=== PATIENT | male | born 1960 | race African-American/Black ===

== ENCOUNTER → 2017-09-27 08:56 | Outpatient (CLI) | payer OTHER, SELFPAY ==
[2017-09-27 11:51] LABS: Absolute Lymphocyte Count 1.79 X10^3/ul (0.83-4.51); Absolute Neutrophil Count 1.7 X10^3/uL (2.0-7.7); Eosinophil# 0.15 X10^3/uL; Eosinophils% 3.6 % (0-5); Hematocrit 39.7 % (40-54); Hemoglobin 12.7 g/dl (13.0-16.5); Lymphocyte # 1.79 X10^3/ul (4.0); Lymphocyte % 42.6 % (19-41); Mean Corpuscular Volume 78.3 fL (80-94); Mean Platelet Vol. 11.9 fl (6.2-12.0); Monocyte# 0.54 X10^3/uL; Monocyte% 12.9 % (0-10); Neutrophil # 1.72 X10^3/uL (2.7-7.7); Neutrophil % 40.9 % (47-70); Platelet Count 233 K/mm3 (150-450); RBC Distribution Width CV 14.7 % (11.6-14.6); RBC Distribution Width SD 41.5 fl (35.1-43.9); Red Blood Count 5.07 M/mm3 (4.6-6.2); White Blood Count 4.2 K/mm3 (4.4-11.0)
[2017-09-27 11:52] LABS: POSITIVE COUNT NO; POSITIVE DIFFERENTIAL NO; POSITIVE MORPHOLOGY NO
[2017-09-27 12:30] LABS: ALB/GLOB Ratio 0.8 RATIO (0.9-2.4); AST(SGOT) 16 U/L (15-37); Alanine Aminotransfer ALT/SGPT 31 U/L (16-61); Albumin, Serum 3.5 g/dL (3.2-5.0); Alkaline Phosphatase 131 U/L (45-117); Anion Gap 9 (5-15); BUN 9 mg/dL (7-18); BUN/Creat Ratio 8.4 RATIO (10-20); Calcium,Total 8.5 mg/dL (8.5-10.1); Chloride 104 mmol/L (98-107); Creatinine, Serum 1.07 mg/dL (0.70-1.30); EST Glomerular Filtration Rate 75 mL/min (>60); Est Glom Filt Rate - Afr Amer 91 mL/min (>60); Globulin 4.4 g/dL (2.2-4.2); Glucose 117 mg/dL (74-106); PSA,Total - Annual Screen 0.61 ng/mL (0.00-4.00); Potassium 3.6 mmol/L (3.5-5.1); Protein, Total 7.9 g/dL (6.4-8.2); Sodium Level 139 mmol/L (136-145); Thyroid Stim Hormone (TSH) 1.16 uIU/mL (0.358-3.74)
[2017-09-29 06:24] LABS: Hep C Antibodies 0.1 s/co ratio (0.0-0.9)
== END ==
PROVIDERS: Family Provider Family Medicine Geriatric Medicine; PCP Family Medicine Geriatric Medicine; Visit Provider Family Medicine Geriatric Medicine
DX: I10 Essential (primary) hypertension (principal); Z12.5 Encounter for screening for malignant neoplasm of prostate; Z13.89 Encounter for screening for other disorder
CPT/HCPCS: 36415; 80053; 84153; 84443; 85025; 86803; G0103

== ENCOUNTER → 2018-03-25 10:33 | Outpatient (CLI) | payer OTHER, SELFPAY ==
[2018-03-25 12:22] LABS: Absolute Lymphocyte Count 1.91 X10^3/ul (0.83-4.51); Absolute Neutrophil Count 2.1 X10^3/uL (2.0-7.7); Basophil# 0.01 X10^3/uL; Basophil% 0.2 % (0-1); Eosinophils% 2.2 % (0-5); Hematocrit 40.8 % (40-54); Hemoglobin 12.6 g/dl (13.0-16.5); Lymphocyte # 1.91 X10^3/ul (4.0); Lymphocyte % 41.6 % (19-41); Mean Corp Hgb Conc 30.9 g/gl (32-36); Mean Corpuscular Hgb 24.6 pg (27.0-32.0); Mean Corpuscular Volume 79.7 fL (80-94); Monocyte# 0.42 X10^3/uL; Monocyte% 9.2 % (0-10); Neutrophil # 2.14 X10^3/uL (2.7-7.7); Neutrophil % 46.6 % (47-70); Platelet Count 225 K/mm3 (150-450); RBC Distribution Width CV 14.6 % (11.6-14.6); RBC Distribution Width SD 42.3 fl (35.1-43.9); Red Blood Count 5.12 M/mm3 (4.6-6.2); White Blood Count 4.6 K/mm3 (4.4-11.0)
[2018-03-25 12:25] LABS: POSITIVE COUNT NO; POSITIVE DIFFERENTIAL NO; POSITIVE MORPHOLOGY NO
[2018-03-25 12:44] LABS: ALB/GLOB Ratio 0.7 RATIO (0.9-2.4); AST(SGOT) 19 U/L (15-37); Alanine Aminotransfer ALT/SGPT 41 U/L (16-61); Albumin, Serum 3.4 g/dL (3.2-5.0); Alkaline Phosphatase 127 U/L (45-117); Anion Gap 8 (5-15); BUN 11 mg/dL (7-18); BUN/Creat Ratio 9.2 RATIO (10-20); Calcium,Total 8.5 mg/dL (8.5-10.1); Chloride 105 mmol/L (98-107); EST Glomerular Filtration Rate 66 mL/min (>60); Est Glom Filt Rate - Afr Amer 80 mL/min (>60); Globulin 4.7 g/dL (2.2-4.2); Glucose 99 mg/dL (74-106); Potassium 3.9 mmol/L (3.5-5.1); Protein, Total 8.1 g/dL (6.4-8.2); Sodium Level 138 mmol/L (136-145); Thyroid Stim Hormone (TSH) 1.39 uIU/mL (0.358-3.74)
[2018-03-26 12:16] LABS: Vitamin D,25 Hydroxy 10.4 ng/mL (29.95-100.01)
== END ==
PROVIDERS: Family Provider Family Medicine Geriatric Medicine; PCP Family Medicine Geriatric Medicine; Visit Provider Family Medicine Geriatric Medicine
DX: E55.9 Vitamin D deficiency, unspecified (principal); I10 Essential (primary) hypertension
CPT/HCPCS: 36415; 80053; 82306; 84443; 85025

== ENCOUNTER → 2018-06-12 16:27 | Outpatient (CLI) | payer OTHER, SELFPAY ==
--- OUTSIDE RECORDS SUMMARY | 2018-08-07 22:40 | XMS RPT_ITS ---
:1960 Author Organization OHIP Care Team Providers Name Role Phone Emanuel, Doron Chi Attending Unavailable Emanuel, Doron Chi Primary Care Unavailable Emanuel, Doron Chi Attending Unavailable Emanuel, Doron Chi Primary Care Unavailable Emanuel, Doron Chi Attending Unavailable Emanuel, Doron Chi Referring Unavailable Emanuel, Doron Chi Primary Care Unavailable PROBLEMS PROBLEMS DATE TYPE CONDITION / CODE ATTENDING STATUS SOURCE 06/12/2018 Unknown R68.83 - Chills Emanuel, Doron Chi Active [facility] (without fever) / Community R68.83(ICD-10) Hospital Repository 03/25/2018 Unknown I10 - Essential Emanuel, Doron Chi Active [facility] (primary) Community hypertension / Hospital I10(ICD-10) Repository 03/25/2018 Unknown E55.9 - Vitamin D Emanuel, Doron Chi Active [facility] deficiency, Community unspecified / Hospital E55.9(ICD-10) Repository 09/27/2017 Unknown Z13.89 - Encounter Emanuel, Doron Chi Active [facility] for screening for Community other disorder / Hospital Z13.89(ICD-10) Repository 09/27/2017 Unknown Z12.5 - Encounter Emanuel, Doron Chi Active [facility] for screening for Community malignant neoplasm [facility] of prostate / Repository Z12.5(ICD-10) PROCEDURES PROCEDURES No Procedure Records FoundRESULTS RESULTS Observed: 06/12/2018 Status: F Source: [place] RESPIRATORY PANEL 4:45 PM [facility] MOLECULAR REPOSITORY RP PANEL ADENOVIRUS Not Detected HUMAN METAPHNEUMO Not Detected INFLUENZA A Not Detected INFLUENZA A (SUBTYPE H1) Not Detected INFLUENZA A (SUBTYPE H3) Not Detected INFLUENZA B Not Detected PARAINFLUENZA 1 Not Detected PARAINFLUENZA 2 Not Detected PARAINFLUENZA 3 Not Detected PARAINFLUENZA 4 Not Detected RHINOVIRUS Not Detected RSV A Not Detected RSV B Not Detected NAAT METHOD Testing was performed using nucleic acid amplification Performed By: #### M100.638 #### [facility] [address] [place], [address] CBC W/DIFF, AUTOMATED Collected: 03/25/2018 Status: F Source: [place] 10:34 AM [facility] REPOSITORY TYPE CODE TESTS RESULT OUT OF RANGE REFERENCE UNITS LAB L100.1000 4.4-11.0 K/mm3 Normal WBC 4.6 LAB L100.1200 4.6-6.2 M/mm3 Normal RBC 5.12 LAB L100.1300 13.0-16.5 g/dl Low HGB 12.6 LAB L100.1400 40-54 % Normal HCT 40.8 LAB L100.1500 80-94 fL Low MCV 79.7 LAB L100.1600 27.0-32.0 pg Low MCH 24.6 LAB L100.1700 32-36 g/gl Low MCHC 30.9 LAB L100.1810 11.6-14.6 % Normal RDW CV 14.6 LAB L100.1820 35.1-43.9 fl Normal RDW SD 42.3 LAB L100.1900 150-450 K/mm3 Normal PLT 225 LAB L100.2000 6.2-12.0 fl Normal MPV 11.0 LAB L100.2100 47-70 % Low NEUT% 46.6 LAB L100.2200 19-41 % High LY% 41.6 LAB L100.2300 0-10 % Normal MONO% 9.2 LAB L100.2400 0-5 % Normal EO% 2.2 LAB L100.2500 0-1 % Normal BASO% 0.2 LAB L100.2550 0.0-0.9 % Normal IM GRAN % 0.200 Result Comment: IG% - Immature Granulocytes (promyelocytes, myelocytes and metamyelocytes) > 1% indicates that a LEFT SHIFT is Present. LAB L100.2620 2.0-7.7 X10 3/uL Normal Absolute Neut 2.1 LAB L100.2720 0.83-4.51 X10 3/ul Normal Absolute Lymph 1.91 Performed By: #### L100.0100 #### [facility] [address] [place], [address] COMPREHENSIVE METABOLIC Collected: 03/25/2018 Status: F Source: [facility] 10:34 AM [facility] REPOSITORY TYPE CODE TESTS RESULT OUT OF RANGE REFERENCE UNITS LAB L501.0100 74-106 mg/dL Normal GLU 99 Result Comment: Please note revised GLUCOSE reference range effective 2017. LAB L501.1000 7-18 mg/dL Normal BUN 11 LAB L501.1100 0.70-1.30 mg/dL Normal CREAT,SERUM 1.20 Result Comment: The validity of the calculated GFR AND GFRAA in patients over 70 years has not been determined. Clinical correlation is essential. LAB L501.1110 >60 mL/min Normal EST GFR 66 Result Comment: Non- GFR Calc LAB L501.1115 >60 mL/min Normal EST GFR - AA 80 Result Comment: GFR Calc LAB L501.1300 10-20 RATIO Low BUN/CRE 9.2 LAB L501.1500 6.4-8.2 g/dL Normal T PROT 8.1 LAB L501.1800 3.2-5.0 g/dL Normal ALB 3.4 LAB L501.1950 2.2-4.2 g/dL High GLOB 4.7 LAB L501.2000 0.9-2.4 RATIO Low A/G 0.7 LAB L501.2200 8.5-10.1 mg/dL Normal CA 8.5 LAB L501.4100 15-37 U/L Normal AST 19 LAB L501.4305 45-117 U/L High ALK P 127 LAB L501.4405 16-61 U/L Normal ALT 41 LAB L501.4600 0.20-1.00 mg/dL Normal T BILI 0.60 LAB L501.5300 136-145 mmol/L Normal NA 138 LAB L501.5600 3.5-5.1 mmol/L Normal K 3.9 LAB L501.5900 98-107 mmol/L Normal CL 105 LAB L501.6100 21.0-32.0 mmol/L Normal CO2 25.0 LAB L501.6200 5-15 Normal GAP 8 Performed By: #### L500.4050, L501.9520 #### [facility] [address] [place], [address] THYROID STIM HORMONE Collected: 03/25/2018 Status: F Source: [place] (TSH) 10:34 AM [facility] REPOSITORY TYPE CODE TESTS RESULT OUT OF RANGE REFERENCE UNITS LAB L501.9520 0.358-3.74 uIU/mL Normal TSH 1.39 Performed By: #### L500.4050, L501.9520 #### [facility] [address] [facility] [place], [address] VITAMIN D,25 HYDROXY Collected: 03/25/2018 Status: F Source: [place] 10:34 AM [facility] REPOSITORY TYPE CODE TESTS RESULT OUT OF REFERENCE UNITS RANGE LAB L506.1000 29.95-100.01 ng/mL Low Vitamin D 10.4 25-OH Result Comment: Vitamin D 25(OH) Status Range Deficiency <20 ng/mL (50nmol/L) Insuffciency 20 - 30 ng/mL (50 - 75 nmol/L) Sufficiency 30 - 100 ng/mL (75 - 250 nmol/L) Toxicity >100 ng/mL (>250 nmol/L) Performed By: #### L506.1000 #### [facility] [address] [place], [place], [address] CBC W/DIFF, AUTOMATED Collected: 09/27/2017 Status: F Source: [place] 10:14 AM [facility] REPOSITORY TYPE CODE TESTS RESULT OUT OF RANGE REFERENCE UNITS LAB L100.1000 4.4-11.0 K/mm3 Low WBC 4.2 LAB L100.1200 4.6-6.2 M/mm3 Normal RBC 5.07 LAB L100.1300 13.0-16.5 g/dl Low HGB 12.7 LAB L100.1400 40-54 % Low HCT 39.7 LAB L100.1500 80-94 fL Low MCV 78.3 LAB L100.1600 27.0-32.0 pg Low MCH 25.0 LAB L100.1700 32-36 g/gl Normal MCHC 32.0 LAB L100.1810 11.6-14.6 % High RDW CV 14.7 LAB L100.1820 35.1-43.9 fl Normal RDW SD 41.5 LAB L100.1900 150-450 K/mm3 Normal PLT 233 LAB L100.2000 6.2-12.0 fl Normal MPV 11.9 LAB L100.2100 47-70 % Low NEUT% 40.9 LAB L100.2200 19-41 % High LY% 42.6 LAB L100.2300 0-10 % High MONO% 12.9 LAB L100.2400 0-5 % Normal EO% 3.6 LAB L100.2500 0-1 % Normal BASO% 0.0 LAB L100.2550 0.0-0.9 % Normal IM GRAN % 0.000 Result Comment: IG% - Immature Granulocytes (promyelocytes, myelocytes and metamyelocytes) > 1% indicates that a LEFT SHIFT is Present. LAB L100.2620 2.0-7.7 X10 3/uL Low Absolute Neut 1.7 LAB L100.2720 0.83-4.51 X10 3/ul Normal Absolute Lymph 1.79 Performed By: #### L100.0100 #### [facility] [address] [place], [address] COMPREHENSIVE METABOLIC Collected: 09/27/2017 Status: F Source: [facility] 10:14 AM [facility] REPOSITORY TYPE CODE TESTS RESULT OUT OF RANGE REFERENCE UNITS LAB L501.0100 74-106 mg/dL High GLU 117 Result Comment: Fasting Glucose result from 100 to 125 mg/dL suggests IMPAIRED HOMEOSTASIS per A.D.A. criteria. Please note revised GLUCOSE reference range effective 2017. LAB L501.1000 7-18 mg/dL Normal BUN 9 LAB L501.1100 0.70-1.30 mg/dL Normal CREAT,SERUM 1.07 Result Comment: The validity of the calculated GFR AND GFRAA in patients over 70 years has not been determined. Clinical correlation is essential. LAB L501.1110 >60 mL/min Normal EST GFR 75 Result Comment: Non- GFR Calc LAB L501.1115 >60 mL/min Normal EST GFR - AA 91 Result Comment: GFR Calc LAB L501.1300 10-20 RATIO Low BUN/CRE 8.4 LAB L501.1500 6.4-8.2 g/dL Normal T PROT 7.9 LAB L501.1800 3.2-5.0 g/dL Normal ALB 3.5 LAB L501.1950 2.2-4.2 g/dL High GLOB 4.4 LAB L501.2000 0.9-2.4 RATIO Low A/G 0.8 LAB L501.2200 8.5-10.1 mg/dL Normal CA 8.5 LAB L501.4100 15-37 U/L Normal AST 16 LAB L501.4305 45-117 U/L High ALK P 131 LAB L501.4405 16-61 U/L Normal ALT 31 Result Comment: Please note revised ALT reference range effective 2017. LAB L501.4600 0.20-1.00 mg/dL Normal T BILI 0.50 LAB L501.5300 136-145 mmol/L Normal NA 139 LAB L501.5600 3.5-5.1 mmol/L Normal K 3.6 LAB L501.5900 98-107 mmol/L Normal CL 104 LAB L501.6100 21.0-32.0 mmol/L Normal CO2 26.0 LAB L501.6200 5-15 Normal GAP 9 Performed By: #### L500.4050, L501.9520, L501.9910 #### [facility] [address] [place], [address] THYROID STIM HORMONE Collected: 09/27/2017 Status: F Source: [place] (TSH) 10:14 AM [facility] REPOSITORY TYPE CODE TESTS RESULT OUT OF RANGE REFERENCE UNITS LAB L501.9520 0.358-3.74 uIU/mL Normal TSH 1.16 Performed By: #### L500.4050, L501.9520, L501.9910 #### [facility] [address] [place], [address] PSA,TOTAL - ANNUAL Collected: 09/27/2017 Status: F Source: [place] SCREEN 10:14 AM [facility] REPOSITORY TYPE CODE TESTS RESULT OUT OF RANGE REFERENCE UNITS LAB L501.9910 0.00-4.00 ng/mL Normal PSA,TOT 0.61 SCREEN Result Comment: This test was performed using the TPSA assay method for the [employer] chemistry system. Values obtained with different assay methods cannot be used interchangably. When changing PSA assays in the course of monitoring a patient, additional sequential testing should be carried out to confirm baseline values. Performed By: #### L500.4050, L501.9520, L501.9910 #### [facility] [address] [place], [address] HEPATITIS C ANTIBODIES Collected: 09/27/2017 Status: F Source: [place] 10:14 AM [facility] REPOSITORY TYPE CODE TESTS RESULT OUT OF RANGE REFERENCE UNITS LAB L3100.0650 0.0-0.9 s/co ratio Normal HEP C AB 0.1 Result Comment: Negative: < 0.8 Indeterminate: 0.8 - 0.9 Positive: > 0.9 The CDC recommends that a positive HCV antibody result be followed up with a HCV Nucleic Acid Amplification test (101535). Performed at: [facility] [id number] Cardiopulmonary Technologist: Jerzy Wright PhD, Phone: [phone] Performed By: #### L3100.0625 #### [facility] (refer to report for specific site) refer to report for address and phone number ALLERGIES ALLERGIES DATE TYPE / CODE NAME / CODE REACTION SEVERITY SOURCE 07/18/2014 Drug doxycycline Hives Unknown [facility] Allergy/416 calcium/[id number] [facility] 489978([facility] ED [facility]) Repository 07/18/2014 Drug doxycycline Hives Unknown [facility] Allergy/416 hyclate/[id number] [facility] 812707([facility] ED [facility]) Repository 07/18/2014 Drug doxycycline Hives Unknown [facility] Allergy/416 monohydrate/[id number] [facility] 447010([place] 264111(RXNO) [facility] [place]) Repository ENCOUNTERS ENCOUNTERS ADMIT/DISCHARGE ACCOUNT ADMITTING ENCOUNTER LOCATION SOURCE NUMBER CLASS 06/12/2018 [id number] [facility] ing:PSN Repository 03/25/2018 [id number] [facility] ing:POLAB3 Repository 09/27/2017 [id number] Ambulatory [facility] 6 [facility] ing:POLAB3 Repository PAYERS PAYERS ENCOUNTER GUARANTOR PAYER SUBSCRIBER SOURCE 06/12/2018 JOVANY Yuan [id number] Insurance:CIGNAPolicy TURNERDOB: [facility] MARKY [place]: [id number] [id number] Repository [address]Hdv: (330) Date:8376-24-14[phone] () [id number], [place] [address]YU: 06/12/2018 Secondary NOT GIVENUNK [facility] Insurance:SELF PAY [facility] Number: Effective Repository Date:2018-06-12 03/25/2018 Jovany Yuan [id number] Insurance:CIGNAPolicy TurnerDOB: Community [place]: [id number] [id number] Repository [address]Uoe: (330) Date:9090-77-40[phone] () [id number], [place] [address]CJ: 03/25/2018 Secondary NOT GIVENUNK [place] Insurance:SELF PAY [facility] Number: Effective Repository Date:2018-03-25 09/27/2017 Jovany Yuan [id number] Insurance:CIGNAPolicy TurnerDOB: [facility] Marky Number: [id number] [id number] Repository [address]Ivw: (330) Date:3288-99-72[phone] () [id number], [place] [address]XM: 09/27/2017 Secondary NOT GIVENUNK [facility] Insurance:SELF PAY [facility] Number: Effective Repository Date:2017-09-27
== END ==
PROVIDERS: Family Provider Family Medicine Geriatric Medicine; PCP Family Medicine Geriatric Medicine; Referring Provider Family Medicine Geriatric Medicine; Visit Provider Family Medicine Geriatric Medicine
DX: R68.83 Chills (without fever) (principal)
CPT/HCPCS: 87633

== ENCOUNTER 2018-07-07 15:41 | Emergency (ER) | payer OTHER, SELFPAY ==
[2018-07-07 15:41] VITALS: BP 164/84; PULSE 68; RESP 16; TEMP 36.8; O2SAT 100; BMI 41.3
--- NOTE | 2018-07-07 16:25 | EKG12_ITS ---
Test Reason : COMPLAINT Blood Pressure : / mmHG Vent. Rate : 066 BPM Atrial Rate : 066 BPM P-R Int : 194 ms QRS Dur : 070 ms QT Int : 384 ms P-R-T Axes : 059 -06 057 degrees QTc Int : 402 ms Normal sinus rhythm Nonspecific T wave abnormality Abnormal ECG Confirmed by ROBERT BRAVO ([id number]), online content editor DREA TERESA ([id number] on 07/21/2018 1:17:07 PM Referred By: VITALY Confirmed By:ROBERT BRAVO
[2018-07-07 16:42] LABS: Bacteria 0 SEEN /hpf (None Seen); Mucous, Urine 0 SEEN /hpf (<or=2+)
[2018-07-07 16:53] LABS: Color, Urine Yellow (Yellow); Glucose, Dipstick Normal (Normal); Ketone-Dipstick Negative (Negative); Leukocyte Esterase-Dipstick 500 /ul (Negative); Nitrite-Dipstick Negative (Negative); Occult Blood-Urine 150 /ul (Negative); Protein-Dipstick 15 mg/dl (Negative); Urine Bilirubin Dipstick Negative (Negative); Urine Clarity Sl. Cloudy (Clear); Urine Urobilinogen 1 mg/dl (Normal); Urine pH 6.5 (5.0 - 8.0)
[2018-07-07 16:58] LABS: White Blood Cells 25-50 SEEN /hpf (0-5)
[2018-07-07 16:59] LABS: Red Blood Cells-Urine 0-5 SEEN /hpf (0-5); Squamous Epithelial Cells - UA 0-5 SEEN /hpf (0-5)
[2018-07-07] MEDS: Ketorolac 15 MG/ML Vial IV (17:00)
[2018-07-07 17:08] LABS: Absolute Lymphocyte Count 1.77 X10^3/ul (0.83-4.51); Absolute Neutrophil Count 8.7 X10^3/uL (2.0-7.7); Basophil# 0.01 X10^3/uL; Basophil% 0.1 % (0-1); Eosinophil# 0.04 X10^3/uL; Eosinophils% 0.3 % (0-5); Hematocrit 37.1 % (40-54); Hemoglobin 11.8 g/dl (13.0-16.5); Lymphocyte # 1.77 X10^3/ul (4.0); Lymphocyte % 14.8 % (19-41); Mean Corp Hgb Conc 31.8 g/gl (32-36); Mean Corpuscular Hgb 25.2 pg (27.0-32.0); Mean Corpuscular Volume 79.3 fL (80-94); Mean Platelet Vol. 10.5 fl (6.2-12.0); Monocyte# 1.43 X10^3/uL; Neutrophil # 8.66 X10^3/uL (2.7-7.7); Neutrophil % 72.7 % (47-70); Platelet Count 210 K/mm3 (150-450); RBC Distribution Width CV 14.6 % (11.6-14.6); RBC Distribution Width SD 41.8 fl (35.1-43.9); Red Blood Count 4.68 M/mm3 (4.6-6.2); White Blood Count 11.9 K/mm3 (4.4-11.0)
--- NOTE | 2018-07-07 17:13 | ED.VIS.GEN ---
History of Present Illness Chief Complaint: Complaint Informant: Patient Onset: Yesterday Context: Gradual Onset Timing: Intermittent Narrative: Yesterday evening patient had subjective fevers and Reiger's/chills. Upon urinating after first noticing that, he saw blood, and subsequently has seen some degree of hematuria with every urination since, and now has painful burning dysuria in addition to some clots. No urinary retention symptoms. Since yesterday evening he has also had gradual onset of discomfort in his right lower anterior flank. His back is sore but nonlateralizing. He had a testicular torsion with resultant orchiectomy remotely. Soreness does radiate into his scrotum but it is throughout. No swelling there. No shortness of breath, chest discomfort, or palpitations but he states both of his arms are sore and achy. His left one is worse. 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 No known history of prostate problems or urinary infections in the past. - Past Medical History (1) HTN (hypertension) Status: Chronic Past Medical History - Allergies and Home Meds Allergies/Adverse Reactions: Allergies doxycycline calcium [From Vibramycin] Adverse Reaction (Verified 07/18/14 04:10) Hives doxycycline hyclate [From Vibramycin] Adverse Reaction (Verified 07/18/14 04:10) Hives doxycycline monohydrate [From Vibramycin] Adverse Reaction (Verified 07/18/14 04:10) Hives Primary Care Physician: Doron Castellanos Chi, MD [Primary Care Provider] - Surgical History: appendectomy, - - orchiectomy due to testicular torsion Lives: With Family Smoking Status: Never smoker Review of Systems General: Reports: Chills, Fever, Malaise. Denies: Sweats Eyes: Denies: Visual changes - bilaterally, Diplopia ENT: Denies: Rhinorrhea, Sore throat Cardiovascular: Denies: Chest pain, Palpitations Respiratory: Denies: Dyspnea, Cough, Dyspnea on exertion Gastrointestinal: Reports: Abdominal pain, Nausea. Denies: Vomiting, Diarrhea, Melena, Hematochezia Genitourinary: Reports: Dysuria, Hematuria. Denies: Frequency Musculoskeletal: Reports: Back pain. Denies: Neck pain, Swelling, Extremity Pain Skin: Denies: Rash, Wounds Neurological: Denies: Headache, Weakness, Numbness Psych: Denies: Depression, Anxiety Endocrine: Denies: Heat intolerance, Cold intolerance Hematologic: Denies: Easy bruising, Easy bleeding Allergy: Denies: Swelling of the mouth, Swelling of the tongue Physical Exam Vital Signs/Narrative: Vital Signs Temp Pulse Resp BP Pulse Ox 07/07/18 15:41 98.2 F 68 16 164/84 H 100 Inital Vital Signs reviewed: Yes General: Well nourished, Well developed, Obese Head: Normocephalic, Atraumatic Eyes: Perrl, EOMI ENT: Moist mucous membranes, No rhinorrhea Neck: Supple, Nontender Cardiovascular: Regular rate, Regular rhythm, No murmurs Respiratory: No distress, CTA bilaterally, Chest nontender Abdomen: Soft, Nondistended, Normal bowel sounds, Tender - mild throughout lateral RLQ/flank. Negative for: Guarding, Rebound tenderness Back: Nontender, Normal Inspection, CVA tenderness - bilat mild, - - no rashes. Negative for: Spinal tenderness Extremities: Nontender, No edema Skin: Normal color, No rash Neurological: Alert, Oriented x3, Cranial nerves II-XII grossly intact, Normal Strength, Normal Sensation, Normal Gait Psychological: Normal affect Diagnostic/Tx/Re-eval Impressions Abdomen/Pelvis CT 07/07/18 17:15 IMPRESSION: Bilateral perinephric stranding, a nonspecific finding may be secondary to pyelonephritis. Mild bladder wall thickening associated with adjacent stranding may reflect cystitis. Atherosclerosis. Electronically Signed: Emily Tsang MD at 17:49 EST Tel , Service support , 07/07/18 17:15 CT Abd [Abdomen/Pelvis without Cont] [CT] Stat Laboratory Results 07/07/18 07/07/18 07/07/18 16:37 16:50 16:50 WBC 11.9 H RBC 4.68 Hgb 11.8 L Hct 37.1 L MCV 79.3 L MCH 25.2 L MCHC 31.8 L RDW 14.6 RDW Differential 41.8 Plt Count 210 MPV 10.5 Immature Gran % (Auto) 0.100 Neut % (Auto) 72.7 H Lymph % (Auto) 14.8 L [place] % (Auto) 12.0 H Eos % (Auto) 0.3 Baso % (Auto) 0.1 Absolute Neuts (auto) 8.7 H Absolute Lymphs (auto) 1.77 Total Counted Not Reportable Sodium 139 Potassium 3.5 Chloride 105 Carbon Dioxide 25.0 Anion Gap 9 BUN 14 Creatinine 1.08 Estim Creat Clear Calc 73.65 Est GFR (MDRD) Af Amer 90 Est GFR (MDRD) Non-Af 74 BUN/Creatinine Ratio 13.0 Glucose 87 Calcium 8.3 L Troponin I < 0.015 Urine Color Yellow Urine Clarity Sl. Cloudy Urine pH 6.5 Ur Specific [place] 1.010 Urine Protein 15 H Urine Glucose (UA) Normal Urine Ketones Negative Urine Occult Blood 150 H Urine Nitrite Negative Urine Bilirubin Negative Urine Urobilinogen 1 H Ur Leukocyte Esterase 500 H Urine RBC 0-5 SEEN Urine WBC 25-50 SEEN Ur Squamous Epith Cells 0-5 SEEN Urine Bacteria 0 SEEN Urine Mucus 0 SEEN Clinical Impression(s) from Imaging Studies Abdomen/Pelvis CT 07/07/18 17:15 IMPRESSION: Bilateral perinephric stranding, a nonspecific finding may be secondary to pyelonephritis. Mild bladder wall thickening associated with adjacent stranding may reflect cystitis. Atherosclerosis. Electronically Signed: Emily Tsang MD at 17:49 EST Tel , Service support , Brain CT 07/07/18 19:28 IMPRESSION: Normal unenhanced CT scan of the brain. Electronically Signed: Tristian Galeas MD at 20:51 EST , Service support , - Medical Decision Making Urinalysis, labs, CT are consistent with pyelonephritis with perinephric stranding bilaterally and around his bladder as well. There are no signs of stones or any other acute process. His symptoms are consistent with infection as well. Given his arm discomfort I did an EKG and troponin, they are both normal. His symptoms improved with treatment however he later told me that he developed severe headache and despite giving him Toradol, Reglan, morphine, and Zofran, he still had a significant headache that was untouched. For these reasons I obtained a CT, it is unremarkable, and I gave him a dose of dihydroergotamine 1 mg IV after we got his blood pressure down a little after treatment initially. He is a little improved but still has a headache but states that he wants to go home. He was empirically given Rocephin 1 g IV. He is tolerating oral fluids. 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 He will follow-up with his PCP, who can manage referrals to urology as needed. ED Disposition - Plan for ED Patient: Disposition: Home or Assisted Living Chief Complaint: Complaint Diagnosis: Pyelonephritis, acute, Left arm pain, Cephalgia Instructions: ED UTI Pyelonephritis Male Prescriptions: Hydrocodone Bitart/Apap 5-325 [[place] 5MG-325MG] 1 tab PO Q4H PRN PRN 2 Days #10 tab PRN Reason: Pain Ondansetron [Zofran] 8 mg PO Q8H PRN PRN #12 tab PRN Reason: Nausea Smz/Tmp Ds [Bactrim Ds] 1 tab PO BID #28 tab Referrals: Doron Castellanos Chi, MD [Primary Care Provider] - 3-5 Days
--- NOTE | 2018-07-07 17:15 | CT_ITS ---
STUDY: CT ABDOMEN AND PELVIS WITHOUT CONTRAST REASON FOR EXAM: Male, 57 years old. Right flank pain hematuria. RADIATION DOSAGE (If Supplied By Facility): CTDIvol = ( 23.96 ) mGy, DLP = ( 1179.03 ) mGycm TECHNIQUE: Transaxial images were obtained from the dome of the diaphragm to the symphysis pubis without oral contrast, and without intravenous contrast. Sagittal and coronal images were reconstructed. Individualized dose optimization techniques were used for this CT. COMPARISON: CTA of the chest dated July 18, 2014 FINDINGS: The visualized lung bases are unremarkable. The visualized portions of the heart are within normal limits. Normal liver. Normal gallbladder and extrahepatic biliary system. Normal spleen. Normal pancreas. Normal bilateral adrenal glands. There is bilateral perinephric stranding. There is a left extrarenal pelvis present. Normal visualized stomach. Normal small intestine. Normal colon. There is non-visualization of the appendix. Normal abdominal aorta. Normal inferior vena cava. Normal retroperitoneum. There are peripheral calcifications of the common iliac arteries. There is bladder wall thickening associated with mild adjacent stranding. Normal abdominal wall. Normal osseous structures. CT/Abdomen/Pelvis without Cont IMPRESSION: Bilateral perinephric stranding, a nonspecific finding may be secondary to pyelonephritis. Mild bladder wall thickening associated with adjacent stranding may reflect cystitis. Atherosclerosis. Electronically Signed: Emily Tsang MD at 17:49 EST Tel , Service support ,
--- NOTE | 2018-07-07 17:17 | ED.DCSUM_ITS ---
History of Present Illness Chief Complaint: Complaint Informant: Patient Onset: Yesterday Context: Gradual Onset Timing: Intermittent Narrative: Yesterday evening patient had subjective fevers and Reiger's/chills. Upon urinating after first noticing that, he saw blood, and subsequently has seen some degree of hematuria with every urination since, and now has painful burning dysuria in addition to some clots. No urinary retention symptoms. Since yesterday evening he has also had gradual onset of discomfort in his right lower anterior flank. His back is sore but nonlateralizing. He had a testicular torsion with resultant orchiectomy remotely. Soreness does radiate into his scrotum but it is throughout. No swelling there. No shortness of breath, chest discomfort, or palpitations but he states both of his arms are sore and achy. His left one is worse. 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 No known history of prostate problems or urinary infections in the past. - Past Medical History (1) HTN (hypertension) Status: Chronic Past Medical History - Allergies and Home Meds Allergies/Adverse Reactions: Allergies doxycycline calcium [From Vibramycin] Adverse Reaction (Verified 07/18/14 04:10) Hives doxycycline hyclate [From Vibramycin] Adverse Reaction (Verified 07/18/14 04:10) Hives doxycycline monohydrate [From Vibramycin] Adverse Reaction (Verified 07/18/14 04:10) Hives Primary Care Physician: Doron Castellanos Chi, MD [Primary Care Provider] - Surgical History: appendectomy, - - orchiectomy due to testicular torsion Lives: With Family Smoking Status: Never smoker Review of Systems General: Reports: Chills, Fever, Malaise. Denies: Sweats Eyes: Denies: Visual changes - bilaterally, Diplopia ENT: Denies: Rhinorrhea, Sore throat Cardiovascular: Denies: Chest pain, Palpitations Respiratory: Denies: Dyspnea, Cough, Dyspnea on exertion Gastrointestinal: Reports: Abdominal pain, Nausea. Denies: Vomiting, Diarrhea, Melena, Hematochezia Genitourinary: Reports: Dysuria, Hematuria. Denies: Frequency Musculoskeletal: Reports: Back pain. Denies: Neck pain, Swelling, Extremity Pain Skin: Denies: Rash, Wounds Neurological: Denies: Headache, Weakness, Numbness Psych: Denies: Depression, Anxiety Endocrine: Denies: Heat intolerance, Cold intolerance Hematologic: Denies: Easy bruising, Easy bleeding Allergy: Denies: Swelling of the mouth, Swelling of the tongue Physical Exam Vital Signs/Narrative: Vital Signs Temp Pulse Resp BP Pulse Ox 07/07/18 15:41 98.2 F 68 16 164/84 H 100 Inital Vital Signs reviewed: Yes General: Well nourished, Well developed, Obese Head: Normocephalic, Atraumatic Eyes: Perrl, EOMI ENT: Moist mucous membranes, No rhinorrhea Neck: Supple, Nontender Cardiovascular: Regular rate, Regular rhythm, No murmurs Respiratory: No distress, CTA bilaterally, Chest nontender Abdomen: Soft, Nondistended, Normal bowel sounds, Tender - mild throughout lateral RLQ/flank. Negative for: Guarding, Rebound tenderness Back: Nontender, Normal Inspection, CVA tenderness - bilat mild, - - no rashes. Negative for: Spinal tenderness Extremities: Nontender, No edema Skin: Normal color, No rash Neurological: Alert, Oriented x3, Cranial nerves II-XII grossly intact, Normal Strength, Normal Sensation, Normal Gait Psychological: Normal affect Diagnostic/Tx/Re-eval Impressions Abdomen/Pelvis CT 07/07/18 17:15 IMPRESSION: Bilateral perinephric stranding, a nonspecific finding may be secondary to pyelonephritis. Mild bladder wall thickening associated with adjacent stranding may reflect cystitis. Atherosclerosis. Electronically Signed: Emily Tsang MD at 17:49 EST Tel , Service support , 07/07/18 17:15 CT Abd [Abdomen/Pelvis without Cont] [CT] Stat Laboratory Results 07/07/18 07/07/18 07/07/18 16:37 16:50 16:50 WBC 11.9 H RBC 4.68 Hgb 11.8 L Hct 37.1 L MCV 79.3 L MCH 25.2 L MCHC 31.8 L RDW 14.6 RDW Differential 41.8 Plt Count 210 MPV 10.5 Immature Gran % (Auto) 0.100 Neut % (Auto) 72.7 H Lymph % (Auto) 14.8 L [place] % (Auto) 12.0 H Eos % (Auto) 0.3 Baso % (Auto) 0.1 Absolute Neuts (auto) 8.7 H Absolute Lymphs (auto) 1.77 Total Counted Not Reportable Sodium 139 Potassium 3.5 Chloride 105 Carbon Dioxide 25.0 Anion Gap 9 BUN 14 Creatinine 1.08 Estim Creat Clear Calc 73.65 Est GFR (MDRD) Af Amer 90 Est GFR (MDRD) Non-Af 74 BUN/Creatinine Ratio 13.0 Glucose 87 Calcium 8.3 L Troponin I < 0.015 Urine Color Yellow Urine Clarity Sl. Cloudy Urine pH 6.5 Ur Specific [place] 1.010 Urine Protein 15 H Urine Glucose (UA) Normal Urine Ketones Negative Urine Occult Blood 150 H Urine Nitrite Negative Urine Bilirubin Negative Urine Urobilinogen 1 H Ur Leukocyte Esterase 500 H Urine RBC 0-5 SEEN Urine WBC 25-50 SEEN Ur Squamous Epith Cells 0-5 SEEN Urine Bacteria 0 SEEN Urine Mucus 0 SEEN Clinical Impression(s) from Imaging Studies Abdomen/Pelvis CT 07/07/18 17:15 IMPRESSION: Bilateral perinephric stranding, a nonspecific finding may be secondary to pyelonephritis. Mild bladder wall thickening associated with adjacent stranding may reflect cystitis. Atherosclerosis. Electronically Signed: Emily Tsang MD at 17:49 EST Tel , Service support , Brain CT 07/07/18 19:28 IMPRESSION: Normal unenhanced CT scan of the brain. Electronically Signed: Tristian Galeas MD at 20:51 EST , Service support , - Medical Decision Making Urinalysis, labs, CT are consistent with pyelonephritis with perinephric stranding bilaterally and around his bladder as well. There are no signs of stones or any other acute process. His symptoms are consistent with infection as well. Given his arm discomfort I did an EKG and troponin, they are both normal. His symptoms improved with treatment however he later told me that he developed severe headache and despite giving him Toradol, Reglan, morphine, and Zofran, he still had a significant headache that was untouched. For these reasons I obtained a CT, it is unremarkable, and I gave him a dose of dihydroergotamine 1 mg IV after we got his blood pressure down a little after treatment initially. He is a little improved but still has a headache but states that he wants to go home. He was empirically given Rocephin 1 g IV. He is tolerating oral fluids. 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 He will follow-up with his PCP, who can manage referrals to urology as needed. ED Disposition - Plan for ED Patient: Disposition: Home or Assisted Living Chief Complaint: Complaint Diagnosis: Pyelonephritis, acute, Left arm pain, Cephalgia Instructions: ED UTI Pyelonephritis Male Prescriptions: Hydrocodone Bitart/Apap 5-325 [[place] 5MG-325MG] 1 tab PO Q4H PRN PRN 2 Days #10 tab PRN Reason: Pain Ondansetron [Zofran] 8 mg PO Q8H PRN PRN #12 tab PRN Reason: Nausea Smz/Tmp Ds [Bactrim Ds] 1 tab PO BID #28 tab Referrals: Doron Castellanos Chi, MD [Primary Care Provider] - 3-5 Days
[2018-07-07 17:19] LABS: Anion Gap 9 (5-15); BUN 14 mg/dL (7-18); Calcium,Total 8.3 mg/dL (8.5-10.1); Chloride 105 mmol/L (98-107); Creatinine, Serum 1.08 mg/dL (0.70-1.30); EST Glomerular Filtration Rate 74 mL/min (>60); Est Glom Filt Rate - Afr Amer 90 mL/min (>60); Estimated Creatinine Clearance 73.65 ml/min; Glucose 87 mg/dL (74-106); Potassium 3.5 mmol/L (3.5-5.1); Sodium Level 139 mmol/L (136-145)
[2018-07-07 17:21] LABS: POSITIVE COUNT NO; POSITIVE DIFFERENTIAL NO; POSITIVE MORPHOLOGY NO
[2018-07-07] MEDS: Ceftriaxone 1 GM/50 ML BAG IV (17:46)
[2018-07-07] MEDS: Ondansetron 4 MG/2 ML Vial IV (17:51)
[2018-07-07] MEDS: Acetaminophen 500 MG Tablet 1000 MG PO (18:24)
[2018-07-07] MEDS: Metoclopramide 10 MG/2 ML Vial 5 MG IV (18:36)
[2018-07-07] MEDS: Morphine 4 MG/ML Syringe IV (18:36)
[2018-07-07 18:40] VITALS: BP 141/61; PULSE 66; RESP 17; O2SAT 99
--- NOTE | 2018-07-07 19:28 | CT_ITS ---
STUDY: CT BRAIN WITHOUT CONTRAST REASON FOR EXAM: Male, 57 years old. Headache. RADIATION DOSAGE (If Supplied By Facility): CTDIvol = ( 44.99 ) mGy, DLP = ( 745.49 ) mGycm TECHNIQUE: Transaxial CT imaging of the brain was performed without administration of intravenous contrast material. Individualized dose optimization techniques were used for this CT. COMPARISON: None. FINDINGS: Normal soft tissue structures. Normal calvarium. Normal size ventricles and extra-axial spaces for the patient's age. Normal white matter tracts of the cerebral hemispheres. Normal basal ganglia and thalami. Normal brainstem. Normal cerebellum. There is no intracranial hemorrhage. There are no findings of an acute ischemic infarction. Normal visualized paranasal sinuses. CT/Brain/Head without Contrast IMPRESSION: Normal unenhanced CT scan of the brain. Electronically Signed: Tristian Galeas MD at 20:51 EST , Service support ,
[2018-07-07 19:57] VITALS: BP 135/58; RESP 18; O2SAT 98
[2018-07-07] MEDS: Dihydroergotamine 1 MG/ML Ampul IV (20:16)
[2018-07-07 21:34] VITALS: BP 166/70; PULSE 71; O2SAT 97
== END 2018-07-07 21:51 | disposition home or self-care (01) ==
PROVIDERS: Emergency Provider Emergency Medicine; Family Provider Family Medicine Geriatric Medicine; PCP Family Medicine Geriatric Medicine
DX: N10 Acute pyelonephritis (principal); M79.602 Pain in left arm; R51 Headache; I10 Essential (primary) hypertension; Z79.899 Other long term (current) drug therapy
CPT/HCPCS: 70450; 74176; 80048; 81001; 84484; 85025; 87077; 87086; 87088; 87186; 93005; 96361; 96365; 96374; 96375; 99283; J7040; J7050; A4216; J1110; J2405

== ENCOUNTER → 2018-10-09 16:07 | Outpatient (CLI) | payer BC, SELFPAY ==
[2018-10-09 17:07] LABS: Absolute Lymphocyte Count 1.93 X10^3/ul (0.83-4.51); Absolute Neutrophil Count 1.5 X10^3/uL (2.0-7.7); Basophil# 0.02 X10^3/uL; Basophil% 0.5 % (0-1); Eosinophils% 7.1 % (0-5); Hematocrit 38.3 % (40-54); Lymphocyte # 1.93 X10^3/ul (4.0); Mean Corp Hgb Conc 31.3 g/gl (32-36); Mean Corpuscular Hgb 25.1 pg (27.0-32.0); Mean Corpuscular Volume 80.1 fL (80-94); Mean Platelet Vol. 11.1 fl (6.2-12.0); Monocyte# 0.49 X10^3/uL; Monocyte% 11.7 % (0-10); Neutrophil # 1.46 X10^3/uL (2.7-7.7); Neutrophil % 34.7 % (47-70); Platelet Count 221 K/mm3 (150-450); RBC Distribution Width SD 40.6 fl (35.1-43.9); Red Blood Count 4.78 M/mm3 (4.6-6.2); White Blood Count 4.2 K/mm3 (4.4-11.0)
[2018-10-09 17:22] LABS: POSITIVE COUNT NO; POSITIVE DIFFERENTIAL NO; POSITIVE MORPHOLOGY NO
[2018-10-09 17:30] LABS: ALB/GLOB Ratio 0.9 RATIO (0.9-2.4); AST(SGOT) 22 U/L (15-37); Alanine Aminotransfer ALT/SGPT 38 U/L (16-61); Albumin, Serum 3.6 g/dL (3.2-5.0); Alkaline Phosphatase 131 U/L (45-117); Anion Gap 8 (5-15); BUN 9 mg/dL (7-18); BUN/Creat Ratio 8.1 RATIO (10-20); Calcium,Total 8.3 mg/dL (8.5-10.1); Chloride 108 mmol/L (98-107); Creatinine, Serum 1.11 mg/dL (0.70-1.30); EST Glomerular Filtration Rate 72 mL/min (>60); Est Glom Filt Rate - Afr Amer 87 mL/min (>60); Globulin 4.1 g/dL (2.2-4.2); Glucose 106 mg/dL (74-106); PSA,Total - Annual Screen 0.61 ng/mL (0.00-4.00); Protein, Total 7.7 g/dL (6.4-8.2); Sodium Level 142 mmol/L (136-145); Thyroid Stim Hormone (TSH) 1.29 uIU/mL (0.358-3.74)
== END ==
PROVIDERS: Family Provider Family Medicine Geriatric Medicine; PCP Family Medicine Geriatric Medicine; Visit Provider Family Medicine Geriatric Medicine
DX: I10 Essential (primary) hypertension (principal); Z12.5 Encounter for screening for malignant neoplasm of prostate
CPT/HCPCS: 36415; 80053; 84153; 84443; 85025; G0103

== ENCOUNTER → 2019-01-29 | Outpatient (CLI) | payer BC, SELFPAY ==
--- NOTE | 2019-01-29 15:41 | RAD_ITS ---
STUDY: X-RAY - LEFT HAND REASON FOR EXAM: Carpal tunnel pain. TECHNIQUE: 3 view(s) of the hand. COMPARISON: None. FINDINGS: Normal radiocarpal articulation. Normal distal radioulnar joint. Normal visualized carpal bones. Normal carpal articulations Normal carpometacarpal articulation of the thumb. Normal second through fifth carpometacarpal joints. Normal metacarpi. Normal metacarpophalangeal joint of the thumb. Normal interphalangeal joint of the thumb. Normal proximal and distal phalanges of the thumb. There is mild subchondral cystic change of the radial aspect of the third metacarpal head. Normal proximal and distal interphalangeal joints of the second through fifth fingers. Normal phalanges of the second through fifth fingers. The soft tissue structures are unremarkable. RAD/Hand Min 3 Views IMPRESSION: Mild subchondral cystic change of the third metacarpal head. Otherwise, unremarkable x-ray examination of the left hand. Electronically Signed: Dung Vaughan MD at 10:00 EDT Tel , Service support ,
--- NOTE | 2019-01-29 15:41 | RAD_ITS ---
STUDY: X-RAY - RIGHT HAND REASON FOR EXAM: Male, 58 years old. Pain possible carpal tunnel syndrome TECHNIQUE: 3 view(s) of the hand. COMPARISON: None. FINDINGS: There are no acute fractures. There are small osteophytes involving the metacarpals and phalanges. A few scattered small subchondral geodes. The bone mineralization is preserved. The soft tissue structures are unremarkable. RAD/Hand Min 3 Views IMPRESSION: Mild osteoarthrosis If there is clinical concern for carpal tunnel syndrome MRI of the wrist could be performed to further evaluate Electronically Signed: Jerome Miles, at 19:36 EDT Tel , Service support ,
== END | disposition home or self-care (01) ==
LOC: HPRAD 15:41
PROVIDERS: Family Provider Family Medicine Geriatric Medicine; PCP Family Medicine Geriatric Medicine; Referring Provider Orthopaedic Surgery; Visit Provider Orthopaedic Surgery
DX: G56.03 Carpal tunnel syndrome, bilateral upper limbs (principal)
CPT/HCPCS: 73130

== ENCOUNTER 2019-02-25 09:45 | Day surgery (SDC) | payer BC, SELFPAY ==
[2019-02-03 12:22] VITALS: BMI 41.3
--- NOTE | 2019-02-03 12:55 | HP_ITS ---
I have re-examined the patient. There are no clinical changes since date of exam. Intake Vital Signs 01/29/19 Height 5 ft 9 in 01/29/19 Weight: 270 lb 01/29/19 Body Mass Index (BMI) 39.9 Intake Visit Reasons: bilat carpal tunnel Allergies doxycycline calcium [From Vibramycin] Adverse Reaction (Verified 07/18/14 04:10) Hives doxycycline hyclate [From Vibramycin] Adverse Reaction (Verified 07/18/14 04:10) Hives doxycycline monohydrate [From Vibramycin] Adverse Reaction (Verified 07/18/14 04:10) Hives Medications Albuterol Inhaler 1 inh INHALATION DAILY 01/31/14 [History Confirmed 01/29/19] Lipitor 80 mg PO DAILY 01/31/14 [History Confirmed 01/29/19] Norvasc 10 mg PO DAILY 01/31/14 [History Confirmed 01/29/19] HydrOXYzine [Atarax] 50 mg PO DAILY 07/18/14 [History Confirmed 01/29/19] Metoprolol Tartrate [Lopressor (beta walter)] 100 mg PO DAILY 07/18/14 [History Confirmed 01/29/19] [facility] Social History (Updated 02/03/19 @ 12:55 by Chanel Espinosa DO) Smoking Status: Never smoker HPI bilat carpal tunnel: Surgical H&P: Yes Details: Parts of this documentation were recorded by a scribe, this documentation accurately reflects the service provided and the decisions made by me, Chanel Espinosa DO 01/29/19 9537. JOVANY VILLATORO is a 58 year old M new patient here today for referral from Dr. Castellanos for BL carpal tunnel syndrome. Patient states that his left hand is worse than the right. Had right EMG done in 2017 and left EMG done in 2015 at [facility]. Patient has tried nigth bracing. Denies any injections. Patient is constantly dropping things with his left hand. ROS Const Reports system reviewed and no additional complaints, except as docu Eyes Reports system reviewed and no additional complaints, except as docu ENT Reports system reviewed and no additional complaints, except as docu Card Reports system reviewed and no additional complaints, except as docu Resp Reports system reviewed and no additional complaints, except as docu GI Reports system reviewed and no additional complaints, except as docu Reports system reviewed and no additional complaints, except as docu Musc Reports as per HPI Skin/Breast Reports system reviewed and no additional complaints, except as docu Neuro Yes system reviewed and no additional complaints, except as docu Psych Reports system reviewed and no additional complaints, except as docu Endo Reports system reviewed and no additional complaints, except as docu Nathan/Lymph Reports system reviewed and no additional complaints, except as docu Aller/Immun Reports system reviewed and no additional complaints, except as docu Ortho Exam Right Wrist/Hand Right Wrist: Yes Tinel's Left Wrist/Hand Left Wrist: Yes Tinel's WRIST: atrophy of the thenar eminence. Assessment & Plan Problems 1. Carpal tunnel syndrome of left wrist G56.02 2. Carpal tunnel syndrome of right wrist G56.01 Plan Educated his EMG studies done a few years ago showed Moderate at the time but now have progressed to severe. Patient educated that since he does have thenar atrophy of the left that it is encouraged to have surgical release of the left carpal tunnel. Educated that another option would be steroid injection this day. Reviewed the pre-operative plans with the patient. Risks and benefits of the procedure were fully explained, including but not limited to infection, neurovascular injury, continued pain, arthritis, stiffness, need for further surgery, re-injury, DVT, PE, general risks of anesthesia, and loss of limb or life. The patient understands all the risks and does wish to proceed with written consent. Patient educated that he will be off work for about 2 weeks post op. Follow up when wishes to have surgery to sign consent or sooner if pain, swelling, numbness or associated symptoms, or concerns develop. All questions answered. Patient in agreement of plan. Orders Orders: Hand Min 3 Views 01/29/19 G56.01, G56.02 Hand Min 3 Views 01/29/19 G56.01, G56.02 Hand Min 3 Views 01/29/19 G56.01, G56.02 Coding Level of Care Code 06491 Diagnoses Carpal tunnel syndrome of left wrist G56.02 Carpal tunnel syndrome of right wrist G56.01 02/03/19 1255 <Electronically signed by Chanel darling DO> Date _ Chanel Espinosa DO
[2019-02-25] VITALS (9 sets, daily range): BP systolic 135–165; BP diastolic 77–91; PULSE 50–63; RESP 16–18; TEMP 36.1–37.2; O2SAT 98–100; BMI 41.4
[2019-02-25] MEDS: Cefazolin 2 GM in 0.9% Normal Saline 100 ML IV (13:10)
--- NOTE | 2019-02-25 14:08 | DCINST_ITS ---
Discharge Diet: No Restrictions - Leave dressing intact until seen postop in the office in 10 to 14 days. Call with any concerns or complaints in the meantime. Change dressing if it gets wet or soiled prior to office visit Discharge Activity: May Not Drive May shower in (days): 1 Ice area for (Minutes): 20 - Ice area for 20 minutes each hour while awake Weight Bearing Status: Weight bearing as tolerated Keep extremity elevated above heart level: Operative Extremity Call your doctor if your incision/area has: Continuous Slow Oozing, Sudden Increased Bleeding, Increased Pain/ Swelling, Increased Redness, Foul Smelling Discharge Call your doctor if you observe: Fever of 101 or Higher, Coldness, Increased Pain, Numbness or Tingling, Change in Color Allergies/Adverse Reactions: Allergies doxycycline calcium [From Vibramycin] Adverse Reaction (Verified 02/18/19 13:00) Hives doxycycline hyclate [From Vibramycin] Adverse Reaction (Verified 02/18/19 13:00) Hives doxycycline monohydrate [From Vibramycin] Adverse Reaction (Verified 02/18/19 13:00) Hives Medications to take at Discharge Lipitor 80 mg PO DAILY 01/31/14 Norvasc 10 mg PO DAILY 01/31/14 HydrOXYzine [Atarax] 50 mg PO DAILY 07/18/14 Metoprolol Tartrate [Lopressor (beta walter)] 100 mg PO DAILY 07/18/14 Albuterol Aerosols [Ventolin Aerosols] 2.5 mg INHALATION Q6HWA.RT PRN 02/18/19 Albuterol IH (ProAir) [Proair Hfa (SP)Vent Pts] 1 - 2 puff INHALATION Q6H PRN PRN 02/18/19 Primary Care Physician: Doron Castellanos Chi, MD [Primary Care Provider] - Test Results: Test results from this visit will be discussed in further detail at your follow- up appointment, if applicable.
--- NOTE | 2019-02-25 14:10 | PCM.OPRPT ---
Report of Operation Date of Procedure: 02/25/19 Pre-Operative Diagnosis: left carpal tunnel syndrome, third finger trigger finger Post-Operative Diagnosis: same Surgery/Procedure Performed:: left carpal tunnel release, left third finger a1 bruno release Type of Anesthesia:: Mavis Bell Anesthesiologist: Ottoniel Brown Fluids Replaced: 500cc lr Description of Procedure: Preoperative note Patient is a { 58yo mlae } patient with nerve conduction study confirming carpal tunnel syndrome. Patient failed conservative treatment for her carpal tunnel elected proceed with left carpal tunnel release. Risks benefits and alternatives surgery discussed with patient. Risks including but not limited to blood loss, blood clot, infection, neurovascular injury, failure procedure, loss of life and loss of limb. Patient is aware like proceed with left carpal tunnel release. Operative note Patient seen and examined preoperative holding area. Left hand was marked. History and physical and consent reviewed. Patient was brought to the operating room placed supine on the operating table. Sign in, anesthesia, antibiotics were administered. Left upper extremity was prepped and draped after Mavis block was initiated. All bony prominences well-padded SCDs placed on bilateral lower extremities. We marked out our incisions for our carpal tunnel release at the intersection of Kisha's line in the fourth ray flexed. We extended about a centimeter and a half. Timeout was performed. We then checked ensure that the Erhard block was working with pickups which it was. We then used a 15 blade to make a skin incision. We then dissected down tenotomy syllable of the transverse carpal ligament. We then used a new 15 blade cut through the transverse carpal ligament down to the level of the median nerve. We then further released the median nerve the combination of the 15 blade and tenotomies. The nerve was grayish in color and adherent to the transverse carpal ligament volarly. We released the transverse carpal ligament distally to the fat pad and then proximally under standard technique. We then palpated to ensure that we released all of the transverse carpal ligament which we did. We irrigated the incision with copious amounts of sterile saline. All bleeders were coagulated. The incision was closed with interrupted 4-0 nylon stitches. Tourniquet was deflated for total working time of 12 minutes. Patient tolerated procedure well there were no complications. Patient transferred to recovery room in stable condition. Patient also has left third finger and patient elected in the preop holding area to have his trigger finger release. In standard technique made a less than 1 cm incision over the MP dissect down tenotomies to level of the A1 bruno the A1 bruno was released the tendons and brought out of the incision and the finger was flexed and extended and we had no further triggering then irrigated the incision with copious muscle sterile saline. The incision was closed with interrupted 4-0 nylon stitches sterile dressings were applied. Postoperative note ibuprofen Leave dressing clean dry and intact Follow-up in 2 weeks Call with concerns This note was generated with [employer] dictation software. It may contain incorrect words, spelling, and punctuation that were not noted in checking the note before signing.
[2019-02-25] MEDS: HYDROcodone Bitartrate/Apap 5/325 Tablet PO (14:52)
== END 2019-02-25 15:38 | disposition home or self-care (01) ==
LOC: SDC 09:46 → AC 10:22
PROVIDERS: Family Provider Family Medicine Geriatric Medicine; PCP Family Medicine Geriatric Medicine; Referring Provider Orthopaedic Surgery; Visit Provider Orthopaedic Surgery
PROC: (CPT 64721; principal; 2019-02-25 11:00)
DX: G56.03 Carpal tunnel syndrome, bilateral upper limbs (principal); M65.332 Trigger finger, left middle finger; I10 Essential (primary) hypertension; J45.909 Unspecified asthma, uncomplicated; E78.00 Pure hypercholesterolemia, unspecified; Z86.711 Personal history of pulmonary embolism; Z79.899 Other long term (current) drug therapy
CPT/HCPCS: 26055; 64721; J7120

== ENCOUNTER → 2019-04-16 14:42 | Outpatient (CLI) | payer BC, SELFPAY ==
[2019-04-10 12:29] VITALS: BMI 41.4
[2019-04-16 16:43] LABS: Absolute Lymphocyte Count 1.71 X10^3/uL (0.83-4.51); Basophil# 0.01 X10^3/uL; Basophil% 0.2 % (0-1); Eosinophil# 0.11 X10^3/uL; Eosinophils% 2.6 % (0-5); Hematocrit 37.6 % (40-54); Hemoglobin 11.5 g/dL (13.0-16.5); Lymphocyte # 1.71 X10^3/ul (4.0); Mean Corp Hgb Conc 30.6 g/dL (32-36); Mean Corpuscular Hgb 24.5 pg (27.0-32.0); Mean Platelet Vol. 11.2 fl (6.2-12.0); Monocyte# 0.46 X10^3/uL; Monocyte% 10.8 % (0-10); NRBC Flagged by Analyzer 0 % (0-5); Neutrophil # 1.97 X10^3/uL (2.7-7.7); Neutrophil % 46.2 % (47-70); Platelet Count 227 K/mm3 (150-450); RBC Distribution Width CV 13.9 % (11.6-14.6); RBC Distribution Width SD 40.9 fl (35.1-43.9); White Blood Count 4.3 K/mm3 (4.4-11.0)
[2019-04-16 17:11] LABS: AST(SGOT) 17 U/L (15-37); Alanine Aminotransfer ALT/SGPT 32 U/L (16-61); Albumin, Serum 3.7 g/dL (3.2-5.0); Alkaline Phosphatase 107 U/L (45-117); Anion Gap 9 (5-15); BUN 11 mg/dL (7-18); BUN/Creat Ratio 9.6 RATIO (10-20); Calcium,Total 8.3 mg/dL (8.5-10.1); Chloride 108 mmol/L (98-107); Creatinine, Serum 1.15 mg/dL (0.70-1.30); EST Glomerular Filtration Rate 69 mL/min (>60); Est Glom Filt Rate - Afr Amer 83 mL/min (>60); Globulin 3.7 g/dL (2.2-4.2); Glucose 113 mg/dL (74-106); Potassium 3.4 mmol/L (3.5-5.1); Protein, Total 7.4 g/dL (6.4-8.2); Sodium Level 142 mmol/L (136-145); Thyroid Stim Hormone (TSH) 1.08 uIU/mL (0.358-3.74)
== END ==
PROVIDERS: Family Provider Family Medicine Geriatric Medicine; PCP Family Medicine Geriatric Medicine; Visit Provider Family Medicine Geriatric Medicine
DX: E55.9 Vitamin D deficiency, unspecified (principal); I10 Essential (primary) hypertension
CPT/HCPCS: 36415; 80053; 82306; 84443; 85025

== ENCOUNTER → 2019-10-12 15:10 | Outpatient (CLI) | payer BC, SELFPAY ==
[2019-04-10 12:29] VITALS: BMI 41.4
[2019-10-12 15:51] LABS: Absolute Lymphocyte Count 2.29 X10^3/uL (0.83-4.51); Absolute Neutrophil Count 2.1 X10^3/uL (2.0-7.7); Basophil# 0.01 X10^3/uL; Basophil% 0.2 % (0-1); Eosinophil# 0.11 X10^3/uL; Eosinophils% 2.1 % (0-5); Hematocrit 39.2 % (40-54); Hemoglobin 12.3 g/dL (13.0-16.5); Lymphocyte # 2.29 X10^3/ul (4.0); Lymphocyte % 43.7 % (19-41); Mean Corp Hgb Conc 31.4 g/dL (32-36); Mean Corpuscular Hgb 25.1 pg (27.0-32.0); Mean Platelet Vol. 11.4 fl (6.2-12.0); Monocyte# 0.77 X10^3/uL; Monocyte% 14.7 % (0-10); NRBC Flagged by Analyzer 0 % (0-5); Neutrophil # 2.05 X10^3/uL (2.7-7.7); Neutrophil % 39.1 % (47-70); Platelet Count 224 K/mm3 (150-450); RBC Distribution Width CV 14.7 % (11.6-14.6); RBC Distribution Width SD 41.8 fl (35.1-43.9); White Blood Count 5.2 K/mm3 (4.4-11.0)
[2019-10-12 16:18] LABS: ALB/GLOB Ratio 0.9 RATIO (0.9-2.4); AST(SGOT) 29 U/L (15-37); Alanine Aminotransfer ALT/SGPT 44 U/L (16-61); Albumin, Serum 3.8 g/dL (3.2-5.0); Alkaline Phosphatase 137 U/L (45-117); Anion Gap 8 (5-15); BUN 11 mg/dL (7-18); Calcium,Total 8.7 mg/dL (8.5-10.1); Chloride 104 mmol/L (98-107); EST Glomerular Filtration Rate 72 mL/min (>60); Est Glom Filt Rate - Afr Amer 88 mL/min (>60); Globulin 4.3 g/dL (2.2-4.2); Glucose 89 mg/dL (74-106); PSA,Total - Annual Screen 0.67 ng/mL (0.00-4.00); Potassium 3.6 mmol/L (3.5-5.1); Protein, Total 8.1 g/dL (6.4-8.2); Sodium Level 138 mmol/L (136-145); Thyroid Stim Hormone (TSH) 2.66 uIU/mL (0.358-3.74)
== END ==
LOC: POLAB3 15:10
PROVIDERS: PCP Family Medicine Geriatric Medicine; Visit Provider Family Medicine Geriatric Medicine
DX: I10 Essential (primary) hypertension (principal); Z13.89 Encounter for screening for other disorder
CPT/HCPCS: 36415; 80053; 84153; 84443; 85025; G0103

== ENCOUNTER → 2020-04-14 14:26 | Outpatient (CLI) | payer BC, SELFPAY ==
[2019-04-10 12:29] VITALS: BMI 41.4
[2020-04-14 15:53] LABS: Absolute Lymphocyte Count 1.75 X10^3/uL (0.83-4.51); Basophil# 0.01 X10^3/uL; Basophil% 0.2 % (0-1); Eosinophil# 0.13 X10^3/uL; Eosinophils% 2.9 % (0-5); Hemoglobin 12.2 g/dL (13.0-16.5); Lymphocyte # 1.75 X10^3/ul (4.0); Lymphocyte % 39.3 % (19-41); Mean Corp Hgb Conc 31.3 g/dL (32-36); Mean Corpuscular Hgb 24.7 pg (27.0-32.0); Mean Corpuscular Volume 79.1 fL (80-94); Mean Platelet Vol. 11.6 fl (6.2-12.0); Monocyte# 0.55 X10^3/uL; Monocyte% 12.4 % (0-10); NRBC Flagged by Analyzer 0 % (0-5); Neutrophil # 2.01 X10^3/uL (2.7-7.7); Neutrophil % 45.2 % (47-70); Platelet Count 217 K/mm3 (150-450); RBC Distribution Width SD 40.3 fl (35.1-43.9); Red Blood Count 4.93 M/mm3 (4.6-6.2); White Blood Count 4.5 K/mm3 (4.4-11.0)
[2020-04-14 15:58] LABS: Prothrombin Time (Protime)PT. 12.6 SECONDS (11.7-14.9)
[2020-04-14 16:21] LABS: ALB/GLOB Ratio 0.8 RATIO (0.9-2.4); AST(SGOT) 21 U/L (15-37); Alanine Aminotransfer ALT/SGPT 65 U/L (16-61); Albumin, Serum 3.6 g/dL (3.2-5.0); Alkaline Phosphatase 121 U/L (45-117); Anion Gap 7 (5-15); BUN 12 mg/dL (7-18); BUN/Creat Ratio 11.7 RATIO (10-20); Calcium,Total 8.5 mg/dL (8.5-10.1); Chloride 105 mmol/L (98-107); Creatinine, Serum 1.03 mg/dL (0.70-1.30); EST Glomerular Filtration Rate 78 mL/min (>60); Est Glom Filt Rate - Afr Amer 94 mL/min (>60); Globulin 4.6 g/dL (2.2-4.2); Glucose 90 mg/dL (74-106); Potassium 3.4 mmol/L (3.5-5.1); Protein, Total 8.2 g/dL (6.4-8.2); Sodium Level 139 mmol/L (136-145); Thyroid Stim Hormone (TSH) 1.63 uIU/mL (0.358-3.74)
== END ==
PROVIDERS: PCP Family Medicine Geriatric Medicine; Visit Provider Family Medicine Geriatric Medicine
DX: I10 Essential (primary) hypertension (principal)
CPT/HCPCS: 36415; 80053; 84443; 85025; 85610

== ENCOUNTER → 2020-06-21 17:45 | Outpatient (CLI) | payer BC, SELFPAY ==
[2019-04-10 12:29] VITALS: BMI 41.4
== END ==
LOC: MTDU 17:45
PROVIDERS: PCP Family Medicine Geriatric Medicine; Referring Provider Family Medicine Geriatric Medicine; Visit Provider Family Medicine Geriatric Medicine
DX: J20.9 Acute bronchitis, unspecified (principal); J21.8 Acute bronchiolitis due to other specified organisms
CPT/HCPCS: 87633; 87635; C9803; U0003

== ENCOUNTER → 2020-10-13 14:30 | Outpatient (CLI) | payer BC, SELFPAY ==
[2019-04-10 12:29] VITALS: BMI 41.4
--- NOTE | 2020-10-13 15:40 | RAD_ITS ---
STUDY: X-RAY - ABDOMEN/PELVIS REASON FOR EXAM: Male, 59 years old. FECAL IMPACTION TECHNIQUE: AP supine and upright views of the abdomen and pelvis. COMPARISON: None. FINDINGS: Normal visualized lung bases. No dilated loops of small bowel. There is fecal residue of the right colon. There is no demonstrated free abdominal air. The visualized liver, spleen and kidneys are grossly normal in size and morphology. There are calcified phleboliths in the pelvis. Normal visualized osseous structures. RAD/Abd Inc Decub and/or Erect IMPRESSION: Fecal retention of the right colon. Nonobstructive bowel gas pattern. Electronically Signed: Nick Roldan MD ([place]) at 14:54 EDT , Service support ,
[2020-10-13 17:26] LABS: Absolute Lymphocyte Count 1.92 X10^3/uL (0.83-4.51); Absolute Neutrophil Count 1.8 X10^3/uL (2.0-7.7); Basophil# 0.01 X10^3/uL; Basophil% 0.2 % (0-1); Eosinophils% 2.3 % (0-5); Hematocrit 41.1 % (40-54); Hemoglobin 12.6 g/dL (13.0-16.5); Lymphocyte # 1.92 X10^3/ul (4.0); Lymphocyte % 44.1 % (19-41); Mean Corp Hgb Conc 30.7 g/dL (32-36); Mean Corpuscular Hgb 24.9 pg (27.0-32.0); Mean Corpuscular Volume 81.1 fL (80-94); Mean Platelet Vol. 11.3 fl (6.2-12.0); Monocyte# 0.54 X10^3/uL; Monocyte% 12.4 % (0-10); NRBC Flagged by Analyzer 0 % (0-5); Neutrophil # 1.77 X10^3/uL (2.7-7.7); Neutrophil % 40.8 % (47-70); Platelet Count 229 K/mm3 (150-450); RBC Distribution Width CV 14.7 % (11.6-14.6); RBC Distribution Width SD 43.1 fl (35.1-43.9); Red Blood Count 5.07 M/mm3 (4.6-6.2); White Blood Count 4.4 K/mm3 (4.4-11.0)
[2020-10-13 20:29] LABS: ALB/GLOB Ratio 0.8 RATIO (0.9-2.4); AST(SGOT) 21 U/L (15-37); Alanine Aminotransfer ALT/SGPT 61 U/L (16-61); Albumin, Serum 3.5 g/dL (3.2-5.0); Alkaline Phosphatase 128 U/L (45-117); Anion Gap 7 (5-15); BUN 15 mg/dL (7-18); BUN/Creat Ratio 14.2 RATIO (10-20); Calcium,Total 8.6 mg/dL (8.5-10.1); Chloride 107 mmol/L (98-107); Creatinine, Serum 1.06 mg/dL (0.70-1.30); EST Glomerular Filtration Rate 75 mL/min (>60); Est Glom Filt Rate - Afr Amer 91 mL/min (>60); Globulin 4.5 g/dL (2.2-4.2); Glucose 82 mg/dL (74-106); PSA,Total - Annual Screen 0.82 ng/mL (0.00-4.00); Potassium 3.7 mmol/L (3.5-5.1); Sodium Level 141 mmol/L (136-145); Thyroid Stim Hormone (TSH) 1.95 uIU/mL (0.358-3.74)
== END ==
LOC: POLAB3 14:30 → RAD 15:32
PROVIDERS: PCP Family Medicine Geriatric Medicine; Referring Provider Family Medicine Geriatric Medicine; Visit Provider Family Medicine Geriatric Medicine
DX: K56.41 Fecal impaction (principal); I10 Essential (primary) hypertension; Z12.5 Encounter for screening for malignant neoplasm of prostate
CPT/HCPCS: 36415; 74019; 80053; 84153; 84443; 85025; G0103

== ENCOUNTER → 2020-11-24 16:54 | Outpatient (CLI) | payer BC, SELFPAY ==
[2019-04-10 12:29] VITALS: BMI 41.4
[2020-11-24 17:50] LABS: Anion Gap 5 (5-15); BUN 19 mg/dL (7-18); BUN/Creat Ratio 17.8 RATIO (10-20); Calcium,Total 8.5 mg/dL (8.5-10.1); Chloride 108 mmol/L (98-107); Creatinine, Serum 1.07 mg/dL (0.70-1.30); EST Glomerular Filtration Rate 74 mL/min (>60); Est Glom Filt Rate - Afr Amer 90 mL/min (>60); Glucose 94 mg/dL (74-106); Potassium 3.9 mmol/L (3.5-5.1); Sodium Level 140 mmol/L (136-145)
== END ==
PROVIDERS: PCP Family Medicine Geriatric Medicine; Visit Provider Family Medicine Geriatric Medicine
DX: I10 Essential (primary) hypertension (principal)
CPT/HCPCS: 36415; 80048

== ENCOUNTER → 2021-04-13 15:09 | Outpatient (CLI) | payer BC, SELFPAY ==
[2019-04-10 12:29] VITALS: BMI 41.4
[2021-04-13 16:07] LABS: Absolute Lymphocyte Count 1.84 X10^3/uL (0.83-4.51); Absolute Neutrophil Count 1.7 X10^3/uL (2.0-7.7); Basophil# 0.01 X10^3/uL; Basophil% 0.2 % (0-1); Eosinophil# 0.12 X10^3/uL; Eosinophils% 2.8 % (0-5); Hematocrit 39.3 % (40-54); Hemoglobin 12.5 g/dL (13.0-16.5); Lymphocyte # 1.84 X10^3/ul (0.83-4.51); Lymphocyte % 43.6 % (19-41); Mean Corp Hgb Conc 31.8 g/dL (32-36); Mean Corpuscular Hgb 25.6 pg (27.0-32.0); Mean Corpuscular Volume 80.5 fL (80-94); Mean Platelet Vol. 11.6 fl (6.2-12.0); Monocyte# 0.59 X10^3/uL; NRBC Flagged by Analyzer 0 % (0-5); Neutrophil # 1.66 X10^3/uL (2.7-7.7); Neutrophil % 39.4 % (47-70); Platelet Count 206 K/mm3 (150-450); RBC Distribution Width CV 13.9 % (11.6-14.6); RBC Distribution Width SD 40.8 fl (35.1-43.9); Red Blood Count 4.88 M/mm3 (4.6-6.2); White Blood Count 4.2 K/mm3 (4.4-11.0)
[2021-04-13 16:40] LABS: ALB/GLOB Ratio 0.8 RATIO (0.9-2.4); AST(SGOT) 19 U/L (15-37); Alanine Aminotransfer ALT/SGPT 38 U/L (16-61); Albumin, Serum 3.4 g/dL (3.2-5.0); Alkaline Phosphatase 105 U/L (45-117); Anion Gap 6 (5-15); BUN 16 mg/dL (7-18); BUN/Creat Ratio 14.3 RATIO (10-20); Calcium,Total 8.5 mg/dL (8.5-10.1); Chloride 107 mmol/L (98-107); Creatinine, Serum 1.12 mg/dL (0.70-1.30); EST Glomerular Filtration Rate 71 mL/min (>60); Est Glom Filt Rate - Afr Amer 85 mL/min (>60); Globulin 4.5 g/dL (2.2-4.2); Glucose 82 mg/dL (74-106); Potassium 4.1 mmol/L (3.5-5.1); Protein, Total 7.9 g/dL (6.4-8.2); Sodium Level 140 mmol/L (136-145); Thyroid Stim Hormone (TSH) 1.34 uIU/mL (0.358-3.74)
== END ==
PROVIDERS: PCP Family Medicine Geriatric Medicine; Visit Provider Family Medicine Geriatric Medicine
DX: I10 Essential (primary) hypertension (principal)
CPT/HCPCS: 36415; 80053; 84443; 85025

== ENCOUNTER 2021-07-24 10:06 | Outpatient (CLI) | payer BC, SELFPAY | END 2021-07-24 23:59 | disposition short-term general hospital (02) | LOC: PSN 10:08 | PROVIDERS: PCP Family Medicine Geriatric Medicine; Referring Provider Family Medicine Geriatric Medicine; Visit Provider Family Medicine Geriatric Medicine | DX: U07.1 COVID-19 (principal) | CPT/HCPCS: 87635; 87804; 87807; C9803; U0003; U0005 ==

== ENCOUNTER 2021-07-27 11:56 | Outpatient (CLI) | payer BC, SELFPAY ==
[2021-07-27 12:02] VITALS: BP 191/81; PULSE 63; RESP 16; TEMP 36.9; O2SAT 99; BMI 32.0
[2021-07-27] MEDS: 0.9% Saline Lock 10 ML Syringe IV (12:12)
[2021-07-27 12:57] VITALS: BP 171/85; PULSE 54; RESP 16; TEMP 37; O2SAT 99
[2021-07-27 13:45] VITALS: BP 194/90; PULSE 56; RESP 16; TEMP 37; O2SAT 100
== END 2021-07-27 23:59 | disposition home or self-care (01) ==
LOC: MS3OUT 11:57 → MS3 11:57
PROVIDERS: PCP Family Medicine Geriatric Medicine; Referring Provider Nurse Practitioner Adult Health; Visit Provider Nurse Practitioner Adult Health
DX: Z23 Encounter for immunization (principal); U07.1 COVID-19; E66.9 Obesity, unspecified; Z68.39 Body mass index [BMI] 39.0-39.9, adult
CPT/HCPCS: J7050; M0245; Q0245; A4216

== ENCOUNTER 2021-08-03 12:00 | Outpatient (CLI) | payer BC, SELFPAY ==
--- NOTE | 2021-08-03 12:07 | RAD_ITS ---
STUDY: X-RAY CHEST REASON FOR EXAM: Male, 60 years old. Shortness of breath. TECHNIQUE: PA and lateral views of the chest. COMPARISON: 02/04/2014. FINDINGS: Mildly improved inspiratory effort. No focal mass or infiltrate. There is no demonstrated pleural abnormality. Normal size heart. Normal mediastinum and reji. Normal visualized pulmonary arteries. Normal visualized aortic arch and descending thoracic aorta. Normal visualized thoracic spine. Normal visualized ribs, clavicles, and shoulders. There is no demonstrated abnormality of the visualized soft tissue structures of the upper abdomen. RAD/Chest PA and Lateral IMPRESSION: No acute cardiopulmonary disease. Electronically Signed: Kanu Leiva DO at 17:36 EST Tel [phone], Service support ,
== END 2021-08-03 23:59 | disposition short-term general hospital (02) ==
PROVIDERS: PCP Family Medicine Geriatric Medicine; Referring Provider Family Medicine Geriatric Medicine; Visit Provider Family Medicine Geriatric Medicine
DX: R06.02 Shortness of breath (principal)
CPT/HCPCS: 71046

== ENCOUNTER 2021-08-04 09:57 | Outpatient (CLI) | payer BC, SELFPAY ==
--- NOTE | 2021-08-04 10:00 | CT_ITS ---
STUDY: CTA CHEST REASON FOR EXAM: Male, 60 years old. SOB. Covid positive. RADIATION DOSAGE (If Supplied By Facility): CTDIvol = ( 28.2 ) mGy, DLP = ( 840.12 ) mGycm TECHNIQUE: The examination was performed with the intravenous administration of IV 100mL Isovue-370. Post-processing of the angiographic images was performed, with multiplanar reformation and 3D reconstruction. Individualized dose optimization techniques were used for this CT. COMPARISON: Comparison is made with prior CT of the chest dated 07/18/2014. FINDINGS: Normal enhancement of the main pulmonary artery and right and left pulmonary arteries. Normal enhancement of the bilateral peripheral pulmonary arteries. There is no demonstrated pulmonary embolism. Normal thoracic aorta and visualized great vessels. There is no demonstrated aortic dissection. Normal heart and pericardium. Normal mediastinum. Normal hilar regions. Normal visualized trachea and bronchi. The lungs are well expanded. Normal pulmonary parenchyma. Normal pleura. Normal chest wall structures. Normal osseous structures. Stable 1.7 cm low-attenuation nodule in the midpole of the right kidney. CT/CTA Chest W/WO Contrast IMPRESSION: Normal CTA chest examination, without a demonstrated pulmonary embolism or arterial dissection. Electronically Signed: Gaurang Esteban MD at 11:23 EST , Service support ,
[2021-08-04 10:11] LABS: EGFR FINGERSTICK > 60.0000 mL/min (>60)
== END 2021-08-04 23:59 | disposition short-term general hospital (02) ==
LOC: CT 09:58
PROVIDERS: PCP Family Medicine Geriatric Medicine; Referring Provider Family Medicine Geriatric Medicine; Visit Provider Family Medicine Geriatric Medicine
DX: R06.02 Shortness of breath (principal); Z86.711 Personal history of pulmonary embolism
CPT/HCPCS: 71275; Q9967; A4216

== ENCOUNTER 2021-10-19 14:16 | Outpatient (CLI) | payer BC, SELFPAY ==
[2021-10-19 17:15] LABS: Absolute Lymphocyte Count 1.49 X10^3/uL (0.83-4.51); Absolute Neutrophil Count 2.7 X10^3/uL (2.0-7.7); Basophil# 0.01 X10^3/uL; Basophil% 0.2 % (0-1); Eosinophil# 0.08 X10^3/uL; Eosinophils% 1.6 % (0-5); Hematocrit 41.4 % (40-54); Hemoglobin 12.8 g/dL (13.0-16.5); Lymphocyte # 1.49 X10^3/ul (0.83-4.51); Lymphocyte % 30.2 % (19-41); Mean Corp Hgb Conc 30.9 g/dL (32-36); Mean Corpuscular Hgb 24.8 pg (27.0-32.0); Mean Corpuscular Volume 80.2 fL (80-94); Mean Platelet Vol. 10.3 fl (6.2-12.0); Monocyte# 0.66 X10^3/uL; Monocyte% 13.4 % (0-10); NRBC Flagged by Analyzer 0 % (0-5); Neutrophil # 2.69 X10^3/uL (2.7-7.7); Neutrophil % 54.4 % (47-70); Platelet Count 238 K/mm3 (150-450); RBC Distribution Width CV 13.4 % (11.6-14.6); Red Blood Count 5.16 M/mm3 (4.6-6.2); White Blood Count 4.9 K/mm3 (4.4-11.0)
[2021-10-19 18:21] LABS: ALB/GLOB Ratio 0.8 RATIO (0.9-2.4); AST(SGOT) 27 U/L (15-37); Alanine Aminotransfer ALT/SGPT 76 U/L (16-61); Albumin, Serum 3.4 g/dL (3.2-5.0); Alkaline Phosphatase 109 U/L (45-117); Anion Gap 6 (5-15); BUN 19 mg/dL (7-18); BUN/Creat Ratio 13.9 RATIO (10-20); Calcium,Total 8.5 mg/dL (8.5-10.1); Chloride 106 mmol/L (98-107); Creatinine, Serum 1.37 mg/dL (0.70-1.30); EST Glomerular Filtration Rate 56 mL/min (>60); Est Glom Filt Rate - Afr Amer 68 mL/min (>60); Globulin 4.3 g/dL (2.2-4.2); Glucose 96 mg/dL (74-106); PSA,Total - Annual Screen 0.82 ng/mL (0.00-4.00); Potassium 4.1 mmol/L (3.5-5.1); Protein, Total 7.7 g/dL (6.4-8.2); Sodium Level 138 mmol/L (136-145); Thyroid Stim Hormone (TSH) 1.87 uIU/mL (0.358-3.74)
== END 2021-10-19 23:59 | disposition home or self-care (01) ==
LOC: POLAB3 14:21
PROVIDERS: PCP Family Medicine Geriatric Medicine; Visit Provider Family Medicine Geriatric Medicine
DX: I10 Essential (primary) hypertension (principal); Z12.5 Encounter for screening for malignant neoplasm of prostate
CPT/HCPCS: 36415; 80053; 84153; 84443; 85025; G0103

== ENCOUNTER → 2022-04-19 | Outpatient (CLI) | payer BC, SELFPAY | END | disposition home or self-care (01) | LOC: POLAB3 09:53 | PROVIDERS: PCP Family Medicine Geriatric Medicine; Visit Provider Family Medicine Geriatric Medicine | DX: E55.9 Vitamin D deficiency, unspecified (principal); F52.8 Other sexual dysfunction not due to a substance or known physiological condition; I10 Essential (primary) hypertension | CPT/HCPCS: 80053; 82306; 84403; 84443 ==

== ENCOUNTER → 2022-04-23 | Outpatient (CLI) | payer BC, SELFPAY ==
[2022-04-23 17:02] LABS: Absolute Lymphocyte Count 2.29 X10^3/uL (0.83-4.51); Absolute Neutrophil Count 2.2 X10^3/uL (2.0-7.7); Basophil# 0.01 X10^3/uL; Basophil% 0.2 % (0-1); Eosinophils% 1.9 % (0-5); Hematocrit 39.4 % (40-54); Hemoglobin 12.8 g/dL (13.0-16.5); Lymphocyte # 2.29 X10^3/ul (0.83-4.51); Lymphocyte % 42.8 % (19-41); Mean Corp Hgb Conc 32.5 g/dL (32-36); Mean Corpuscular Volume 80.1 fL (80-94); Monocyte# 0.78 X10^3/uL; Monocyte% 14.6 % (0-10); NRBC Flagged by Analyzer 0 % (0-5); Neutrophil # 2.16 X10^3/uL (2.7-7.7); Neutrophil % 40.3 % (47-70); Platelet Count 218 K/mm3 (150-450); RBC Distribution Width CV 14.2 % (11.6-14.6); RBC Distribution Width SD 41.4 fl (35.1-43.9); Red Blood Count 4.92 M/mm3 (4.6-6.2); White Blood Count 5.4 K/mm3 (4.4-11.0)
[2022-04-23 17:35] LABS: ALB/GLOB Ratio 0.7 RATIO (0.9-2.4); AST(SGOT) 23 U/L (15-37); Alanine Aminotransfer ALT/SGPT 42 U/L (16-61); Albumin, Serum 3.3 g/dL (3.2-5.0); Alkaline Phosphatase 108 U/L (45-117); Anion Gap 6 (5-15); BUN 12 mg/dL (7-18); BUN/Creat Ratio 10.3 RATIO (10-20); Calcium,Total 8.7 mg/dL (8.5-10.1); Chloride 108 mmol/L (98-107); Creatinine, Serum 1.16 mg/dL (0.70-1.30); EST Glomerular Filtration Rate 68 mL/min (>60); Est Glom Filt Rate - Afr Amer 82 mL/min (>60); Globulin 4.5 g/dL (2.2-4.2); Glucose 94 mg/dL (74-106); PSA,Total - Annual Screen 0.76 ng/mL (0.00-4.00); Potassium 3.9 mmol/L (3.5-5.1); Protein, Total 7.8 g/dL (6.4-8.2); Sodium Level 140 mmol/L (136-145); Thyroid Stim Hormone (TSH) 2.16 uIU/mL (0.358-3.74)
[2022-04-24 11:40] LABS: Vitamin D,25 Hydroxy 14.6 ng/mL
== END | disposition home or self-care (01) ==
LOC: POLAB3 12:02
PROVIDERS: PCP Family Medicine Geriatric Medicine; Visit Provider Family Medicine Geriatric Medicine
DX: I10 Essential (primary) hypertension (principal); E55.9 Vitamin D deficiency, unspecified; F52.8 Other sexual dysfunction not due to a substance or known physiological condition; Z12.5 Encounter for screening for malignant neoplasm of prostate
CPT/HCPCS: 36415; 80053; 82306; 84153; 84403; 84443; 85025; G0103

== ENCOUNTER → 2022-05-11 | Outpatient (CLI) | payer BC, SELFPAY ==
--- NOTE | 2022-05-11 07:37 | CT_ITS ---
STUDY: CT SOFT TISSUE NECK WITH CONTRAST REASON FOR EXAM: Male, 61 years old. 3 month history of right-sided swelling and pain. RADIATION DOSAGE (If Supplied By Facility): CTDIvol = ( 18.63 ) mGy, DLP = ( 609.81 ) mGycm TECHNIQUE: The patient was scanned in a multi-detector CT scanner. High resolution transaxial imaging was performed following intravenous administration of IV 100mL Isovue-370. Sagittal and coronal images were reconstructed. Individualized dose optimization techniques were used for this CT. COMPARISON: None. FINDINGS: Normal bilateral parotid glands. Normal bilateral fuse cutter spaces. Normal bilateral parapharyngeal spaces. Normal bilateral carotid spaces. Normal bilateral sublingual and submandibular glands and spaces. Normal visualized nasopharynx. Normal retropharyngeal space. Normal perivertebral space. Normal visualized bilateral faucial tonsils. The visualized tongue, tongue base and oropharynx are normal. The visualized cervical lymph nodes (levels I-) are within normal size limits, and maintain normal morphology. There is no demonstrated solid or cystic mass lesion. There is no abnormal contrast enhancement. Normal epiglottis, bilateral vallecula and hypopharynx. The pre-epiglottic and paraglottic adipose spaces are normal. Normal visualized bilateral piriform sinuses, aryepiglottic folds, vocal cords, and arytenoid-cricoid articulations. Normal subglottic trachea. Normal bilateral lobes of the thyroid gland. Normal visualized pulmonary apices. Normal visualized paranasal sinuses. There is mild degenerative changes of the cervical spine. CT/Soft Tissue Neck WITH Contrast IMPRESSION: Normal enhanced CT examination of the soft tissues of the neck. Electronically Signed: Gaurang Esteban MD at 8:41 EDT ,
== END | disposition home or self-care (01) ==
LOC: CT 07:34
PROVIDERS: PCP Family Medicine Geriatric Medicine; Referring Provider Family Medicine Geriatric Medicine; Visit Provider Family Medicine Geriatric Medicine
DX: R22.1 Localized swelling, mass and lump, neck (principal)
CPT/HCPCS: 70491; Q9967

== ENCOUNTER → 2022-10-22 | Outpatient (CLI) | payer BC, SELFPAY ==
[2022-10-22 17:45] LABS: Absolute Lymphocyte Count 1.58 X10^3/uL (0.83-4.51); Absolute Neutrophil Count 2.6 X10^3/uL (2.0-7.7); Basophil# 0.01 X10^3/uL; Basophil% 0.2 % (0-1); Eosinophil# 0.15 X10^3/uL; Hematocrit 40.6 % (40-54); Hemoglobin 12.5 g/dL (13.0-16.5); Lymphocyte # 1.58 X10^3/ul (0.83-4.51); Lymphocyte % 31.5 % (19-41); Mean Corp Hgb Conc 30.8 g/dL (32-36); Mean Corpuscular Hgb 25.1 pg (27.0-32.0); Mean Corpuscular Volume 81.4 fL (80-94); Mean Platelet Vol. 11.4 fl (6.2-12.0); Monocyte# 0.63 X10^3/uL; Monocyte% 12.5 % (0-10); NRBC Flagged by Analyzer 0 % (0-5); Neutrophil # 2.64 X10^3/uL (2.7-7.7); Neutrophil % 52.6 % (47-70); Platelet Count 222 K/mm3 (150-450); RBC Distribution Width CV 13.8 % (11.6-14.6); RBC Distribution Width SD 40.4 fl (35.1-43.9); Red Blood Count 4.99 M/mm3 (4.6-6.2)
[2022-10-22 17:55] LABS: Vitamin D,25 Hydroxy 18.4 ng/mL
[2022-10-22 18:17] LABS: ALB/GLOB Ratio 0.8 RATIO (0.9-2.4); AST(SGOT) 15 U/L (15-37); Alanine Aminotransfer ALT/SGPT 32 U/L (16-61); Albumin, Serum 3.4 g/dL (3.2-5.0); Alkaline Phosphatase 128 U/L (45-117); Anion Gap 6 (5-15); BUN 14 mg/dL (7-18); BUN/Creat Ratio 10.5 RATIO (10-20); Calcium,Total 8.6 mg/dL (8.5-10.1); Chloride 107 mmol/L (98-107); Creatinine, Serum 1.33 mg/dL (0.70-1.30); EST Glomerular Filtration Rate 58 mL/min (>60); Est Glom Filt Rate - Afr Amer 70 mL/min (>60); Globulin 4.2 g/dL (2.2-4.2); Glucose 111 mg/dL (74-106); Potassium 3.8 mmol/L (3.5-5.1); Protein, Total 7.6 g/dL (6.4-8.2); Sodium Level 138 mmol/L (136-145); Thyroid Stim Hormone (TSH) 1.37 uIU/mL (0.358-3.74)
== END | disposition home or self-care (01) ==
LOC: POLAB3 15:52
PROVIDERS: PCP Family Medicine Geriatric Medicine; Visit Provider Family Medicine Geriatric Medicine
DX: I10 Essential (primary) hypertension (principal); F52.8 Other sexual dysfunction not due to a substance or known physiological condition; Z12.5 Encounter for screening for malignant neoplasm of prostate
CPT/HCPCS: 36415; 80053; 82306; 84403; 84443; 85025

== ENCOUNTER → 2023-01-24 | Outpatient (CLI) | payer OTHER, SELFPAY ==
--- NOTE | 2023-01-24 18:14 | RAD_ITS ---
STUDY: X-RAY CHEST REASON FOR EXAM: Male, 62 years old. CONGESTION OF RESPIRATORY TRACT TECHNIQUE: PA and lateral views of the chest. COMPARISON: August 03, 2021 FINDINGS: The lungs are clear and expanded. There is no demonstrated pleural abnormality. Normal size heart. Normal mediastinum and reji. Normal visualized pulmonary arteries. Normal visualized aortic arch and descending thoracic aorta. Normal visualized thoracic spine. Normal visualized ribs, clavicles, and shoulders. There is no demonstrated abnormality of the visualized soft tissue structures of the upper abdomen. RAD/Chest PA and Lateral IMPRESSION: Normal x-ray examination of the chest. Electronically Signed: Garry Bejarano MD at 19:30 EDT ,
== END | disposition home or self-care (01) ==
LOC: RAD 18:07
PROVIDERS: PCP Family Medicine Geriatric Medicine; Referring Provider Family Medicine Geriatric Medicine; Visit Provider Family Medicine Geriatric Medicine
DX: J98.8 Other specified respiratory disorders (principal); R68.83 Chills (without fever)
CPT/HCPCS: 71046; 87635; 87804; 87807; C9803

== ENCOUNTER → 2023-01-25 | Outpatient (CLI) | payer OTHER, SELFPAY | END | disposition home or self-care (01) | LOC: PSN 12:08 | PROVIDERS: PCP Family Medicine Geriatric Medicine; Referring Provider Family Medicine Geriatric Medicine; Visit Provider Family Medicine Geriatric Medicine | DX: R68.83 Chills (without fever) (principal) ==

== ENCOUNTER → 2023-04-15 | Outpatient (CLI) | payer OTHER, SELFPAY ==
[2023-04-15 16:36] LABS: Absolute Lymphocyte Count 1.49 X10^3/uL (0.83-4.51); Absolute Neutrophil Count 2.4 X10^3/uL (2.0-7.7); Eosinophil# 0.06 X10^3/uL; Eosinophils% 1.4 % (0-5); Hematocrit 41.7 % (40-54); Hemoglobin 13.1 g/dL (13.0-16.5); Lymphocyte # 1.49 X10^3/ul (0.83-4.51); Lymphocyte % 33.6 % (19-41); Mean Corp Hgb Conc 31.4 g/dL (32-36); Mean Corpuscular Hgb 25.6 pg (27.0-32.0); Mean Corpuscular Volume 81.4 fL (80-94); Mean Platelet Vol. 11.4 fl (6.2-12.0); Monocyte# 0.53 X10^3/uL; Monocyte% 11.9 % (0-10); NRBC Flagged by Analyzer 0 % (0-5); Neutrophil # 2.35 X10^3/uL (2.7-7.7); Neutrophil % 52.9 % (47-70); Platelet Count 199 K/mm3 (150-450); RBC Distribution Width CV 13.7 % (11.6-14.6); RBC Distribution Width SD 40.3 fl (35.1-43.9); Red Blood Count 5.12 M/mm3 (4.6-6.2); White Blood Count 4.4 K/mm3 (4.4-11.0)
[2023-04-15 16:55] LABS: ALB/GLOB Ratio 0.8 RATIO (0.9-2.4); AST(SGOT) 16 U/L (15-37); Alanine Aminotransfer ALT/SGPT 38 U/L (16-61); Albumin, Serum 3.5 g/dL (3.2-5.0); Alkaline Phosphatase 123 U/L (45-117); Anion Gap 6 (5-15); BUN 16 mg/dL (7-18); BUN/Creat Ratio 11.8 RATIO (10-20); Calcium,Total 8.5 mg/dL (8.5-10.1); Chloride 107 mmol/L (98-107); Creatinine, Serum 1.36 mg/dL (0.70-1.30); EST Glomerular Filtration Rate 56 mL/min (>60); Est Glom Filt Rate - Afr Amer 68 mL/min (>60); Globulin 4.5 g/dL (2.2-4.2); Glucose 87 mg/dL (74-106); Potassium 3.9 mmol/L (3.5-5.1); Sodium Level 139 mmol/L (136-145)
== END | disposition home or self-care (01) ==
LOC: POLAB3 15:03
PROVIDERS: PCP Family Medicine Geriatric Medicine; Visit Provider Family Medicine Geriatric Medicine
DX: I10 Essential (primary) hypertension (principal)
CPT/HCPCS: 36415; 80053; 84443; 85025

== ENCOUNTER → 2023-08-08 | Outpatient (CLI) | payer OTHER, SELFPAY ==
--- OUTSIDE RECORDS SUMMARY | 2023-08-08 11:34 | XMS RPT_ITS | CCD ---
Author Name Unknown Address [address] [place] [address] Organization [facility] Results Test Name Value Interpretation Reference Range Facil ity Summary Purpose Family History No Family History Records Found Advance Directives No Advanced Directives Records Found Additional Source Comments (unrecognized sect ion and content) No Status Records Found INFORMATION SOURCE (unrecogn ized section and content) FOR RECORDS PERTAINING TO PATIENTS WHO ARE OR HAVE BEEN ENROLLED IN A CHEMICAL DEPENDENCY/SUBSTANCEABUSE PROGRAM, SOME INFORMATION MAY BE OMITTED. This clinical summary was aggregated from multiple sources. Caution should be exercised in using it in the provision of clinical care. This summary normalizes information from multiple sources, and as a consequence, information in this document may materially change the coding, format and clinical context of patient data. In addition, data may be omitted in some cases. CLINICAL DECISIONS SHOULD BE BASED ON THE PRIMARY CLINICAL RECORDS. [employer] provides no warranty or guarantee of the accuracy or completeness of information in this document.
== END | disposition home or self-care (01) ==
PROVIDERS: PCP Family Medicine Geriatric Medicine; Referring Provider Family Medicine Geriatric Medicine; Visit Provider Family Medicine Geriatric Medicine
DX: G47.30 Sleep apnea, unspecified (principal)
CPT/HCPCS: 95806

== ENCOUNTER → 2023-10-28 | Outpatient (CLI) | payer OTHER, SELFPAY | END | disposition home or self-care (01) | LOC: POLAB3 15:18 → LAB.FUTURE 16:06 | PROVIDERS: PCP Family Medicine Geriatric Medicine; Visit Provider Family Medicine Geriatric Medicine | DX: E78.5 Hyperlipidemia, unspecified (principal); I10 Essential (primary) hypertension; Z12.5 Encounter for screening for malignant neoplasm of prostate ==

== ENCOUNTER → 2024-05-27 | Outpatient (CLI) | payer BC, SELFPAY ==
[2024-05-27 17:05] LABS: Absolute Lymphocyte Count 2.09 X10^3/uL (0.83-4.51); Absolute Neutrophil Count 2.3 X10^3/uL (2.0-7.7); Basophil# 0.01 X10^3/uL; Basophil% 0.2 % (0-1); Eosinophil# 0.13 X10^3/uL; Eosinophils% 2.5 % (0-5); Hematocrit 37.9 % (40-54); Hemoglobin 12.1 g/dL (13.0-16.5); Lymphocyte # 2.09 X10^3/ul (0.83-4.51); Lymphocyte % 40.3 % (19-41); Mean Corp Hgb Conc 31.9 g/dL (32-36); Mean Corpuscular Hgb 25.1 pg (27.0-32.0); Mean Corpuscular Volume 78.6 fL (80-94); Mean Platelet Vol. 10.9 fl (6.2-12.0); Monocyte# 0.68 X10^3/uL; Monocyte% 13.1 % (0-10); NRBC Flagged by Analyzer 0 % (0-5); Neutrophil # 2.26 X10^3/uL (2.7-7.7); Neutrophil % 43.7 % (47-70); Platelet Count 235 K/mm3 (150-450); RBC Distribution Width CV 14.4 % (11.6-14.6); RBC Distribution Width SD 41.1 fl (35.1-43.9); Red Blood Count 4.82 M/mm3 (4.6-6.2); White Blood Count 5.2 K/mm3 (4.4-11.0)
[2024-05-27 17:28] LABS: Vitamin D,25 Hydroxy 25.2 ng/mL
[2024-05-27 17:33] LABS: ALB/GLOB Ratio 0.9 RATIO (0.9-2.4); AST(SGOT) 19 U/L (15-37); Alanine Aminotransfer ALT/SGPT 32 U/L (16-61); Albumin, Serum 3.6 g/dL (3.2-5.0); Alkaline Phosphatase 115 U/L (45-117); Anion Gap 6 (5-15); BUN 11 mg/dL (7-18); BUN/Creat Ratio 8.7 RATIO (10-20); Calcium,Total 8.4 mg/dL (8.5-10.1); Chloride 107 mmol/L (98-107); Cholesterol 135 mg/dL (200); Creatinine, Serum 1.26 mg/dL (0.70-1.30); EST Glomerular Filtration Rate 61 mL/min (>60); Est Glom Filt Rate - Afr Amer 74 mL/min (>60); Globulin 4.2 g/dL (2.2-4.2); Glucose 128 mg/dL (74-106); High Density Lipoprotein 48 mg/dL; Potassium 3.7 mmol/L (3.5-5.1); Protein, Total 7.8 g/dL (6.4-8.2); Sodium Level 140 mmol/L (136-145); Triglycerides 175 mg/dL; Very Low Density Lipoprotein 35 mg/dL (5-40)
== END | disposition home or self-care (01) ==
LOC: POLAB3 16:42
PROVIDERS: PCP Family Medicine Geriatric Medicine; Visit Provider Family Medicine Geriatric Medicine
DX: I10 Essential (primary) hypertension (principal); E55.9 Vitamin D deficiency, unspecified; E78.5 Hyperlipidemia, unspecified
CPT/HCPCS: 36415; 80053; 80061; 82306; 84443; 85025

== ENCOUNTER → 2024-11-06 | Outpatient (CLI) | payer BC, SELFPAY ==
[2024-11-06 13:24] LABS: Absolute Lymphocyte Count 1.74 X10^3/uL (0.83-4.51); Absolute Neutrophil Count 1.6 X10^3/uL (2.0-7.7); Basophil# 0.01 X10^3/uL; Basophil% 0.3 % (0-1); Eosinophils% 2.5 % (0-5); Hematocrit 37.8 % (40-54); Hemoglobin 12.2 g/dL (13.0-16.5); Lymphocyte # 1.74 X10^3/ul (0.83-4.51); Lymphocyte % 43.8 % (19-41); Mean Corp Hgb Conc 32.3 g/dL (32-36); Mean Corpuscular Hgb 25.5 pg (27.0-32.0); Mean Corpuscular Volume 78.9 fL (80-94); Monocyte# 0.51 X10^3/uL; Monocyte% 12.8 % (0-10); NRBC Flagged by Analyzer 0 % (0-5); Neutrophil % 40.3 % (47-70); Platelet Count 244 K/mm3 (150-450); RBC Distribution Width CV 13.8 % (11.6-14.6); RBC Distribution Width SD 39.5 fl (35.1-43.9); Red Blood Count 4.79 M/mm3 (4.6-6.2)
[2024-11-06 13:58] LABS: ALB/GLOB Ratio 1.1 RATIO (0.9-2.4); AST(SGOT) 25 U/L (<=37); Alanine Aminotransfer ALT/SGPT 22 U/L (<=46); Alkaline Phosphatase 121 U/L (40-129); Anion Gap 10 (5-15); BUN 15 mg/dL (4-19); BUN/Creat Ratio 12.3 RATIO (10-20); Chloride 104 mmol/L (98-108); Creatinine, Serum 1.23 mg/dL (0.70-1.20); EST Glomerular Filtration Rate 65 (>60); Globulin 3.7 g/dL (2.2-4.2); Glucose 107 mg/dL (70-99); PSA,Total - Annual Screen 0.64 ng/mL (0.02-4.00); Protein, Total 7.7 g/dL (5.9-8.4); Sodium Level 137 mmol/L (133-145); Total Bilirubin 0.49 mg/dL (0.00-1.30); Vitamin D,25 Hydroxy 13.9 ng/mL (30-100)
== END | disposition home or self-care (01) ==
PROVIDERS: PCP Family Medicine Geriatric Medicine; Referring Provider Family Medicine Geriatric Medicine; Visit Provider Family Medicine Geriatric Medicine
DX: I10 Essential (primary) hypertension (principal); E55.9 Vitamin D deficiency, unspecified; Z12.5 Encounter for screening for malignant neoplasm of prostate
CPT/HCPCS: 36415; 80053; 82306; 84153; 84443; 85025; G0103

== ENCOUNTER → 2025-03-23 | Outpatient (CLI) | payer BC, SELFPAY ==
--- NOTE | 2025-03-23 15:53 | RAD_ITS ---
PROCEDURE: THORACIC SPINE 3 VIEWS 03/23/2025 REASON FOR EXAM: MUSCLE SPASM OF BACK TECHNIQUE: Procedure Code: RADSPT Modality: DX Procedure: THORACIC SPINE 3 VIEWS COMPARISON: None FINDINGS: Vertebrae: No fracture. Bone mineralization is preserved Discs: Mild multilevel degenerative disc disease of the lower cervical spine and midthoracic spine Alignment: Very gentle scoliosis. No kyphosis or subluxation. Other: Visible lung parenchyma and soft tissues appear normal RAD/Thoracic Spine 3 Views IMPRESSION: Mild multilevel degenerative disc disease. No fracture. Reading Location: [id number]
[2025-03-23 16:06] LABS: Hematocrit 40.2 % (40-54); Hemoglobin 13.6 g/dL (13.0-16.5); Immature Granulocytes Count 0.010 X10^3/uL (0.0-0.0); Mean Corp Hgb Conc 33.8 g/dL (32-36); Mean Corpuscular Volume 79.3 fL (80-94); Mean Platelet Vol. 9.8 fl (6.2-12.0); NRBC Flagged by Analyzer 0 % (0-5); Platelet Count 265 K/mm3 (150-450); RBC Distribution Width CV 13.9 % (11.6-14.6); RBC Distribution Width SD 40.0 fl (35.1-43.9); Red Blood Count 5.07 M/mm3 (4.6-6.2); White Blood Count 4.6 K/mm3 (4.4-11.0)
[2025-03-23 17:04] LABS: CPK Total, Creatine Kinase 261 U/L (24-195); Troponin T High Sensitivity 8 ng/L (<=22)
[2025-03-23 17:47] LABS: Amylase 79 U/L (28-100); Lipase 28 U/L (13-75)
[2025-03-23 17:55] LABS: AST(SGOT) 25 U/L (<=37); Alanine Aminotransfer ALT/SGPT 28 U/L (<=46); Albumin, Serum 4.1 g/dL (3.4-4.8); Alkaline Phosphatase 108 U/L (40-129); Anion Gap 11 (5-15); BUN 17 mg/dL (4-19); BUN/Creat Ratio 13.2 RATIO (10-20); Calcium,Total 9.3 mg/dL (7.6-11.0); Carbon Dioxide 22.9 mmol/L (21.0-32.0); Chloride 104 mmol/L (98-108); Globulin 3.8 g/dL (2.2-4.2); Glucose 99 mg/dL (70-99); Potassium 4.3 mmol/L (3.3-5.1)
[2025-03-25 04:07] LABS: Myoglobin, Serum 52 ng/mL (28-72)
== END | disposition home or self-care (01) ==
PROVIDERS: PCP Family Medicine Geriatric Medicine; Referring Provider Family Medicine Geriatric Medicine; Visit Provider Family Medicine Geriatric Medicine
DX: I10 Essential (primary) hypertension (principal); R74.8 Abnormal levels of other serum enzymes; M62.830 Muscle spasm of back
CPT/HCPCS: 36415; 72072; 80053; 82150; 82550; 83690; 83874; 84484; 85025

== ENCOUNTER → 2025-04-09 | Outpatient (CLI) | payer BC, SELFPAY ==
--- NOTE | 2025-04-09 14:16 | CT_ITS ---
PROCEDURE: CHEST WITH CONTRAST 04/09/2025 REASON FOR EXAM: RADICULOPATHY, THORACIC REGION TECHNIQUE: Procedure Code: CTCHW Modality: CT Procedure: CHEST WITH CONTRAST Coronal and Sagittal reconstruction series were provided. CONTRAST: OMNIPAQUE 350 VOLUME: 100 mL One or more dose reduction techniques were used (e.g., Automated exposure control, adjustment of the mA and/or kV according to patient size, use of iterative reconstruction technique). RADIATION DOSE SUMMARY: CTDlvol: 26.38 mGy DLP: 1145 mGycm COMPARISON: Radiographs of the thoracic spine on 03/23/2025. Radiographs of the chest on 01/24/2023. CT scan of the chest on 08/04/2021. FINDINGS: Unchanged 1.6 cm right renal simple cyst. Unchanged 1.2 cm left renal simple cyst. Unchanged complex cystic lesion of the lower pole of the left kidney measuring 2.7 cm. Unchanged dilated left renal pelvis. Mild bilateral basilar atelectatic pulmonary changes. Mild diffuse spondylosis. Normal enhancement of the main pulmonary artery and right and left pulmonary arteries. Normal enhancement of the bilateral peripheral pulmonary arteries. There is no demonstrated pulmonary embolism. Normal thoracic aorta and visualized great vessels. There is no demonstrated aortic dissection. Normal heart and pericardium. Normal mediastinum. Normal hilar regions. Normal visualized trachea and bronchi. Normal pleura. Moderate amount of fecal residue in the large bowels. CT/Chest WITH Contrast IMPRESSION: Coronary artery calcification (CAC) is is present No demonstrated pulmonary embolism or arterial dissection. Unchanged 1.6 cm right renal simple cyst. Unchanged 1.2 cm left renal simple cyst. Unchanged complex cystic lesion of the lower pole of the left kidney measuring 2.7 cm. Unchanged dilated left renal pelvis. Mild bilateral basilar atelectatic pulmonary changes. Mild diffuse spondylosis. Reading Location[facility] [id number]
== END | disposition home or self-care (01) ==
LOC: CT 14:14
PROVIDERS: PCP Family Medicine Geriatric Medicine; Referring Provider Family Medicine Geriatric Medicine; Visit Provider Family Medicine Geriatric Medicine
DX: M54.14 Radiculopathy, thoracic region (principal)
CPT/HCPCS: 71260; Q9967; A4216

== ENCOUNTER → 2025-05-14 | Outpatient (CLI) | payer BC, SELFPAY ==
--- NOTE | 2025-05-14 10:25 | MRI_ITS ---
PROCEDURE: MRI ABD WITH AND W/O CONTRAST 05/14/2025 REASON FOR EXAM: COMPLEX RENAL CYST TECHNIQUE: Procedure Code: MRIABDWW Modality: MR Procedure: MRI ABD WITH AND W/O CONTRAST Multiplanar and multisequence images were obtained of the abdomen, before and after IV gadolinium infusion. CONTRAST: Clariscan VOLUME: 23 mL COMPARISON: CT abdomen pelvis June 2018. FINDINGS: Motion degraded exam. Multiple renal cysts bilaterally, largest 2.5 cm on the right and 2.1 cm on the left. 1 cm T2 hypointense nonenhancing lesion at the lower left renal pole. The lesion exhibits intrinsic T1 hyperintensity and consistent with a benign hemorrhagic/proteinaceous cyst. Two 7-8 mm hemorrhagic/proteinaceous cysts in the right kidney are also noted with same characteristics. The other cysts are all simple in appearance. There is no enhancing lesion or suspicious cystic lesion identified. Left extrarenal pelvis, no significance. No hydronephrosis. Liver is unremarkable. Gallbladder and bile ducts are unremarkable. Pancreas and spleen are normal. Normal adrenal glands. Moderate colonic stool suggesting constipation. GI tract is otherwise unremarkable. Normal abdominal aorta and IVC. No ascites. Urinary bladder is unremarkable. No pelvic free fluid or adenopathy. No marrow lesions. MRI/MRI Abd WITH and W/O Contrast IMPRESSION: Bilateral renal cysts, a combination of hemorrhagic/proteinaceous and simple cy sts. All appear benign. There is no evidence of renal neoplasia. Reading Location: [facility]
--- OUTSIDE RECORDS SUMMARY | 2025-05-14 10:49 | XMS RPT_ITS | CCD ---
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 Doron Castellanos Chi Primary Care Provider Cookie Rivers Attending Provider Unavailable Idalmis DIAZ, Dr. Doron Cisneros Primary Care Physician Dr. Doron Castellanos MD, Chi Attending Physician Dr. Doron Castellanos MD, Chi Referring Provider Emma Gray Attending Physician Idalmis, Doron Chi Primary Care Unavailable Idalmis, Doron Chi Attending Unavailable Idalmis, Doron Chi Referring Unavailable Idalmis, Doron Chi Primary Care Unavailable Idalmis, Doron Chi Attending Unavailable Emma Conway Attending Unavailable Idalmis, Doron Chi Referring Unavailable Ministerio Antunez Attending Unavailable Idalmis, Doron Chi Referring Unavailable Idalmis, Doron Chi Primary Care Unavailable Jame Fuentes Attending Unavailable Idalmis, Doron Chi Referring Unavailable Idalmis, Doron Chi Primary Care Unavailable Idalmis, Doron Chi Primary Care Unavailable Idalmis, Doron Chi Attending Unavailable Idalmis, Doron Chi Referring Unavailable Idalmis, Doron Chi Primary Care Unavailable Idalmis, Doron Chi Attending Unavailable Idalmis, Doron Chi Referring Unavailable Allergies Allergy Classification Reported Allergen(s) Allergy Type Date of Onset Reaction(s) Facility (9 sources) Doxycycline Drug Allergy 10-09-2021 [facility] (10 sources) Doxycycline; Translations: [doxycycline calcium] Drug Allergy 10-09-2021 [place] (10 sources) Doxycycline; Translations: [doxycycline hyclate] Drug Allergy 10-09-2021 [place] (10 sources) Doxycycline; Translations: [doxycycline monohydrate] Drug Allergy 10-09-2021 [place] (1 source) Doxycycline Drug Allergy 05-07-2025 [facility] Repository Medications Current Medications Medication Drug Class(es) Dates Sig (Normalized) Sig (Original) [id number] 200 actuat albuterol 0.09 mg/actuat metered dose inhaler (18 sources) beta2-Adrenergic Agonist Start: 02-18-2019 Start: 02-18-2019 take 1 puff(s) by in halation every six hours as needed Albuterol Sulfate Active 1 - 2 PUFF INHALATION EVERY 6 HOURS NEEDED February 18, 2019 12:00am Start: 02-18-2019 End: 04-09-2025 take 2.5 mg by inhalation every six hours as needed for wheezing Albuterol Sulfate 2.5 MG/3 ML solution for nebulization Discontinued 2.5 mg INHALATION EVERY 6 HOURS WHILE AWAKE as needed for Sob &/Or Wheezing February 18, 2019 12:00am April 09, 2025 9:52am amLODIPine 10 mg oral tablet (18 sources) Dihydropyridine Calcium Channel Mayra Start: 01-31-2014 End: 08-31-2021 take 1 tablet by mouth once daily atorvastatin 80 mg oral tablet (18 sources) HMG-CoA Reductase Inhibitor Start: 01-31-2014 End: 08-31-2021 take 1 tablet by mouth once daily cholecalciferol 0.025 mg oral capsule (2 sources) Vitamin D Start: 04-09-2025 take 1 capsule by mouth once daily Start: 04-09-2025 take 1 capsule by mouth once d aily hydrOXYzine hydrochloride 50 mg oral tablet (20 sources) Antihistamine Start: 10-09-2021 take 2 tablets by mouth twice daily Start: 10-09-2021 take 100 mg by mouth twice daily Hydroxyzine Hcl Active 100 MG PO TWICE A DAY October 09, 2021 11:36am Start: 08-31-2021 End: 10-09-2021 take 1 tablet by mouth twice daily Hydroxyzine Hcl 50 mg tablet Discontinued 50 mg PO TWICE A DAY September 01, 2021 2:33pm October 09, 2021 11:36am Start: 07-18-2014 End: 08-31-2021 take 2 tablets by mouth once daily Hydroxyzine Hcl 25 MG tablet Discontinued 50 mg PO DAILY July 18, 2014 1:00am August 31, 2021 8:10pm skin allergies Start: 07-18-2014 End: 08-31-2021 take 50 mg by mouth once daily Hydroxyzine Hcl Discont inued 50 MG PO DAILY July 18, 2014 1:00am August 31, 2021 8:10pm metoprolol tartrate 100 mg oral tablet (9 sources) beta-Adrenergic Mayra Start: 07-18-2014 take 1 tablet by mouth once daily potassium chloride 10 meq extended release oral tablet (9 sources) Start: 09-01-2021 Completed/Discontinued Medications Medication Drug Class(es) Dates Sig (Normalized) Sig (Original) acetaminophen 325 mg / HYDROcodone bitartrate 5 mg oral tablet (9 sources) Opioid Agonist Start: 07-07-2018 End: 07-09-2018 Hydrocodone-Acetamino phen 1 TABLET tablet Discontinued 1 {tbl} PO EVERY 4 HOURS NEEDED as needed for Pain 10 2 July 07, 2018 1:00am July 08, 2018 1:00am July 09, 2018 1:07am Acute pyelonephritis Acute pyelonephritis Start: 07-07-2018 End: 07-09-2018 take 1 tablet by mouth every four hours as needed Hydrocodone-Acetaminophen Discontinued 1 TABLET PO EVERY 4 HOURS NEEDED 10 2 July 07, 2018 1:00am July 09, 2018 1:07am chlorthalidone 25 mg oral tablet (9 sources) Thiazide-like Diuretic Start: 09-01-2021 End: 04-09-2025 take 1 tablet by mouth once daily Chlorthalidone 25 mg tablet Discontinued 25 mg PO DAILY September 01, 2021 1:00am April 09, 2025 9:52am ondansetron 8 mg oral tablet (9 sources) Serotonin-3 Receptor Antagonist Start: 07-07-2018 End: 01-29-2019 take 1 tablet by mouth every eight hours as needed for nausea Ondansetron Hcl 8 MG tablet Discontinued 8 mg PO EVERY 8 HOURS NEEDED as needed for Nausea 12 July 07, 2018 1:00am January 29, 2019 3:53pm sildenafil 100 mg oral tablet (9 sources) Phosphodiesterase 5 Inhibitor Start: 09-01-2021 End: 04-09-2025 Sildenafil 100 mg tablet Discontinued 100 mg PO DAILY as needed September 01, 2021 1:00am April 09, 2025 9:52am administer 30 minutes to 4 hours before activity sulfamethoxazole 800 mg / trimethoprim 160 mg oral tablet (9 sources) Dihydrofolate Reductase Inhibitor Antibacterial, Sulfonamide Antimicrobial Start: 07-07-2018 End: 01-29-2019 Sulfamethoxazole-T rimethoprim 1 TABLET tablet Discontinued 1 {tbl} PO TWICE A DAY July 07, 2018 1:00am January 29, 2019 3:53pm Start: 07-07-2018 End: 01-29-2019 take 1 tablet by mouth twice daily Sulfamethoxazole-Trimethoprim Discontinu ed 1 TABLET PO TWICE A DAY July 07, 2018 1:00am January 29, 2019 3:53pm traMADol hydrochloride 50 mg oral tablet (9 sources) Opioid Agonist Start: 02-27-2019 End: 09-01-2021 take 1-2 tablets by mouth every eight hours as needed for pain Tramadol 50 mg tablet Discontinued 0 PO Q8H as needed for pain 30 February 27, 2019 12:00am September 01, 2021 2:34pm 1-2 tabs PO Q8H PRN; Problems Active Problems Problem Classification Problem Date Documented Date Episodic/Chronic Conduction disorders (11 sources) First degree atrioventricular block; Translations: [Atrioventricular block, first degree] Onset: 5 10-09-2021 Chronic Coronary atherosclerosis and other heart disease (1 source) Atherosclerotic heart disease of [place] coronary artery without angina pectoris; Translations: [Atherosclerotic heart disease of [place] coronary artery without angina pectoris] Onset: 5 Chronic Disorders of lipid metabolism (10 sources) Hyperlipidemia; Translations: [Hyperlipidemia, unspecified] Onset: 5 08-31-2021 Chronic Essential hypertension (10 sources) Essential hypertension; Translations: [Essential (primary) hypertension] Onset: 5 08-31-2021 Chronic Headache; including migraine (9 sources) Headache; Translations: [Headache] 07-08-2018 Episodic Nonspecific chest pain (1 source) Other chest pain; Translations: [Other chest pain] Onset: 5 Episodic Other connective tissue disease (9 sources) Pain in left arm; Translations: [Pain in left arm] 07-08-2018 Episodic Other nutritional; endocrine; and metabolic disorders (9 sources) Obesity; Translations: [Obesity, unspecified] 08-31-2021 Chronic Other screening for suspected conditions (not mental disorders or infectious disease) (13 sources) Electrocardiogram abnormal; Translations: [Abnormal electrocardiogram [ECG] [EKG]] Onset: 2 10-09-2021 Episodic Comment on above: previous anterosepta l infarct , first degree AV block Spondylosis; intervertebral disc disorders; other back problems (1 source) Radiculopathy, thoracic region; Translations: [Radiculopathy, thoracic region] Onset: 5 Episodic Urinary tract infections (9 sources) Acute pyelonephritis; Translations: [Acute pyelonephritis] 07-08-2018 Episodic Past or Other Problems Problem Classification Problem Date Documented Da te Episodic/Chronic Viral infection (9 sources) Disease caused by 2019-nCoV; Translations: [COVID-19] Onset: 07-25-2021 08-31-2021 Episodic Results Test Name Value Interpretation Reference Range Facility MR/PATJay 05-07-2025 MR/PAT.REAGAN [facility] Medical Records Department [address] [place] [address] PAT - Anesthesia 05/07/25 1412 MR#: [id number] Acct: [id number] Name: RANDALL VILLATORO Rep #: [id number] : 1960 64 From: Javier Wilson MD PCP: Dr. 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 When Was Last Pacemaker Check QUESTION #4 FULL TEXT: You/Your Family Experience fever (hyperthermia) with Anesthesia Last Oral Intake Last Oral intake: Last Oral Intake NPO since Meds taken in AM with sips of water? Meds patient instructed to take am of surgery PONV PONV - assistant federal public defender: PONV - assistant federal public defender Female No 05/07/25 13:40 HX of Motion Sickness No 05/07/25 13:40 HX of N/V After Surgery No 05/07/25 13:40 Non-Smoker Yes 05/07/25 13:40 Duration of Surgery greater No 05/07/25 13:40 than 60 minutes Number of Risk Factors 1 05/07/25 13:40 PONV Score Low Risk 05/07/25 13:40 Height Weight Height Weight: Anesthesia: Height Weight Height 5 ft 9 in 05/06/25 14:10 Respiratory Assessment Respiratory Assessment - assistant federal public defender: Respiratory Tract Infection Hx - assistant federal public defender Hx Respiratory Tract Infection No 05/07/25 13:40 STOP Sleep Apnea STOP Sleep Apnea - assistant federal public defender: STOP Sleep Apnea - assistant federal public defender Hx Hypertension Yes: NOT WELL CONTROLLED ON 05/07/25 13:40 MEDS Hx Sleep Apnea No 05/07/25 13:40 CPAP No 02/25/19 14:15 BIPAP Do you snore loudly (louder No 05/07/25 13:40 than talking or can be heard Do you often feel tired/ No 05/07/25 13:40 fatigued/ sleepy during daytime? Has anyone observed you stop No 05/07/25 13:40 breathing during sleep? STOP Results Negative 05/07/25 13:40 QUESTION #5 FULL TEXT : Do you snore loudly (louder than talking or can be heard through closed doors)? 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 Specify any problems Hx of Preganancy in last 3 N/A 05/07/25 13:40 Months Nurse Filling Out Transfusion MGRIFFITH 05/07/25 13:40 Questions: Date: 05/07/25 05/07/25 13:40 Time: 13:43 05/07/25 13:40 Patient unable to answer at this time (ie. confused, unrespo /Reproducti on History /Reproducti ve History - assistant federal public defender: /Reproducti ve Hx- assistant federal public defender Hx Now Gestational Age (in weeks): EDC: Hx Hx Para Hx Section [facility] Medical History (Updated 05/07/25 @ 13:50 by Bonnie Valdez) Wears glasses High cholesterol Gastric reflux Non-smoker Leg cramps Hypertension Cardiology follow-up encounter Chest pain History of pulmonary embolus (PE) Rotator cuff tear Fibromyalgia Asthma Chronic kidney disease, stage 3a Erectile dysfunction GERD (gastroesophageal reflux disease) Complex renal cyst Screening for colon cancer Carpal tunnel syndrome Salmonella food poisoning First degree AV block Hyperlipidemia Abnormal electrocardiogram (07/21/21) Obesity Essential hypertension COVID-19 (07/25/21) Home Medications ???Medication ???Instructions ???Recorded ???Last Taken ???Type amlodipine 10 mg tablet 10 mg PO QHS 08/31/21 Unknown Hist ory atorvastatin 80 mg tablet 80 mg PO QHS 08/31/21 Unknown Hist ory hydroxyzine HCl 50 mg tablet 100 mg PO BID 10/09/21 Unknown His tory albuterol sulfate 90 mcg/actuation 2 puff inhalation Q4H Sob /Or 1 0 (more content not included)... Normal [facility] Cardiology Visit Reporton Cardiology Visit Report [facility] [place] [address] OFFICE VISIT Date of Service: 05/06/25 MR#: [id number] Acct: [id number] Name: RANDALL VILLATORO Rep #: [id number] : 1960 Provider: Dr. Ministerio moulton DO Age/Sex: 64/M Location: [facility] [place] Status: Signed HPI HPI History of Present Illness Details: Patient is a 64-year-old male with past medical history of hypertension, hyperlipidemia, CKD stage III A, history of pulmonary embolism. Patient is referred to cardiology today for management of coronary artery calcium seen on a noncardiac CT scan. Home medications include: Chlorthalidone 25 mg daily, atorvastatin 80 mg daily, amlodipine 10 mg daily, metoprolol succinate 100 mg daily. Patient today has no acute complaints. He he complains of chest discomfort that has been ongoing for at least 3 years. It it occurs mostly at rest, and is not tied to exertion. He admits that it is a cramping type sensation under his nipple line radiating posteriorly along the ribs. 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 He is usually sitting down or resting when he begins to feel the pain. He has no symptoms while exerting himself. Pain lasts from anywhere from 5 to 30 minutes. It happens infrequently and is random. He admits he had some of this discomfort when being positioned for his EKG, and when they put the leads over this area. He has no worsening exertional symptoms or intolerance. Intake Vital Signs 07/27/21 12:02 05/06/25 14:10 05/06/25 14:23 05/06/25 14:23 Height 5 ft 9 in 5 ft 9 in Weight: 277 lb BMI 40.8 BP 181/94 H 153/76 H 155/77 H Blood Pressure Location Lt brachial Rt brachial Rt brachial Position Sitting Sitting Sitting Respiration 18 18 Pulse 60 Pulse Source NIBP Intake Visit Reasons: CORONARY ARTERY CALCIFICATIONS (IDALMIS) Adhesive Bandage Making Operator Required: No Is patient in pain?: No Allergies doxycycline (From Vibramycin) Allergy (Severe, Verified 04/30/25 11:25) Rash doxycycline calcium (From Vibramycin) Adverse Reaction (Verified 04/30/25 11:25) Hives doxycycline hyclate (From Vibramycin) Adverse Reaction (Verified 04/30/25 11:25) Hives doxycycline monohydrate (From Vibramycin) Adverse Reaction (Verified 04/30/25 11:25) Hives Medications ???Medication ???Instructions ???Recorded ???Confirmed ???Type amlodipine 10 mg tablet 10 mg PO DAILY 08/31/21 05/06/25 H istory atorvastatin 80 mg tablet 80 mg PO DAILY 08/31/21 05/06/25 H istory hydroxyzine HCl 50 mg tablet 100 mg PO BID 10/09/21 05/06/25 Hi story albuterol sulfate 90 mcg/actuation 2 puff inhalation Q4H Sob /Or 1 05/06/25 History aerosol inhaler Wheezing chlorthalidone 25 mg tablet 25 mg PO QDAY 04/30/25 05/06/25 Hi story cholecalciferol (vitamin D3) 25 25 mcg PO DAILY 04/30/25 05/06/25 History mcg (1,000 unit) tablet duloxetine 20 mg capsule,delayed 20 mg PO QDAY 04/30/25 05/06/25 Hi story release fluticasone fur. 200 mcg-umeclid 1 ea inhalation DAILY 04/30/25 History 62.5 mcg-vilant 25 mcg inhalat.powder (Trelegy Ellipta) metoprolol succinate 100 mg 100 mg PO DAILY 04/30/25 05/06/25 History tablet,extended release 24 hr sildenafil 100 mg tablet (Viagra) 100 mg PO QDAY PRN 04/30/2505/06 History vonoprazan 20 mg tablet (Voquezna) 20 mg PO QDAY 04/30/25 05/06/25 History polyethylene glycol 3350 17 gram 17 g PO DAILY PRN 05/06/25 5 History oral powder packet (Purelax) Ejection fraction %: 55 Have you fallen in the past year?: No PFSH Medical History (Updated 05/06/25 @ 15:[address] Ministerio Antunez, DO) First degree AV block Essential hypertension Hyperlipidemia Abnormal electrocardiogram (07/21/21) Asthma Chronic kidney disease, stage 3a Rotator cuff tear History of pulmonary embolus (PE) Fibromyalgia Erectile dysfunction GERD (gastroesophageal reflux disease) COVID-19 (07/25/21) Screening for colon cancer Complex renal cyst Carpal tunnel syndrome Salmonella food poisoning Obesity Surgical History (Updated 04/30/25 @ 11:44 by Zenia Nichole) Testicular torsion History of carpal tunnel surgery History of appendectomy History of tonsillectomy H/O left knee surgery Family History (Updated 04/30/25 @ 11:50 by Zenia Nichole) Mother Liver disease Arthritis Hypertension CVA (cerebral vascular accident) Father Kidney disease History of blood clotting disorder Heart disease Bleeding disorder Hypertension Sister Bleeding disorder Hypertension Asthma Brother Liver disease Kidney disease High cholesterol Anxiety Heart disease Respiratory disease Hypertensi (more content not included)... Normal [facility] Chest WITH Contraston 2024 Chest WITH Contrast [facility] Imaging Services [address] [place], [place] [id number] Chest WITH Contrast MR#: [id number] Acct: [id number] Name: RANDALL VILLATORO Rep #: [id number] : 1960 M 64 From: Washington goodwin MD PCP: Dr. Doron Castellanos MD Status: REG CLI Study: Chest WITH Contrast Date of Exam: 04/09/25 Exam# [id number] Ordering Dr: Doron Castellanos MD PROCEDURE: CHEST WITH CONTRAST 04/09/2025 REASON FOR EXAM: RADICULOPATHY, THORACIC REGION TECHNIQUE: Procedure Code: CTCHW Modality: CT Procedure: CHEST WITH CONTRAST Coronal and Sagittal reconstruction series were provided. CONTRAST: OMNIPAQUE 350 VOLUME: 100 mL One or more dose reduction techniques were used (e.g., Automated exposure control, adjustment of the mA and/or kV according to patient size, use of iterative reconstruction technique). RADIATION DOSE SUMMARY: CTDlvol: 26.38 mGy DLP: 1145 mGycm COMPARISON: Radiographs of the thoracic spine on 03/23/2025. Radiographs of the chest on 01/24/2023. CT scan of the chest on 08/04/2021. FINDINGS: Unchanged 1.6 cm right renal simple cyst. Unchanged 1.2 cm left renal simple cyst. Unchanged complex cystic lesion of the lower pole of the left kidney measuring 2.7 cm. Unchanged dilated left renal pelvis. Mild bilateral basilar atelectatic pulmonary changes. Mild diffuse spondylosis. Normal enhancement of the main pulmonary artery and right and left pulmonary arteries. Normal enhancement of the bilateral peripheral pulmonary arteries. There is no demonstrated pulmonary embolism. Normal thoracic aorta and visualized great vessels. There is no demonstrated aortic dissection. Normal heart and pericardium. Normal mediastinum. Normal hilar regions. Normal visualized trachea and bronchi. Normal pleura. Moderate amount of fecal residue in the large bowels. CT/Chest WITH Contrast IMPRESSION: Coronary artery calcification (CAC) is is present No demonstrated pulmonary embolism or arterial dissection. Unchanged 1.6 cm right renal simple cyst. Unchanged 1.2 cm left renal simple cyst. Unchanged complex cystic lesion of the lower pole of the left kidney measuring 2.7 cm. Unchanged dilated left renal pelvis. Mild bilateral basilar atelectatic pulmonary changes. Mild diffuse spondylosis. Reading Location: [place] [address] CC: Dr. Doron Castellanos MD Forensic Structural Engineer: Signed Normal [facility] Gastroenterology Visit Repor ton 04-09-2025 Gastroenterology Visit Report [facility] Gastroenterology [address] [place] [address] OFFICE VISIT Date of Service: 04/09/25 MR#: [id number] Acct: [id number] Name: RANDALL VILLATORO Rep #: [id number] : 1960 Provider: QUIANA Long Age/Sex: 64/M Location[place] [facility] Status: Signed Intake Vital Signs 07/27/21 12:02 Height 5 ft 9 in Intake Visit Reasons: pre colonoscopy Chief Complaint: Screening colonoscopy Allergies doxycycline (From Vibramycin) Allergy (Severe, Verified 04/09/25 09:50) Rash doxycycline calcium (From Vibramycin) Adverse Reaction (Verified 04/09/25 09:50) Hives doxycycline hyclate (From Vibramycin) Adverse Reaction (Verified 04/09/25 09:50) Hives doxycycline monohydrate (From Vibramycin) Adverse Reaction (Verified 04/09/25 09:50) Hives Medications ???Medication ???Instructions ???Recorded ???Confirmed ???Type metoprolol tartrate 100 mg tablet 100 mg PO DAILY bp 07/18/1404/09 History albuterol sulfate 90 mcg/actuation 1 - 2 puff inhalation Q6H PRN VA N 02/18/19 04/09/25 History aerosol inhaler Sob /Or Wheezing amlodipine 10 mg tablet 10 mg PO DAILY 08/31/21 04/09/25 H istory atorvastatin 80 mg tablet 80 mg PO DAILY 08/31/21 04/09/25 H istory potassium chloride 10 mEq 10 meq PO DAILY 09/01/21 04/09/25 History tablet,extended release (Klor-Con) hydroxyzine HCl 50 mg tablet 100 mg PO BID 10/09/21 04/09/25 Hi story cholecalciferol (vitamin D3) 25 25 mcg PO QDAY 04/09/25 04/09/25 H istory mcg (1,000 unit) capsule Have you fallen in the past year?: No PFSH Medical History Carpal tunnel syndrome Salmonella food poisoning Testicular torsion Hyperlipidemia Abnormal electrocardiogram (07/21/21) Obesity Essential hypertension Surgical History History of carpal tunnel surgery History of appendectomy History of tonsillectomy H/O left knee surgery Social History Smoking Status: Never smoker HPI HPI Chief Complaint: Screening colonoscopy Details: RANDALL VILLATORO, is a 64 M who presents to the office today for establishment. Patient referred from his primary care provider for screening colonoscopy. Patient's last colonoscopy was over 20 years ago he was admitted to the hospital for Salmonella infection. Patient has daily bowel movements that are normal. Patient denies any GI symptoms today including abdominal pain, constipation, diarrhea or blood in his stool. Patient denies family history of colon cancer. ROS Const Constitutional: No fatigue, fever(s) or weight change ENT ENT: No difficulty swallowing Gastro GI: Positive for nausea/dyspepsia; No abdominal pain, belching, bloating, change in bowel habits, change in stool character, coffee ground emesis, constipation, cramping, diarrhea, heartburn, difficulty swallowing, feeling full early, excessive flatus, incontinent of stools, Vomiting blood/hematemesis, Blood in stool, loose stools, Black,tarry stools, pain with swallowing, vomiting or other Musc Musculoskeletal: Positive for joint pain, back pain and stiffness Skin Skin: No yellowing of the eye or itchy eyes Psych Psychiatric: No anxiety and No depression Endo Endocrine: No fatigue or weight change Aller/Imm Allergy/Immunologic: No itchy eyes Nathan/Lymp Hematologic/Lymphati c: No easy bleeding or easy bruising Exam Const General: cooperative, healthy appearing and comfortable Nutritional Appearance: overweight Orientation: alert [facility] Head: normal to inspection Eyes General: appearance normal, both eyes and all related structures Neck Neck: normal visual inspection Chest Chest palpation inspection: normal inspection of the chest Resp Effort Inspection: normal respiratory effort Cardio Rate: regular rate Rhythm: regular rhythm GI Inspection: normal to inspection Auscultation: normal bowel sounds Palpation: soft and nontender Assessment and Plan Assessment and Plan (1) Screening for colon cancer: Status: Acute Plan: Randall is a 64-year-old male patient here today for screening colonoscopy. Patient's last colonoscopy was over 20 years ago while he was in the hospital for Salmonella infection. Patient denies any GI symptoms at this time. He denies history of colonic polyps. Patient also denies family history of colon cancer. Patient will be scheduled for colonoscopy. - Colonoscopy - Follow-up as needed Coding Level of Care Code Off vis,new,level 3 Diagnoses Screening for colon cancer Z12.11 Clinical Quality Measures Falls Risk Screening/Assistive Devices Have you fallen in the past year?: No 04/09/25 1032 Date (more content not included)... Normal [facility] Myoglobin, Serumon 5 Myoglobin, Ser 52 ng/mL Normal -72 [facility] Comment on above: Result Comment: Perf ormed at: - [facility] [address] [id number] [employer] Presenter: Jerzy Wright PhD, Phone: [phone] Performed By: #### L 501.4021, L501.2400, L100.0100, L501.3620, L500.4050, L3600.5100, L501.2450 ####[facility] [address] [place], [address] Absolute lymphocyte countOrd ered By: Doron Castellanos on 03-23-2025 Lymphocytes Auto (Unsp spec) [#/Vol] 1.79 10*3/uL 0.83-4.51 [facility] Absolute neutrophil countOrd ered By: Doron Castellanos on 03-23-2025 Neutrophils (Bld) [#/Vol] 2.1 10*3/uL 2.0-7.7 [facility] Amylaseon 03-23-2025 SABRINA 79 U/L Normal 28-100 [facility] Comment on above: Performed By: #### L 501.4021, L501.2400, L100.0100, L501.3620, L500.4050, L3600.5100, L501.2450 ####[facility] [address] [place], [address] Anion gap in Serum or Plasma Ordered By: Doron Umañaok on 03-23-2025 Anion gap [Moles/Vol] 11 mmol/L 5-15 [facility] Automated lymphocyte count a s percentage of total leukocytesOrdered By: Doron Castellanos on 03-23-2025 Lymphocytes/100 WBC Auto (Unsp spec) 38.9 % - [facility] BUN/creatinine ratioOrdered By: Doron Idalmis on 03-23-2025 Urea nitrogen/Creatinine [Mass ratio] 13.2 mg/mg 10- [facility] Basophil percentageOrdered B y: Doron Idalmis on 03-23-2025 Basophils/100 WBC (Bld) 0.2 % 0-1 [facility] Bilirubin, totalOrdered By: Doron Castellanos on 03-23-2025 Bilirubin [Mass/Vol] 0.40 mg/dL 0.00-1.30 [facility] CBC W/Diff, Automatedon Absolute Lymph 1.79 X10 3/uL Normal 0.83-4.51 [facility] Comment on above: Performed By: #### L 501.4021, L501.2400, L100.0100, L501.3620, L500.4050, L3600.5100, L501.2450 ####[facility] [address] [place], [address] Absolute Neut 2.1 X10 3/uL Normal 2.0-7.7 [facility] Comment on above: Performed By: #### L 501.4021, L501.2400, L100.0100, L501.3620, L500.4050, L3600.5100, L501.2450 ####[facility] [address] [place], [address] Basophils/100 WBC (Bld) 0.2 % Normal 0-1 [facility] Comment on above: Performed By: #### L 501.4021, L501.2400, L100.0100, L501.3620, L500.4050, L3600.5100, L501.2450 ####[facility] [address] [place], [address] Eosinophils/100 WBC (Bld) 2.8 % Normal 0-5 [facility] Comment on above: Performed By: #### L 501.4021, L501.2400, L100.0100, L501.3620, L500.4050, L3600.5100, L501.2450 ####[facility] [address] [place], [address] Erythrocyte distribution width (RBC) [Ratio] 13.9 % Normal 11.6-14.6 [facility] Comment on above: Performed By: #### L 501.4021, L501.2400, L100.0100, L501.3620, L500.4050, L3600.5100, L501.2450 ####[facility] [address] [place], [address] Hematocrit (Bld) [Volume fraction] 40.2 % Normal 40-54 [facility] Comment on above: Performed By: #### L 501.4021, L501.2400, L100.0100, L501.3620, L500.4050, L3600.5100, L501.2450 ####[facility] [address] [place], [address] Hemoglobin (Bld) [Mass/Vol] 13.6 g/dL Normal 13.0-16.5 [facility] Comment on above: Performed By: #### L 501.4021, L501.2400, L100.0100, L501.3620, L500.4050, L3600.5100, L501.2450 ####[facility] [address] [place], [address] IG% 0.200 Normal 0.0-0.9 [facility] Comment on above: Result Comment: IG% - Immature Granulocytes (promyelocytes, myelocytes and metamyelocytes) > 1% indicates that a LEFT SHIFT is Present. Performed By: #### L 501.4021, L501.2400, L100.0100, L501.3620, L500.4050, L3600.5100, L501.2450 ####[facility] [address] [place], [address] Lymphocytes/100 WBC (Bld) 38.9 % Normal 19-41 [facility] Comment on above: Performed By: #### L 501.4021, L501.2400, L100.0100, L501.3620, L500.4050, L3600.5100, L501.2450 ####[facility] [address] [place], [address] MCH (RBC) [Entitic mass] 26.8 pg Low 27.0-32.0 [facility] Comment on above: Performed By: #### L 501.4021, L501.2400, L100.0100, L501.3620, L500.4050, L3600.5100, L501.2450 ####[facility] [address] [place], [address] MCHC (RBC) [Mass/Vol] 33.8 g/dL Normal 32-36 [facility] Comment on above: Performed By: #### L 501.4021, L501.2400, L100.0100, L501.3620, L500.4050, L3600.5100, L501.2450 ####[facility] [address] [place], [address] MCV (RBC) [Entitic vol] 79.3 fL Low 80-94 [facility] Comment on above: Performed By: #### L 501.4021, L501.2400, L100.0100, L501.3620, L500.4050, L3600.5100, L501.2450 ####[facility] [address] [place], [address] Monocytes/100 WBC (Bld) 12.2 % High 0-10 [facility] Comment on above: Performed By: #### L 501.4021, L501.2400, L100.0100, L501.3620, L500.4050, L3600.5100, L501.2450 ####[facility] [address] [place], [address] Neutrophils/100 WBC (Bld) 45.7 % Low 47-70 [facility] Comment on above: Performed By: #### L 501.4021, L501.2400, L100.0100, L501.3620, L500.4050, L3600.5100, L501.2450 ####[facility] [address] [place], [address] Nucleated RBC (Bld) [#/Vol] 0 10*3/uL Normal 0-5 [facility] Comment on above: Performed By: #### L 501.4021, L501.2400, L100.0100, L501.3620, L500.4050, L3600.5100, L501.2450 ####[facility] [address] [place], [address] Platelet mean volume (Bld) [Entitic vol] 9.8 fL Normal 6.2-12.0 [facility] Comment on above: Performed By: #### L 501.4021, L501.2400, L100.0100, L501.3620, L500.4050, L3600.5100, L501.2450 ####[facility] [address] [place], [address] Platelets (Bld) [#/Vol] 265 10*3/uL Normal 150-450 [facility] Comment on above: Performed By: #### L 501.4021, L501.2400, L100.0100, L501.3620, L500.4050, L3600.5100, L501.2450 ####[facility] [address] [place], [address] RBC (Bld) [#/Vol] 5.07 10*6/uL Normal 4.6-6.2 [facility] Comment on above: Performed By: #### L 501.4021, L501.2400, L100.0100, L501.3620, L500.4050, L3600.5100, L501.2450 ####[facility] [address] [place], [address] RDW SD 40.0 fl Normal 35.1-43.9 [facility] Comment on above: Performed By: #### L 501.4021, L501.2400, L100.0100, L501.3620, L500.4050, L3600.5100, L501.2450 ####[facility] [address] [place], [address] WBC (Bld) [#/Vol] 4.6 10*3/uL Normal 4.4-11.0 [facility] Comment on above: Performed By: #### L 501.4021, L501.2400, L100.0100, L501.3620, L500.4050, L3600.5100, L501.2450 ####[facility] [address] [place], [address] CPK Total, Creatine Kinaseon 03-23-2025 CPK TOTAL 261 U/L High 24-195 [facility] Comment on above: Performed By: #### L 501.4021, L501.2400, L100.0100, L501.3620, L500.4050, L3600.5100, L501.2450 ####[facility] [address] [place], [address] Carbon dioxide, total [Moles /volume] in Central venous bloodOrdered By: Doron Castellanos on 03-23-2025 CO2 [Moles/Vol] 22.9 mmol/L 21.0-32.0 [facility] Chloride assayOrdered By: Mirza Castellanos on 03-23-2025 Chloride [Moles/Vol] 104 mmol/L 98-108 [facility] Comprehensive Metabolic Prof ilon 03-23-2025 Albumin [Mass/Vol] 4.1 g/dL Normal 3.4-4.8 [facility] Comment on above: Performed By: #### L 501.4021, L501.2400, L100.0100, L501.3620, L500.4050, L3600.5100, L501.2450 ####[facility] [address] [place], [address] Albumin/Globulin [Mass ratio] 1.1 {ratio} Normal 0.9-2.4 [facility] Comment on above: Performed By: #### L 501.4021, L501.2400, L100.0100, L501.3620, L500.4050, L3600.5100, L501.2450 ####[facility] [address] [place], [address] ALK PHOS 108 U/L Normal 40-129 [facility] Comment on above: Performed By: #### L 501.4021, L501.2400, L100.0100, L501.3620, L500.4050, L3600.5100, L501.2450 ####[facility] [address] [place], [address] ALT [Catalytic activity/Vol] 28 U/L Normal <=46 [facility] Comment on above: Performed By: #### L 501.4021, L501.2400, L100.0100, L501.3620, L500.4050, L3600.5100, L501.2450 ####[facility] [address] [place], [address] AST [Catalytic activity/Vol] 25 U/L Normal <=37 [facility] Comment on above: Result Comment: Hemo lysis present, Results??could be affected. ?? Performed By: #### L 501.4021, L501.2400, L100.0100, L501.3620, L500.4050, L3600.5100, L501.2450 ####[facility] [address] [place], [address] Bilirubin [Mass/Vol] 0.40 mg/dL Normal 0.00-1.30 [facility] Comment on above: Performed By: #### L 501.4021, L501.2400, L100.0100, L501.3620, L500.4050, L3600.5100, L501.2450 ####[facility] [address] [place], [address] BUN/CRE 13.2 RATIO Normal 10-20 [facility] Comment on above: Performed By: #### L 501.4021, L501.2400, L100.0100, L501.3620, L500.4050, L3600.5100, L501.2450 ####[facility] [address] [place], [address] Calcium [Mass/Vol] 9.3 mg/dL Normal 7.6-11.0 [facility] Comment on above: Performed By: #### L 501.4021, L501.2400, L100.0100, L501.3620, L500.4050, L3600.5100, L501.2450 ####[facility] [address] [place], [address] Chloride [Moles/Vol] 104 mmol/L Normal 98-108 [facility] Comment on above: Performed By: #### L 501.4021, L501.2400, L100.0100, L501.3620, L500.4050, L3600.5100, L501.2450 ####[facility] [address] [place], [address] CO2 [Moles/Vol] 22.9 mmol/L Normal 21.0-32.0 [facility] Comment on above: Performed By: #### L 501.4021, L501.2400, L100.0100, L501.3620, L500.4050, L3600.5100, L501.2450 ####[facility] [address] [place], [address] Creatinine [Mass/Vol] 1.26 mg/dL High 0.70-1.20 [facility] Comment on above: Performed By: #### L 501.4021, L501.2400, L100.0100, L501.3620, L500.4050, L3600.5100, L501.2450 ####[facility] [address] [place], [address] GAP 11 Normal 5-15 [facility] Comment on above: Performed By: #### L 501.4021, L501.2400, L100.0100, L501.3620, L500.4050, L3600.5100, L501.2450 ####[facility] [address] [place], [address] GFR/1.73 sq M.predicted among non-blacks MDRD (S/P/Bld) [Vol rate/Area] 63 mL/min/{1.73_m2} Normal >[address] [facility] Comment on above: Result Comment: mL/m in/1.73m2 CKD-EPI Creatinine Equation (2021) Performed By: #### L 501.4021, L501.2400, L100.0100, L501.3620, L500.4050, L3600.5100, L501.2450 ####[facility] [address] [place], [address] Globulin (S) [Mass/Vol] 3.8 g/dL Normal 2.2-4.2 [facility] Comment on above: Performed By: #### L 501.4021, L501.2400, L100.0100, L501.3620, L500.4050, L3600.5100, L501.2450 ####[facility] [address] [place], [address] Glucose [Mass/Vol] 99 mg/dL Normal 70-99 [facility] Comment on above: Performed By: #### L 501.4021, L501.2400, L100.0100, L501.3620, L500.4050, L3600.5100, L501.2450 ####[facility] [address] [place], [address] Potassium [Moles/Vol] 4.3 mmol/L Normal 3.3-5.1 [facility] Comment on above: Result Comment: Hemo lysis present, Results??could be affected. ?? Performed By: #### L 501.4021, L501.2400, L100.0100, L501.3620, L500.4050, L3600.5100, L501.2450 ####[facility] [address] [place], [address] Sodium [Moles/Vol] 138 mmol/L Normal 133-145 [facility] Comment on above: Performed By: #### L 501.4021, L501.2400, L100.0100, L501.3620, L500.4050, L3600.5100, L501.2450 ####[facility] [address] [place], [address] T PROT 7.9 g/dL Normal 5.9-8.4 [facility] Comment on above: Performed By: #### L 501.4021, L501.2400, L100.0100, L501.3620, L500.4050, L3600.5100, L501.2450 ####[facility] [address] [place], [address] Urea nitrogen [Mass/Vol] 17 mg/dL Normal 4-19 [facility] Comment on above: Performed By: #### L 501.4021, L501.2400, L100.0100, L501.3620, L500.4050, L3600.5100, L501.2450 ####[facility] [address] [place], [place], [address] Eosinophil percentageOrdered By: Doron Castellanos on 03-23-2025 Eosinophils/100 WBC (Bld) 2.8 % 0-5 [facility] Erythrocyte distribution wid th ratioOrdered By: [facility] Erythrocyte distribution width (RBC) [Ratio] 13.9 % 11.6-14.6 [facility] Erythrocyte distribution wid th standard deviationOrdered By: Doron Idalmis 03-23-2025 Erythrocyte distribution width (RBC) [Ratio] 40.0 fl 35.1-43.9 [facility] Glomerular filtration rate ( GFR) estimation/1.73 sq m using serum, plasma, or whole bOrdered By: Doron Castellanos on 03-23-2025 GFR/1.73 sq M.predicted among non-blacks MDRD (S/P/Bld) [Vol rate/Area] 63 mL/min/{1.73_m2} >[address] [facility] Comment on above: mL/min/1.73m2 CKD-EP I Creatinine Equation (2020) Hematocrit Auto (Bld) [Volum e fraction]Ordered By: Doron Castellanos on 03-23-2025 Hematocrit (Bld) [Volume fraction] 40.2 % 40-54 [facility] Hemoglobin measurementOrdere d By: Doron Castellanos on 03-23-2025 Hemoglobin (Bld) [Mass/Vol] 13.6 g/dL 13.0-16.5 [facility] Immature granulocytes/100 WB C Auto (Bld)Ordered By: Doron Idalmis on 03-23-2025 Immature granulocytes/100 WBC (Bld) 0.200 % 0.0-0.9 [facility] Comment on above: IG% - Immature Granu locytes (promyelocytes, myelocytes and metamyelocytes) > 1% indicates that a LEFT SHIFT is Present. L501.4021on 03-23-2025 Trop T High Sen 8 ng/L Normal <=22 [facility] Comment on above: Performed By: #### L 501.4021, L501.2400, L100.0100, L501.3620, L500.4050, L3600.5100, L501.2450 ####[facility] [address] [place], [address] Laboratory - Chemistry and C hemistry - challengeOrdered By: Doron Idalmis on 03-23-2025 AST [Catalytic activity/Vol] 25 U/L <38 [facility] Comment on above: Hemolysis present, R esults could be affected. Lipaseon 03-23-2025 Lipase [Catalytic activity/Vol] 28 U/L Normal 13-75 [facility] Comment on above: Result Comment: Vianney lopez note: LIPASE revised reference range effective 22. New Lipase methodology. Expected to produce lower values than the previous assay method. NEW Reference Range: 13 - 75 U/L Performed By: #### L 501.4021, L501.2400, L100.0100, L501.3620, L500.4050, L3600.5100, L501.2450 ####[facility] [address] [place], [place], [address] Lipase measurementOrdered By : Doron Catsellanos on 03-23-2025 Lipase [Catalytic activity/Vol] 28 U/L 13-75 [facility] Comment on above: Please note:LIPASE r evised reference range effective 22. New Lipase methodology. Expected to produce lower values than the previous assay method. NEW Reference Range: 13 - 75 U/L MCV (mean corpuscular volume ) determinationOrdered By: Doron Castellanos on 03-23-2025 MCV (RBC) [Entitic vol] 79.3 fL Low 80-94 [facility] Mean corpuscular hemoglobin (MCH) determinationOrdered By: Doron Castellanos on 03-23-2025 MCH (RBC) [Entitic mass] 26.8 pg Low 27.0-32.0 [facility] Mean corpuscular hemoglobin concentration (MCHC) determinationOrdered By: Doron Castellanos on 03-23-2025 MCHC (RBC) [Mass/Vol] 33.8 g/dL 32-36 [facility] Mean platelet volume determi nationOrdered By: Doron Castellanos on 03-23-2025 Platelet mean volume (Bld) [Entitic vol] 9.8 fL 6.2-12.0 [facility] Monocyte percentageOrdered B y: Doron Castellanos on 03-23-2025 Monocytes/100 WBC (Bld) 12.2 % High 0-10 [facility] Neutrophil percentageOrdered By: Doron Castellanos on 03-23-2025 Neutrophils/100 WBC (Bld) 45.7 % Low 47-70 [facility] Nucleated red blood cell per centageOrdered By: Doron Castellanos 03-23-2025 Nucleated RBC/100 WBC (Bld) [Ratio] 0 % 0-5 [facility] Platelet countOrdered By: Mirza Castellanos on 03-23-2025 Platelets (Bld) [#/Vol] 265 10*3/uL 150-450 [facility] Potassium measurement (mass/ volume)Ordered By: Doron Castellanos 03-23-2025 Potassium (Unsp spec) [Mass/Vol] 4.3 mmol/L 3.3-5.1 [facility] Comment on above: Hemolysis present, R esults could be affected. RBC Auto (Bld) [#/Vol]Ordere d By: Doron Castellanos 03-23-2025 RBC (Bld) [#/Vol] 5.07 10*6/uL 4.6-6.2 [facility] Serum creatinine measurement (mass/volume)Ordered By: Doron Castellanos on 03-23-2025 Creatinine [Mass/Vol] 1.26 mg/dL High 0.70-1.20 [facility] Serum globulin measurementOr dered By: Doron Castellanos on 03-23-2025 Globulin (S) [Mass/Vol] 3.8 g/dL 2.2-4.2 [facility] Serum glucose measurement (m ass/volume)Ordered By: Doron Castellanos on 03-23-2025 Glucose [Mass/Vol] 99 mg/dL 70-99 [facility] Serum myoglobin measurementO rdered By: Doron Castellanos on 03-23-2025 Myoglobin [Mass/Vol] 52 ng/mL 28-72 [facility] Comment on above: Performed at: [address] [id number] Director: Jerzy Wright PhD, Phone: [phone] Serum or plasma alanine escobar otransferase (ALT) measurementOrdered By: Doron Castellanos on 03-23-2025 ALT [Catalytic activity/Vol] 28 U/L <47 [facility] Serum or plasma albumin evangelist urement (mass/volume)Ordered By: Doron Castellanos 03-23-2025 Albumin [Mass/Vol] 4.1 g/dL 3.4-4.8 [facility] Serum or plasma albumin/glob ulin mass ratioOrdered By: Doron Castellanos 03-23-2025 Albumin/Globulin [Mass ratio] 1.1 {ratio} 0.9-2.4 [facility] Serum or plasma alkaline wyatt sphatase measurementOrdered By: Doron Castellanos 03-23-2025 ALP [Catalytic activity/Vol] 108 U/L 40-129 [facility] Serum or plasma amylase evangelist urement (enzymatic activity/volume)Ordered By: Doron Castellanos 03-23-2025 Amylase [Catalytic activity/Vol] 79 U/L 28-100 [facility] Serum or plasma calcium evangelist urement (mass/volume)Ordered By: Doron Castellanos 03-23-2025 Calcium [Mass/Vol] 9.3 mg/dL 7.6-11.0 [facility] Serum or plasma creatine kin ase activityOrdered By: Doron Castellanos 03-23-2025 CK [Catalytic activity/Vol] 261 U/L High 24-195 [facility] Serum or plasma urea nitroge n measurement (mass/volume)Ordered By: Doron Castellanos on 03-23-2025 Urea nitrogen [Mass/Vol] 17 mg/dL 4-19 [facility] Sodium levelOrdered By: Doron Castellanos on 03-23-2025 Sodium [Moles/Vol] 138 mmol/L 133-145 [facility] Thoracic Spine 3 Viewson Thoracic Spine 3 Views [facility] Services [address] [place] [address] Thoracic Spine 3 Views MR#: [id number] Acct: [id number] Name: RANDALL VILLATORO Rep #: [id number] : 1960 M 64 From: Shaka hays MD PCP: Dr. Doron Castellanos MD Status: REG CLI Study: Thoracic Spine 3 Views Date of Exam: 03/23/25 Exam# [id number] Ordering Dr: Doron Castellanos MD PROCEDURE: THORACIC SPINE 3 VIEWS 03/23/2025 REASON FOR EXAM: MUSCLE SPASM OF BACK TECHNIQUE: Procedure Code: RADSPT Modality: DX Procedure: THORACIC SPINE 3 VIEWS COMPARISON: None FINDINGS: Vertebrae: No fracture. Bone mineralization is preserved Discs: Mild multilevel degenerative disc disease of the lower cervical spine and midthoracic spine Alignment: Very gentle scoliosis. No kyphosis or subluxation. Other: Visible lung parenchyma and soft tissues appear normal RAD/Thoracic Spine 3 Views IMPRESSION: Mild multilevel degenerative disc disease. No fracture. Reading Location: [id number] CC: Dr. Doron Castellanos MD Forensic Structural Engineer: Signed Normal [facility] Total proteinOrdered By: Doron Castellanos on 03-23-2025 Protein [Mass/Vol] 7.9 g/dL 5.9-8.4 [facility] Troponin T.cardiac [Mass/vol ume] in Serum or Plasma by High sensitivity methodOrdered By: Doron Castellanos on 03-23-2025 Troponin T.cardiac High sensitivity method [Mass/Vol] 8 ng/L <22 [facility] White blood cell (WBC) count Ordered By: Doron Castellanos on 03-23-2025 WBC (Bld) [#/Vol] 4.6 10*3/uL 4.4-11.0 [facility] CBC W/Diff, Automatedon 04-2 Absolute Lymph 1.74 X10 3/uL Normal 0.83-4.51 [facility] Comment on above: Performed By: #### L 500.4050, L100.0100, L506.1001, L501.9910, L501.9520 #### [facility] [address] [place], [address] Absolute Neut 1.6 X10 3/uL Low 2.0-7.7 [facility] Comment on above: Performed By: #### L 500.4050, L100.0100, L506.1001, L501.9910, L501.9520 #### [facility] [address] [place], [address] Basophils/100 WBC (Bld) 0.3 % Normal 0-1 [facility] Comment on above: Performed By: #### L 500.4050, L100.0100, L506.1001, L501.9910, L501.9520 #### [facility] [address] [place], [address] Eosinophils/100 WBC (Bld) 2.5 % Normal 0-5 [facility] Comment on above: Performed By: #### L 500.4050, L100.0100, L506.1001, L501.9910, L501.9520 #### [facility] [address] [place], [address] Erythrocyte distribution width (RBC) [Ratio] 13.8 % Normal 11.6-14.6 [facility] Comment on above: Performed By: #### L 500.4050, L100.0100, L506.1001, L501.9910, L501.9520 #### [facility] [address] [place], [address] Hematocrit (Bld) [Volume fraction] 37.8 % Low 40-54 [facility] Comment on above: Performed By: #### L 500.4050, L100.0100, L506.1001, L501.9910, L501.9520 #### [facility] [address] [place], [address] Hemoglobin (Bld) [Mass/Vol] 12.2 g/dL Low 13.0-16.5 [facility] Comment on above: Performed By: #### L 500.4050, L100.0100, L506.1001, L501.9910, L501.9520 #### [facility] [address] [place], [address] IG% 0.300 Normal 0.0-0.9 [facility] Comment on above: Result Comment: IG% - Immature Granulocytes (promyelocytes, myelocytes and metamyelocytes) > 1% indicates that a LEFT SHIFT is Present. Performed By: #### L 500.4050, L100.0100, L506.1001, L501.9910, L501.9520 #### [facility] [address] [place], [address] Lymphocytes/100 WBC (Bld) 43.8 % High 19-41 [facility] Comment on above: Performed By: #### L 500.4050, L100.0100, L506.1001, L501.9910, L501.9520 #### [facility] [address] [place], [address] MCH (RBC) [Entitic mass] 25.5 pg Low 27.0-32.0 [facility] Comment on above: Performed By: #### L 500.4050, L100.0100, L506.1001, L501.9910, L501.9520 #### [facility] [address] [place], [address] MCHC (RBC) [Mass/Vol] 32.3 g/dL Normal 32-36 [facility] Comment on above: Performed By: #### L 500.4050, L100.0100, L506.1001, L501.9910, L501.9520 #### [facility] [address] [place], [address] MCV (RBC) [Entitic vol] 78.9 fL Low 80-94 [facility] Comment on above: Performed By: #### L 500.4050, L100.0100, L506.1001, L501.9910, L501.9520 #### [facility] [address] [place], [address] Monocytes/100 WBC (Bld) 12.8 % High 0-10 [facility] Comment on above: Performed By: #### L 500.4050, L100.0100, L506.1001, L501.9910, L501.9520 #### [facility] [address] [place], [address] Neutrophils/100 WBC (Bld) 40.3 % Low 47-70 [facility] Comment on above: Performed By: #### L 500.4050, L100.0100, L506.1001, L501.9910, L501.9520 #### [facility] [address] [place], [address] Nucleated RBC (Bld) [#/Vol] 0 10*3/uL Normal 0-5 [facility] Comment on above: Performed By: #### L 500.4050, L100.0100, L506.1001, L501.9910, L501.9520 #### [facility] [address] [place], [address] Platelet mean volume (Bld) [Entitic vol] 10.0 fL Normal 6.2-12.0 [facility] Comment on above: Performed By: #### L 500.4050, L100.0100, L506.1001, L501.9910, L501.9520 #### [facility] [address] [place], [address] Platelets (Bld) [#/Vol] 244 10*3/uL Normal 150-450 [facility] Comment on above: Performed By: #### L 500.4050, L100.0100, L506.1001, L501.9910, L501.9520 #### [facility] [address] [place], [address] RBC (Bld) [#/Vol] 4.79 10*6/uL Normal 4.6-6.2 [facility] Comment on above: Performed By: #### L 500.4050, L100.0100, L506.1001, L501.9910, L501.9520 #### [facility] [address] [place], [address] RDW SD 39.5 fl Normal 35.1-43.9 [facility] Comment on above: Performed By: #### L 500.4050, L100.0100, L506.1001, L501.9910, L501.9520 #### [facility] [address] [place], [address] WBC (Bld) [#/Vol] 4.0 10*3/uL Low 4.4-11.0 [facility] Comment on above: Performed By: #### L 500.4050, L100.0100, L506.1001, L501.9910, L501.9520 #### [facility] [address] [place], [address] Comprehensive Metabolic [facility] 11-06-2024 Albumin [Mass/Vol] 4.0 g/dL Normal 3.4-4.8 [facility] Comment on above: Performed By: #### L 500.4050, L100.0100, L506.1001, L501.9910, L501.9520 #### [facility] [address] [place], [address] Albumin/Globulin [Mass ratio] 1.1 {ratio} Normal 0.9-2.4 [facility] Comment on above: Performed By: #### L 500.4050, L100.0100, L506.1001, L501.9910, L501.9520 #### [facility] [address] [place], [address] ALK PHOS 121 U/L Normal 40-129 [facility] Comment on above: Performed By: #### L 500.4050, L100.0100, L506.1001, L501.9910, L501.9520 #### [facility] [address] [place], [address] ALT [Catalytic activity/Vol] 22 U/L Normal <=46 [facility] Comment on above: Performed By: #### L 500.4050, L100.0100, L506.1001, L501.9910, L501.9520 #### [facility] [address] [place], [address] AST [Catalytic activity/Vol] 25 U/L Normal <=37 [facility] Comment on above: Performed By: #### L 500.4050, L100.0100, L506.1001, L501.9910, L501.9520 #### [facility] [address] [place], [address] Bilirubin [Mass/Vol] 0.49 mg/dL Normal 0.00-1.30 [facility] Comment on above: Performed By: #### L 500.4050, L100.0100, L506.1001, L501.9910, L501.9520 #### [facility] [address] [place], [address] BUN/CRE 12.3 RATIO Normal 10-20 [facility] Comment on above: Performed By: #### L 500.4050, L100.0100, L506.1001, L501.9910, L501.9520 #### [facility] [address] [place], [address] Calcium [Mass/Vol] 9.0 mg/dL Normal 7.6-11.0 [facility] Comment on above: Performed By: #### L 500.4050, L100.0100, L506.1001, L501.9910, L501.9520 #### [facility] [address] [place], [address] Chloride [Moles/Vol] 104 mmol/L Normal 98-108 [facility] Comment on above: Performed By: #### L 500.4050, L100.0100, L506.1001, L501.9910, L501.9520 #### [facility] [address] [place], [address] CO2 [Moles/Vol] 23.0 mmol/L Normal 21.0-32.0 [facility] Comment on above: Performed By: #### L 500.4050, L100.0100, L506.1001, L501.9910, L501.9520 #### [facility] [address] [place], [address] Creatinine [Mass/Vol] 1.23 mg/dL High 0.70-1.20 [facility] Comment on above: Performed By: #### L 500.4050, L100.0100, L506.1001, L501.9910, L501.9520 #### [facility] [address] [place], [address] GAP 10 Normal 5-15 [facility] Comment on above: Performed By: #### L 500.4050, L100.0100, L506.1001, L501.9910, L501.9520 #### [facility] [address] [place], [address] GFR/1.73 sq M.predicted among non-blacks MDRD (S/P/Bld) [Vol rate/Area] 65 mL/min/{1.73_m2} Normal >[address] [facility] Comment on above: Result Comment: mL/m in/1.73m2 CKD-EPI Creatinine Equation (2020) Performed By: #### L 500.4050, L100.0100, L506.1001, L501.9910, L501.9520 #### [facility] [address] [place], [address] Globulin (S) [Mass/Vol] 3.7 g/dL Normal 2.2-4.2 [facility] Comment on above: Performed By: #### L 500.4050, L100.0100, L506.1001, L501.9910, L501.9520 #### [facility] [address] [place], [address] Glucose [Mass/Vol] 107 mg/dL High 70-99 [facility] Comment on above: Performed By: #### L 500.4050, L100.0100, L506.1001, L501.9910, L501.9520 #### [facility] [address] [place], [address] Potassium [Moles/Vol] 4.0 mmol/L Normal 3.3-5.1 [facility] Comment on above: Performed By: #### L 500.4050, L100.0100, L506.1001, L501.9910, L501.9520 #### [facility] [address] [place], [address] Sodium [Moles/Vol] 137 mmol/L Normal 133-145 [facility] Comment on above: Performed By: #### L 500.4050, L100.0100, L506.1001, L501.9910, L501.9520 #### [facility] [address] [place], [address] T PROT 7.7 g/dL Normal 5.9-8.4 [facility] Comment on above: Performed By: #### L 500.4050, L100.0100, L506.1001, L501.9910, L501.9520 #### [facility] [address] [place], [address] Urea nitrogen [Mass/Vol] 15 mg/dL Normal 4-19 [facility] Comment on above: Performed By: #### L 500.4050, L100.0100, L506.1001, L501.9910, L501.9520 #### [facility] [address] [place], [address] PSA,Total - Annual Screenon 11-06-2024 PSA,TOT SCREEN 0.64 ng/mL Normal 0.02-4.00 [facility] Comment on above: Result Comment: This test was performed using the [employer] tPSA method. Measured values of a patient??sample can vary depending on the testing procedure used. PSA values determined on patient samples by different testing procedures cannot be used interchangeably. If there is a change in PSA assays while monitoring therapy, sequential testing should be performed to confirm baseline values. Performed By: #### L 500.4050, L100.0100, L506.1001, L501.9910, L501.9520 #### [facility] [address] [place], [address] Thyroid Stim Hormone (TSH)on 11-06-2024 TSH 1.260 uIU/mL Normal 0.300-4.200 [facility] Comment on above: Performed By: #### L 500.4050, L100.0100, L506.1001, L501.9910, L501.9520 #### [facility] [address] [place], [address] Vitamin D,25 Hydroxyon 11-06 Vitamin D 25-OH 13.9 ng/mL Low 30-100 [facility] Comment on above: Result Comment: Edyta min D Status Deficiency: <20 ng/mL (50nmol/L) Insufficiency: 20-30 ng/mL (50-75 nmol/L) Sufficiency: 30-100 ng/mL (75-250 nmol/L) Toxicity: >100 ng/mL (>250 nmol/L) Performed By: #### L 500.4050, L100.0100, L506.1001, L501.9910, L501.9520 #### [facility] [address] [place], [address] CBC W/Diff, Automatedon 11 Absolute Lymph 2.09 X10 3/uL Normal 0.83-4.51 [facility] Comment on above: Performed By: #### L 500.4050, L506.1000, L501.9520, L500.4100, L100.0100 ####[facility] [address] [place], [address] Absolute Neut 2.3 X10 3/uL Normal 2.0-7.7 [facility] Comment on above: Performed By: #### L 500.4050, L506.1000, L501.9520, L500.4100, L100.0100 ####[facility] [address] [place], [address] Basophils/100 WBC (Bld) 0.2 % Normal 0-1 [facility] Comment on above: Performed By: #### L 500.4050, L506.1000, L501.9520, L500.4100, L100.0100 ####[facility] [address] [place], [address] Eosinophils/100 WBC (Bld) 2.5 % Normal 0-5 [facility] Comment on above: Performed By: #### L 500.4050, L506.1000, L501.9520, L500.4100, L100.0100 ####[facility] [address] [place], [address] Erythrocyte distribution width (RBC) [Ratio] 14.4 % Normal 11.6-14.6 [facility] Comment on above: Performed By: #### L 500.4050, L506.1000, L501.9520, L500.4100, L100.0100 ####[facility] [address] [place], [address] Hematocrit (Bld) [Volume fraction] 37.9 % Low 40-54 [facility] Comment on above: Performed By: #### L 500.4050, L506.1000, L501.9520, L500.4100, L100.0100 ####[facility] [address] [place], [address] Hemoglobin (Bld) [Mass/Vol] 12.1 g/dL Low 13.0-16.5 [facility] Comment on above: Performed By: #### L 500.4050, L506.1000, L501.9520, L500.4100, L100.0100 ####[facility] [address] [place], [address] IG% 0.200 Normal 0.0-0.9 [facility] Comment on above: Result Comment: IG% - Immature Granulocytes (promyelocytes, myelocytes and metamyelocytes) > 1% indicates that a LEFT SHIFT is Present. Performed By: #### L 500.4050, L506.1000, L501.9520, L500.4100, L100.0100 ####[facility] [address] [place], [address] Lymphocytes/100 WBC (Bld) 40.3 % Normal 19-41 [facility] Comment on above: Performed By: #### L 500.4050, L506.1000, L501.9520, L500.4100, L100.0100 ####[facility] [address] [place], [address] MCH (RBC) [Entitic mass] 25.1 pg Low 27.0-32.0 [facility] Comment on above: Performed By: #### L 500.4050, L506.1000, L501.9520, L500.4100, L100.0100 ####[facility] [address] [place], [address] MCHC (RBC) [Mass/Vol] 31.9 g/dL Low 32-36 [facility] Comment on above: Performed By: #### L 500.4050, L506.1000, L501.9520, L500.4100, L100.0100 ####[facility] [address] [place], [address] MCV (RBC) [Entitic vol] 78.6 fL Low 80-94 [facility] Comment on above: Performed By: #### L 500.4050, L506.1000, L501.9520, L500.4100, L100.0100 ####[facility] [address] [place], [address] Monocytes/100 WBC (Bld) 13.1 % High 0-10 [facility] Comment on above: Performed By: #### L 500.4050, L506.1000, L501.9520, L500.4100, L100.0100 ####[facility] [address] [place], [address] Neutrophils/100 WBC (Bld) 43.7 % Low 47-70 [facility] Comment on above: Performed By: #### L 500.4050, L506.1000, L501.9520, L500.4100, L100.0100 ####[facility] [address] [place], [address] Nucleated RBC (Bld) [#/Vol] 0 10*3/uL Normal 0-5 [facility] Comment on above: Performed By: #### L 500.4050, L506.1000, L501.9520, L500.4100, L100.0100 ####[facility] [address] [place], [address] Platelet mean volume (Bld) [Entitic vol] 10.9 fL Normal 6.2-12.0 [facility] Comment on above: Performed By: #### L 500.4050, L506.1000, L501.9520, L500.4100, L100.0100 ####[facility] [address] [place], [address] Platelets (Bld) [#/Vol] 235 10*3/uL Normal 150-450 [facility] Comment on above: Performed By: #### L 500.4050, L506.1000, L501.9520, L500.4100, L100.0100 ####[facility] [address] [place], [address] RBC (Bld) [#/Vol] 4.82 10*6/uL Normal 4.6-6.2 [facility] Comment on above: Performed By: #### L 500.4050, L506.1000, L501.9520, L500.4100, L100.0100 ####[facility] [address] [place], [address] RDW SD 41.1 fl Normal 35.1-43.9 [facility] Comment on above: Performed By: #### L 500.4050, L506.1000, L501.9520, L500.4100, L100.0100 ####[facility] [address] [place], [address] WBC (Bld) [#/Vol] 5.2 10*3/uL Normal 4.4-11.0 [facility] Comment on above: Performed By: #### L 500.4050, L506.1000, L501.9520, L500.4100, L100.0100 ####[facility] [address] [place], [address] Comprehensive Metabolic Prof ilon 05-27-2024 Albumin [Mass/Vol] 3.6 g/dL Normal 3.2-5.0 [facility] Comment on above: Performed By: #### L 500.4050, L506.1000, L501.9520, L500.4100, L100.0100 ####[facility] [address] [place], [address] Albumin/Globulin [Mass ratio] 0.9 {ratio} Normal 0.9-2.4 [facility] Comment on above: Performed By: #### L 500.4050, L506.1000, L501.9520, L500.4100, L100.0100 ####[facility] [address] [place], [address] ALK P 115 U/L Normal 45-117 [facility] Comment on above: Performed By: #### L 500.4050, L506.1000, L501.9520, L500.4100, L100.0100 ####[facility] [address] [place], [address] ALT [Catalytic activity/Vol] 32 U/L Normal 16-61 [facility] Comment on above: Performed By: #### L 500.4050, L506.1000, L501.9520, L500.4100, L100.0100 ####[facility] [address] [place], [address] AST [Catalytic activity/Vol] 19 U/L Normal 15-37 [facility] Comment on above: Performed By: #### L 500.4050, L506.1000, L501.9520, L500.4100, L100.0100 ####[facility] [address] [place], [address] Bilirubin [Mass/Vol] 0.40 mg/dL Normal 0.20-1.00 [facility] Comment on above: Result Comment: For patients on eltrombopag therapy, use of Dimension [place] TBIL is not recommended. Performed By: #### L 500.4050, L506.1000, L501.9520, L500.4100, L100.0100 ####[facility] [address] [place], [address] BUN/CRE 8.7 RATIO Low 10-20 [facility] Comment on above: Performed By: #### L 500.4050, L506.1000, L501.9520, L500.4100, L100.0100 ####[facility] [address] [place], [address] CA,Total 8.4 mg/dL Low 8.5-10.1 [facility] Comment on above: Performed By: #### L 500.4050, L506.1000, L501.9520, L500.4100, L100.0100 ####[facility] [address] [place], [address] Chloride [Moles/Vol] 107 mmol/L Normal 98-107 [facility] Comment on above: Performed By: #### L 500.4050, L506.1000, L501.9520, L500.4100, L100.0100 ####[facility] [address] [place], [address] CO2 [Moles/Vol] 27.0 mmol/L Normal 21.0-32.0 [facility] Comment on above: Performed By: #### L 500.4050, L506.1000, L501.9520, L500.4100, L100.0100 ####[facility] [address] [place], [address] Creatinine [Mass/Vol] 1.26 mg/dL Normal 0.70-1.30 [facility] Comment on above: Result Comment: The validity of the calculated GFR GFRAA in patients over 70 years has not been determined. Clinical correlation is essential. Performed By: #### L 500.4050, L506.1000, L501.9520, L500.4100, L100.0100 ####[facility] [address] [place], [address] EST GFR - AA 74 mL/min Normal >60 [facility] Comment on above: Result Comment: Afri can [place] GFR Calc Performed By: #### L 500.4050, L506.1000, L501.9520, L500.4100, L100.0100 ####[facility] [address] [place], [address] GAP 6 Normal 5-15 [facility] Comment on above: Performed By: #### L 500.4050, L506.1000, L501.9520, L500.4100, L100.0100 ####[facility] [address] [place], [address] GFR/1.73 sq M.predicted among non-blacks MDRD (S/P/Bld) [Vol rate/Area] 61 mL/min/{1.73_m2} Normal >[address] [facility] Comment on above: Result Comment: Non- GFR Calc Performed By: #### L 500.4050, L506.1000, L501.9520, L500.4100, L100.0100 ####[facility] [address] [place], [address] Globulin (S) [Mass/Vol] 4.2 g/dL Normal 2.2-4.2 [facility] Comment on above: Performed By: #### L 500.4050, L506.1000, L501.9520, L500.4100, L100.0100 ####[facility] [address] [place], [address] Glucose [Mass/Vol] 128 mg/dL High 74-106 [facility] Comment on above: Result Comment: Fast ing Glucose result greater than or equal to 126 mg/dL suggests DIABETES MELLITUS per A.D.A. criteria. Performed By: #### L 500.4050, L506.1000, L501.9520, L500.4100, L100.0100 ####[facility] [address] [place], [address] Potassium [Moles/Vol] 3.7 mmol/L Normal 3.5-5.1 [facility] Comment on above: Performed By: #### L 500.4050, L506.1000, L501.9520, L500.4100, L100.0100 ####[facility] [address] [place], [address] Sodium [Moles/Vol] 140 mmol/L Normal 136-145 [facility] Comment on above: Performed By: #### L 500.4050, L506.1000, L501.9520, L500.4100, L100.0100 ####[facility] [address] [place], [address] T PROT 7.8 g/dL Normal 6.4-8.2 [facility] Comment on above: Performed By: #### L 500.4050, L506.1000, L501.9520, L500.4100, L100.0100 ####[facility] [address] [place], [address] Urea nitrogen [Mass/Vol] 11 mg/dL Normal 7-18 [facility] Comment on above: Performed By: #### L 500.4050, L506.1000, L501.9520, L500.4100, L100.0100 ####[facility] [address] [place], [address] Lipid Profileon 05-27-2024 Cholesterol [Mass/Vol] 135 mg/dL Normal [address] [facility] Comment on above: Result Comment: <200 mg/dL Desirable 200-240 mg/dL Borderline >240 mg/dL High Risk Performed By: #### L 500.4050, L506.1000, L501.9520, L500.4100, L100.0100 ####[facility] [address] [place], [address] Cholesterol in HDL [Mass/Vol] 48 mg/dL Normal [facility] Comment on above: Result Comment: The drugs N-Acetylcysteine and Metamizole may falsely depress this assay. Reference Range HDL <40 mg/dL Low HDL Cholesterol HDL >or= 60 mg/dL High HDL Cholesterol Performed By: #### L 500.4050, L506.1000, L501.9520, L500.4100, L100.0100 ####[facility] [address] [place], [address] Cholesterol in LDL [Mass/Vol] 52 mg/dL Normal 0-130 [facility] Comment on above: Performed By: #### L 500.4050, L506.1000, L501.9520, L500.4100, L100.0100 ####[facility] [address] [place], [address] Cholesterol in VLDL [Mass/Vol] 35 mg/dL Normal 5-40 [facility] Comment on above: Performed By: #### L 500.4050, L506.1000, L501.9520, L500.4100, L100.0100 ####[facility] [address] [place], [address] Triglyceride [Mass/Vol] 175 mg/dL Normal [facility] Comment on above: Result Comment: The drugs N-Acetylcysteine and Metamizole may falsely depress this assay. Serum Triglycerides Reference Interval Normal <150 mg/dL Borderline high 150 - 199 mg/dL High 200 - 499 mg/dL Very High > or = 500 mg/dL Performed By: #### L 500.4050, L506.1000, L501.9520, L500.4100, L100.0100 ####[facility] [address] [place], [address] Thyroid Stim Hormone (TSH)on 05-27-2024 TSH 1.320 uIU/mL Normal 0.358-3.740 [facility] Comment on above: Performed By: #### L 500.4050, L506.1000, L501.9520, L500.4100, L100.0100 ####[facility] [address] [place], [address] Vitamin D,25 Hydroxyon 05-27 Vitamin D 25-OH 25.2 ng/mL Normal [facility] Comment on above: Result Comment: Edyta min D 25(OH) Status Range Deficiency <20 ng/mL (50nmol/L) Insufficiency 20 - 30 ng/mL (50 - 75 nmol/L) Sufficiency 30 - 100 ng/mL (75 - 250 nmol/L) Toxicity >100 ng/mL (>250 nmol/L) Performed By: #### L 500.4050, L506.1000, L501.9520, L500.4100, L100.0100 ####[facility] [address] [place], [address] Absolute lymphocyte countOrd ered By: Doron Castellanos on 04-15-2023 Lymphocytes Auto (Unsp spec) [#/Vol] 1.49 10*3/uL 0.83-4.51 [facility] Basophil percentageOrdered B y: Doron Castellanos on 04-15-2023 Basophils/100 WBC (Bld) 0.0 % 0-1 [facility] Bilirubin [Mass/Vol] 0.40 mg/dL 0.20-1.00 [facility] Comment on above: For patients on eltr ombopag therapy, use of Dimension [place] TBIL is not recommended. Chloride [Moles/Vol] 107 mmol/L 98-107 [facility] Eosinophils/100 WBC (Bld) 1.4 % 0-5 [facility] Glucose [Mass/Vol] 87 mg/dL 74-106 [facility] Neutrophils (Bld) [#/Vol] 2.4 10*3/uL 2.0-7.7 [facility] Neutrophils/100 WBC (Bld) 52.9 % 47-70 [facility] Potassium [Moles/Vol] 3.9 mmol/L 3.5-5.1 [facility] Protein [Mass/Vol] 8.0 g/dL 6.4-8.2 [facility] Sodium [Moles/Vol] 139 mmol/L 136-145 [facility] WBC (Bld) [#/Vol] 4.4 10*3/uL 4.4-11.0 [facility] Blood erythrocytes count (nu mber/volume)Ordered By: Doron Castellanos on 04-15-2023 RBC (Bld) [#/Vol] 5.12 10*6/uL 4.6-6.2 [facility] Blood hemoglobin measurement (mass/volume)Ordered By: Doron Castellanos on 04-15-2023 Hemoglobin (Bld) [Mass/Vol] 13.1 g/dL 13.0-16.5 [facility] Blood lymphocytes/100 leukoc ytesOrdered By: Doron Castellanos on 04-15-2023 Lymphocytes/100 WBC (Bld) 33.6 % 19-41 [facility] Blood monocytes/100 leukocyt esOrdered By: Doron Castellanos on 04-15-2023 Monocytes/100 WBC (Bld) 11.9 % 0-10 [facility] Blood platelet mean volumeOr dered By: Doron Castellanos on 04-15-2023 Platelet mean volume (Bld) [Entitic vol] 11.4 fL 6.2-12.0 [facility] Determination of erythrocyte mean corpuscular volume (MCV)Ordered By: Doron Castellanos on 04-15-2023 MCV (RBC) [Entitic vol] 81.4 fL 80-94 [facility] Hematocrit Auto (Bld) [Volum e fraction][facility] Hematocrit (Bld) [Volume fraction] 41.7 % 40-54 [facility] Laboratory - Chemistry and C hemistry - challengeOrdered By: [facility] 04-[facility]23 ALP [Catalytic activity/Vol] 123 U/L 45-117 [facility] ALT [Catalytic activity/Vol] 38 U/L 16-61 [facility] CO2 [Moles/Vol] 26.0 mmol/L 21.0-32.0 [facility] Globulin (S) [Mass/Vol] 4.5 g/dL 2.2-4.2 [facility] Urea nitrogen/Creatinine [Mass ratio] 11.8 mg/mg 10-20 [facility] Laboratory - Hematology and Cell countsOrdered By: [facility] on 04-15-2023 Erythrocyte distribution width (RBC) [Entitic vol] 40.3 fL 35.1-43.9 [facility] Erythrocyte distribution width (RBC) [Ratio] 13.7 % 11.6-14.6 [facility] Immature granulocytes/100 WBC (Bld) 0.200 % 0.0-0.9 [facility] Comment on above: IG% - Immature Granu locytes (promyelocytes, myelocytes and metamyelocytes) > 1% indicates that a LEFT SHIFT is Present. MCH (RBC) [Entitic mass] 25.6 pg 27.0-32.0 [facility] Nucleated RBC/100 WBC (Bld) [Ratio] 0 % 0-5 [facility] MCHC Auto (RBC) [Mass/Vol]Or dered By: Doron Castellanos on 04-15-2023 MCHC (RBC) [Mass/Vol] 31.4 g/dL 32-36 [facility] No Panel InformationOrdered By: [facility] on 04-[facility]23 Estimated GFR (MDRD) Amer 68 mL/min >60 [facility] Comment on above: GFR Calc Estimated GFR (MDRD) Non-Af Amer 56 mL/min >60 [facility] Comment on above: Non- GFR Calc Thyroid Stimulating Hormone (TSH) 1.80 uIU/mL 0.358-3.74 [facility] Platelets bldOrdered By: Doron Castellanos on 04-15-2023 Platelets (Bld) [#/Vol] 199 10*3/uL 150-450 [facility] Serum or plasma albumin evangelist urement (mass/volume)Ordered By: Doron Castellanos on 04-15-2023 Albumin [Mass/Vol] 3.5 g/dL 3.2-5.0 [facility] Serum or plasma albumin/glob ulin mass ratioOrdered By: Doron Castellanos on 04-15-2023 Albumin/Globulin [Mass ratio] 0.8 {ratio} 0.9-2.4 [facility] Serum or plasma calcium evangelist urement (mass/volume)Ordered By: Doron Castellanos on 04-15-2023 Calcium [Mass/Vol] 8.5 mg/dL 8.5-10.1 [facility] Serum or plasma creatinine m easurement (mass/volume)Ordered By: Doron Castellanos on 04-15-2023 Creatinine [Mass/Vol] 1.36 mg/dL 0.70-1.30 [facility] Comment on above: The validity of the calculated GFR & GFRAA in patients over 70 years has not been determined. Clinical correlation is essential. Serum or plasma urea nitroge n measurement (mass/volume)Ordered By: Doron Castellanos on 04-15-2023 Urea nitrogen [Mass/Vol] 16 mg/dL 7-18 [facility] Thin prep Papanicolaou smear with manual screeningOrdered By: Doron Castellanos on 04-15-2023 Thin prep Papanicolaou smear with manual screening 16 U/L 15-37 [facility] Thin prep Papanicolaou smear with manual screening 6 5-15 [facility] Laboratory - Microbiology an d Antimicrobial susceptibilityOrdered By: Doron Castellanos on 01-25-2023 SARS-CoV-2 (COVID-19) RNA MIKEY+probe Ql (Unsp spec) [facility] No Panel InformationOrdered By: Doron Castellanos on 01-25-2023 Influenza Types A,B Direct FA (DONNIE) [facility] RSV Ag EIAOrdered By: Doron guerin on 01-25-2023 RSV Ag Immune stain Ql (Tiss) [facility] Absolute lymphocyte countOrd ered By: Doron Castellanos on 10-22-2022 Lymphocytes Auto (Unsp spec) [#/Vol] 1.58 10*3/uL 0.83-4.51 [facility] Basophil percentageOrdered B y: Doron Castellanos on 10-22-2022 Basophils/100 WBC (Bld) 0.2 % 0-1 [facility] Bilirubin [Mass/Vol] 0.50 mg/dL 0.20-1.00 [facility] Comment on above: For patients on eltr ombopag therapy, use of Dimension [place] TBIL is not recommended. Chloride [Moles/Vol] 107 mmol/L 98-107 [facility] Eosinophils/100 WBC (Bld) 3.0 % 0-5 [facility] Glucose [Mass/Vol] 111 mg/dL 74-106 [facility] Comment on above: Fasting Glucose resu lt from 100 to 125 mg/dL suggests IMPAIRED HOMEOSTASIS per A.D.A. criteria. Neutrophils (Bld) [#/Vol] 2.6 10*3/uL 2.0-7.7 [facility] Neutrophils/100 WBC (Bld) 52.6 % 47-70 [facility] Potassium [Moles/Vol] 3.8 mmol/L 3.5-5.1 [facility] Protein [Mass/Vol] 7.6 g/dL 6.4-8.2 [facility] Sodium [Moles/Vol] 138 mmol/L 136-145 [facility] Testosterone [Mass/Vol] 382.04 ng/dL [facility] Comment on above: CENTRAL 90% REFERENC E RANGES MALE AGE <50 197.44 - 669.58 ng/dL MALE AGE > or = 50 187.72 - 684.19 ng/dL FEMALE AGE <50 8.38 - 35.01 ng/dL FEMALE AGE > or = 50 <7.00 - 35.92 ng/dL Effective as of 02/07/21 WBC (Bld) [#/Vol] 5.0 10*3/uL 4.4-11.0 [facility] Blood erythrocytes count (nu mber/volume)Ordered By: Doron Castellanos on 10-22-2022 RBC (Bld) [#/Vol] 4.99 10*6/uL 4.6-6.2 [facility] Blood hemoglobin measurement (mass/volume)Ordered By: Doron Castellanos on 10-22-2022 Hemoglobin (Bld) [Mass/Vol] 12.5 g/dL 13.0-16.5 [facility] Blood lymphocytes/100 leukoc ytesOrdered By: Doron Castellanos on 10-22-2022 Lymphocytes/100 WBC (Bld) 31.5 % 19-41 [facility] Blood monocytes/100 leukocyt esOrdered By: Doron Castellanos on 10-22-2022 Monocytes/100 WBC (Bld) 12.5 % 0-10 [facility] Blood platelet mean volumeOr dered By: Doron Castellanos on 10-22-2022 Platelet mean volume (Bld) [Entitic vol] 11.4 fL 6.2-12.0 [facility] Determination of erythrocyte mean corpuscular volume (MCV)Ordered By: Doron Castellanos on 10-22-2022 MCV (RBC) [Entitic vol] 81.4 fL 80-94 [facility] Hematocrit Auto (Bld) [Volum e fraction]Ordered By: Doron Idalmis 10-22-2022 Hematocrit (Bld) [Volume fraction] 40.6 % 40-54 [facility] Laboratory - Chemistry and C hemistry - challengeOrdered By: Doron Castellanos 10-22-2022 ALP [Catalytic activity/Vol] 128 U/L 45-117 [facility] ALT [Catalytic activity/Vol] 32 U/L 16-61 [facility] CO2 [Moles/Vol] 25.0 mmol/L 21.0-32.0 [facility] Globulin (S) [Mass/Vol] 4.2 g/dL 2.2-4.2 [facility] Urea nitrogen/Creatinine [Mass ratio] 10.5 mg/mg 10-20 [facility] Laboratory - Hematology and Cell countsOrdered By: Doron Castellanos 10-22-2022 Erythrocyte distribution width (RBC) [Entitic vol] 40.4 fL 35.1-43.9 [facility] Erythrocyte distribution width (RBC) [Ratio] 13.8 % 11.6-14.6 [facility] Immature granulocytes/100 WBC (Bld) 0.200 % 0.0-0.9 [facility] Comment on above: IG% - Immature Granu locytes (promyelocytes, myelocytes and metamyelocytes) > 1% indicates that a LEFT SHIFT is Present. MCH (RBC) [Entitic mass] 25.1 pg 27.0-32.0 [facility] Nucleated RBC/100 WBC (Bld) [Ratio] 0 % 0-5 [facility] MCHC Auto (RBC) [Mass/Vol]Or dered By: Doron Castellanos on 10-22-2022 MCHC (RBC) [Mass/Vol] 30.8 g/dL 32-36 [facility] No Panel InformationOrdered By: Doron Castellanos on 10-22-2022 Estimated GFR (MDRD) Amer 70 mL/min >60 [facility] Comment on above: GFR Calc Estimated GFR (MDRD) Non-Af Amer 58 mL/min >60 [facility] Comment on above: Non- GFR Calc Thyroid Stimulating Hormone (TSH) 1.37 uIU/mL 0.358-3.74 [facility] Vitamin D 25-Hydroxy 18.4 ng/mL [facility] Comment on above: Vitamin D 25(OH) Sta tus Range Deficiency <20 ng/mL (50nmol/L) Insufficiency 20 - 30 ng/mL (50 - 75 nmol/L) Sufficiency 30 - 100 ng/mL (75 - 250 nmol/L) Toxicity >100 ng/mL (>250 nmol/L) Platelets bldOrdered By: Doron Castellanos on 10-22-2022 Platelets (Bld) [#/Vol] 222 10*3/uL 150-450 [facility] Serum or plasma albumin evangelist urement (mass/volume)Ordered By: Doron Castellanos on 10-22-2022 Albumin [Mass/Vol] 3.4 g/dL 3.2-5.0 [facility] Serum or plasma albumin/glob ulin mass ratioOrdered By: Doron Castellanos 10-22-2022 Albumin/Globulin [Mass ratio] 0.8 {ratio} 0.9-2.4 [facility] Serum or plasma calcium evangelist urement (mass/volume)Ordered By: Doron Idalmis on 10-22-2022 Calcium [Mass/Vol] 8.6 mg/dL 8.5-10.1 [facility] Serum or plasma creatinine m easurement (mass/volume)Ordered By: Doron Idalmis on 10-22-2022 Creatinine [Mass/Vol] 1.33 mg/dL 0.70-1.30 [facility] Comment on above: The validity of the calculated GFR & GFRAA in patients over 70 years has not been determined. Clinical correlation is essential. Serum or plasma urea nitroge n measurement (mass/volume)Ordered By: Doron Idalmis on 10-22-2022 Urea nitrogen [Mass/Vol] 14 mg/dL 7-18 [facility] Thin prep Papanicolaou smear with manual screeningOrdered By: Doron Castellanos on 10-22-2022 Thin prep Papanicolaou smear with manual screening 15 U/L 15-37 [facility] Thin prep Papanicolaou smear with manual screening 6 5-15 [facility] Absolute lymphocyte counton 04-23-2022 Lymphocytes Auto (Unsp spec) [#/Vol] 2.29 10*3/uL 0.83-4.51 [facility] Work Phone: Basophil percentageon 2021 Basophils/100 WBC (Bld) 0.2 % 0-1 [facility] Work Phone: Bilirubin [Mass/Vol] 0.40 mg/dL 0.20-1.00 [facility] Work Phone: Comment on above: For patients on eltr ombopag therapy, use of Dimension [place] TBIL is not recommended. Chloride [Moles/Vol] 108 mmol/L 98-107 [facility] Work Phone: [phone] Eosinophils/100 WBC (Bld) 1.9 % 0-5 [facility] Work Phone: Glucose [Mass/Vol] 94 mg/dL 74-106 [facility] Work Phone: [phone] Neutrophils (Bld) [#/Vol] 2.2 10*3/uL 2.0-7.7 [facility] Work Phone: Neutrophils/100 WBC (Bld) 40.3 % 47-70 [facility] Work Phone: Potassium [Moles/Vol] 3.9 mmol/L 3.5-5.1 [facility] Work Phone: Comment on above: Slight Hemolysis, Re sult may be falsely increased. Protein [Mass/Vol] 7.8 g/dL 6.4-8.2 [facility] Work Phone: Sodium [Moles/Vol] 140 mmol/L 136-145 [facility] Work Phone: Testosterone [Mass/Vol] 432.51 ng/dL [facility] Work Phone: Comment on above: CENTRAL 90% REFERENC E RANGES MALE AGE <50 197.44 - 669.58 ng/dL MALE AGE > or = 50 187.72 - 684.19 ng/dL FEMALE AGE <50 8.38 - 35.01 ng/dL FEMALE AGE > or = 50 <7.00 - 35.92 ng/dL Effective as of 02/07/21 WBC (Bld) [#/Vol] 5.4 10*3/uL 4.4-11.0 [facility] Work Phone: Blood erythrocytes count (nu mber/volume)on 04-23-2022 RBC (Bld) [#/Vol] 4.92 10*6/uL 4.6-6.2 [facility] Work Phone: Blood hemoglobin measurement (mass/volume)on 04-23-2022 Hemoglobin (Bld) [Mass/Vol] 12.8 g/dL 13.0-16.5 [facility] Work Phone: Blood lymphocytes/100 leukoc yteson 04-23-2022 Lymphocytes/100 WBC (Bld) 42.8 % 19-41 [facility] Work Phone: Blood monocytes/100 leukocyt eson 04-23-2022 Monocytes/100 WBC (Bld) 14.6 % 0-10 [facility] Work Phone: Blood platelet mean volumeon 04-23-2022 Platelet mean volume (Bld) [Entitic vol] 11.0 fL 6.2-12.0 [facility] Work Phone: Determination of erythrocyte mean corpuscular volume (MCV)on 04-23-2022 MCV (RBC) [Entitic vol] 80.1 fL 80-94 [facility] Work Phone: Hematocrit Auto (Bld) [Volum e fraction]on 04-23-2022 Hematocrit (Bld) [Volume fraction] 39.4 % 40-54 [facility] Work Phone: Laboratory - Chemistry and C hemistry - challengeon 04-23-2022 ALP [Catalytic activity/Vol] 108 U/L 45-117 [facility] Work Phone: ALT [Catalytic activity/Vol] 42 U/L 16-61 [facility] Work Phone: CO2 [Moles/Vol] 26.0 mmol/L 21.0-32.0 [facility] Work Phone: Globulin (S) [Mass/Vol] 4.5 g/dL 2.2-4.2 [facility] Work Phone: Urea nitrogen/Creatinine [Mass ratio] 10.3 mg/mg 10-20 [facility] Work Phone: Laboratory - Hematology and Cell countson 04-23-2022 Erythrocyte distribution width (RBC) [Entitic vol] 41.4 fL 35.1-43.9 [facility] Work Phone: Erythrocyte distribution width (RBC) [Ratio] 14.2 % 11.6-14.6 [facility] Work Phone: Immature granulocytes/100 WBC (Bld) 0.200 % 0.0-0.9 [facility] Work Phone: Comment on above: IG% - Immature Granu locytes (promyelocytes, myelocytes and metamyelocytes) > 1% indicates that a LEFT SHIFT is Present. MCH (RBC) [Entitic mass] 26.0 pg 27.0-32.0 [facility] Work Phone: Nucleated RBC/100 WBC (Bld) [Ratio] 0 % 0-5 [facility] Work Phone: MCHC Auto (RBC) [Mass/Vol]on 04-23-2022 MCHC (RBC) [Mass/Vol] 32.5 g/dL 32-36 [facility] Work Phone: No Panel Informationon 04-23 Estimated GFR (MDRD) Amer 82 mL/min >60 [facility] Work Phone: Comment on above: GFR Calc Estimated GFR (MDRD) Non-Af Amer 68 mL/min >60 [facility] Work Phone: Comment on above: Non- GFR Calc Prostate Specific Antigen Screen 0.76 ng/mL 0.00-4.00 [facility] Work Phone: Comment on above: This test was perfor med using the TPSA assay method for the[facility] [place] chemistry system. Values obtained with differentassay methods cannot be used interchangably.When changing PSA assays in the course of monitoring apatient, additional sequential testing should be carriedout to confirm baseline values. Thyroid Stimulating Hormone (TSH) 2.16 uIU/mL 0.358-3.74 [facility] Work Phone: Vitamin D 25-Hydroxy 14.6 ng/mL [facility] Work Phone: Comment on above: Vitamin D 25(OH) Sta tus Range Deficiency <20 ng/mL (50nmol/L) Insufficiency 20 - 30 ng/mL (50 - 75 nmol/L) Sufficiency 30 - 100 ng/mL (75 - 250 nmol/L) Toxicity >100 ng/mL (>250 nmol/L) Platelets bldon 04-23-2022 Platelets (Bld) [#/Vol] 218 10*3/uL 150-450 [facility] Work Phone: Serum or plasma albumin evangelist urement (mass/volume)on 04-23-2022 Albumin [Mass/Vol] 3.3 g/dL 3.2-5.0 [facility] Work Phone: Serum or plasma albumin/glob ulin mass ratioon 04-23-2022 Albumin/Globulin [Mass ratio] 0.7 {ratio} 0.9-2.4 [facility] Work Phone: Serum or plasma calcium evangelist urement (mass/volume)on 04-23-2022 Calcium [Mass/Vol] 8.7 mg/dL 8.5-10.1 [facility] Work Phone: Serum or plasma creatinine m easurement (mass/volume)on 04-23-2022 Creatinine [Mass/Vol] 1.16 mg/dL 0.70-1.30 [facility] Work Phone: Comment on above: The validity of the calculated GFR & GFRAA in patients over 70 years has not been determined. Clinical correlation is essential. Serum or plasma urea nitroge n measurement (mass/volume)on 04-23-2022 Urea nitrogen [Mass/Vol] 12 mg/dL 7-18 [facility] Work Phone: Thin prep Papanicolaou smear with manual screeningon 04-23-2022 Thin prep Papanicolaou smear with manual screening 23 U/L 15-37 [facility] Work Phone: Comment on above: Slight Hemolysis, Re sult may be falsely increased. Thin prep Papanicolaou smear with manual screening 6 5-15 [facility] Work Phone: Absolute lymphocyte counton 10-19-2021 Lymphocytes Auto (Unsp spec) [#/Vol] 1.49 10*3/uL 0.83-4.51 [facility] Work Phone: Basophil percentageon 2021 Basophils/100 WBC (Bld) 0.2 % 0-1 [facility] Work Phone: Bilirubin [Mass/Vol] 0.40 mg/dL 0.20-1.00 [facility] Work Phone: Comment on above: For patients on eltr ombopag therapy, use of Dim[place] TBIL is not recommended. Chloride [Moles/Vol] 106 mmol/L 98-107 [facility] Work Phone: Eosinophils/100 WBC (Bld) 1.6 % 0-5 [facility] Work Phone: Glucose [Mass/Vol] 96 mg/dL 74-106 [facility] Work Phone: Neutrophils (Bld) [#/Vol] 2.7 10*3/uL 2.0-7.7 [facility] Work Phone: Neutrophils/100 WBC (Bld) 54.4 % 47-70 [facility] Work Phone: Potassium [Moles/Vol] 4.1 mmol/L 3.5-5.1 [facility] Work Phone: Protein [Mass/Vol] 7.7 g/dL 6.4-8.2 [facility] Work Phone: Sodium [Moles/Vol] 138 mmol/L 136-145 [facility] Work Phone: WBC (Bld) [#/Vol] 4.9 10*3/uL 4.4-11.0 [facility] Work Phone: Blood erythrocytes count (nu mber/volume)on 10-19-2021 RBC (Bld) [#/Vol] 5.16 10*6/uL 4.6-6.2 [facility] Work Phone: Blood hemoglobin measurement (mass/volume)on 10-19-2021 Hemoglobin (Bld) [Mass/Vol] 12.8 g/dL 13.0-16.5 [facility] Work Phone: Blood lymphocytes/100 leukoc yteson 10-19-2021 Lymphocytes/100 WBC (Bld) 30.2 % 19-41 [facility] Work Phone: Blood monocytes/100 leukocyt eson 10-19-2021 Monocytes/100 WBC (Bld) 13.4 % 0-10 [facility] Work Phone: Blood platelet mean volumeon 10-19-2021 Platelet mean volume (Bld) [Entitic vol] 10.3 fL 6.2-12.0 [facility] Work Phone: Determination of erythrocyte mean corpuscular volume (MCV)on 10-19-2021 MCV (RBC) [Entitic vol] 80.2 fL 80-94 [facility] Work Phone: [phone] Hematocrit Auto (Bld) [Volum e fraction]on 10-19-2021 Hematocrit (Bld) [Volume fraction] 41.4 % 40-54 [facility] Work Phone: Laboratory - Chemistry and C hemistry - challengeon 10-19-2021 ALP [Catalytic activity/Vol] 109 U/L 45-117 [facility] Work Phone: ALT [Catalytic activity/Vol] 76 U/L 16-61 [facility] Work Phone: CO2 [Moles/Vol] 26.0 mmol/L 21.0-32.0 [facility] Work Phone: Globulin (S) [Mass/Vol] 4.3 g/dL 2.2-4.2 [facility] Work Phone: Urea nitrogen/Creatinine [Mass ratio] 13.9 mg/mg 10-20 [facility] Work Phone: Laboratory - Hematology and Cell countson 10-19-2021 Erythrocyte distribution width (RBC) [Entitic vol] 39.0 [facility]L [facility]1-[facility] Erythrocyte distribution width (RBC) [Ratio] 13.4 % 11.6-14.6 [facility] Work Phone: Immature granulocytes/100 WBC (Bld) 0.200 % 0.0-0.9 [facility] Work Phone: Comment on above: IG% - Immature Granu locytes (promyelocytes, myelocytes and metamyelocytes) > 1% indicates that a LEFT SHIFT is Present. MCH (RBC) [Entitic mass] 24.8 pg 27.0-32.0 [facility] Work Phone: Nucleated RBC/100 WBC (Bld) [Ratio] 0 % 0-5 [facility] Work Phone: MCHC Auto (RBC) [Mass/Vol]on 10-19-2021 MCHC (RBC) [Mass/Vol] 30.9 g/dL 32-36 [facility] Work Phone: No Panel Informationon 10-19 Estimated GFR (MDRD) Amer 68 mL/min >60 [facility] Work Phone: Comment on above: GFR Calc Estimated GFR (MDRD) Non-Af Amer 56 mL/min >60 [facility] Work Phone: Comment on above: Non- GFR Calc Prostate Specific Antigen Screen 0.82 ng/mL 0.00-4.00 [facility] Work Phone: Comment on above: This test was perfor med using the TPSA assay method for the[facility]. Values obtained with differentassay methods cannot be used interchangably.When changing PSA assays in the course of monitoring apatient, additional sequential testing should be carriedout to confirm baseline values. Thyroid Stimulating Hormone (TSH) 1.87 uIU/mL 0.358-3.74 [facility] Work Phone: Platelets bldon 10-19-2021 Platelets (Bld) [#/Vol] 238 10*3/uL 150-450 [facility] Work Phone: Serum or plasma albumin evangelist urement (mass/volume)on 10-19-2021 Albumin [Mass/Vol] 3.4 g/dL 3.2-5.0 [facility] Work Phone: Serum or plasma albumin/glob ulin mass ratioon 10-19-2021 Albumin/Globulin [Mass ratio] 0.8 {ratio} 0.9-2.4 [facility] Work Phone: Serum or plasma calcium evangelist urement (mass/volume)on 10-19-2021 Calcium [Mass/Vol] 8.5 mg/dL 8.5-10.1 [facility] Work Phone: Serum or plasma creatinine m easurement (mass/volume)on 10-19-2021 Creatinine [Mass/Vol] 1.37 mg/dL 0.70-1.30 [facility] Work Phone: Comment on above: The validity of the calculated GFR & GFRAA in patients over 70 years has not been determined. Clinical correlation is essential. Serum or plasma urea nitroge n measurement (mass/volume)on 10-19-2021 Urea nitrogen [Mass/Vol] 19 mg/dL 7-18 [facility] Work Phone: Thin prep Papanicolaou smear with manual screeningon 10-19-2021 Thin prep Papanicolaou smear with manual screening 27 U/L 15-37 [facility] Work Phone: Thin prep Papanicolaou smear with manual screening 6 5-15 [facility] Work Phone: Basophil percentageon 2021 Creatinine [Mass/Vol] 1.0 mg/dL 0.70-1.30 [facility] Work Phone: No Panel Informationon 08-04 Bedside Estimated GFR (eGFR) > 60.0000 mL/min >60 [facility] Work Phone: Laboratory - Microbiology an d Antimicrobial susceptibilityon 07-24-2021 SARS-CoV-2 (COVID-19) RNA MIKEY+probe Ql (Unsp spec) Detected Not Detect [facility] Work Phone: Comment on above: Normal Reference Ran ge: Not DetectedMethod:(RT-PCR) real-time reverse transcriptase PCRLuminex KAMALA Instrument*The Food and Drug Administration (FDA) has issued an Emergency Use Authorization (EAU) for the KAMALA SARS-CoV-2 Assay for the rapid detection of the virus that causes COVID-19. This test has been validated, but the FDAs independent review of this validation is pending.*Negative results do not preclude infection and should not be used as the sole basis for treatment or patient management. Optimum specimen types and timing for peak viral levels during infections caused by SARS-CoV-2 have not been determined. Collection of multiple specimens from the same patient may be necessary to detect the virus. The possibility of a false negative result should be considered if the patient has clinical presentation or has had recent exposure. No Panel Informationon 07-24 Influenza Types A,B Direct FA ([facility]) [facility] Work Phone: XR TIBIA/FIBULA 2 VIEWS RIG Ton 12-06-2018 XR TIBIA/FIBULA 2 VIEWS RIGHT ORIGINAL XR TIBIA/FIBULA 2 VIEWS RIGHT CLINICAL STATEMENT: pain. Reported injury to the calf 2 weeks ago which has spread down toward the ankle" COMPARISON: None FINDINGS: There is an ill-defined bilobed lytic lesion along the lateral aspect of the distal tibia at the tibiofibular articulation as seen on the AP view. There is no fracture or dislocation demonstrated. Circumferential soft tissue swelling is seen without soft tissue gas. IMPRESSION: Ill-defined bilobed lytic lesion along the lateral aspect of the distal tibia at the tibiofibular articulation. If there is concern for infection, this could represent osteomyelitis. Other consideration is nonaggressive bone tumor such as an an chondroma or subchondral cyst.. Recommend ankle radiographs for further evaluation of this region. Circumferential swelling of the lower leg. If there is concern for infection, this may represent cellulitis. Other causes for edema are also considerations. I have personally reviewed the images of this examination and agree with the resident's findings and interpretation. Interpreted By: Brandt Álvarez MD Preliminary Report By: Murtaza Montez MD Electronically Signed By: Brandt Álvarez MD Dictated Date: 12/06/2018 8:39:29 PM Prelim Date: 12/06/2018 8:45:56 PM Sign Date: 12/06/2018 9:42:32 PM Normal [facility] ([place]) Vital Signs Date Time Vital Sign Value Performing Clinician Muriel madrid 07-27-2021 12:45-0500 Body temperature 98.6 [degF] Dr. Doron Castellanos Work Phone: [facility] Work Phone: 07-27-2021 12:45-0500 Diastolic blood pressure 90 mm[Hg] Dr. Doron Castellanos Work Phone: [facility] Work Phone: 07-27-2021 12:45-0500 Heart rate 56 /min Dr. Doron Castellanos Work Phone: [facility] Work Phone: 07-27-2021 12:45-0500 Respiratory rate 16 /min Dr. Doron Castellanos Work Phone: [facility] Work Phone: 07-27-2021 12:45-0500 SaO2% (BldA) [Mass fraction] 100 % Dr. Doron Castellanos Work Phone: [facility] Work Phone: 07-27-2021 12:45-0500 Systolic blood pressure 194 mm[Hg] Dr. Doron Castellanos Work Phone: [facility] Work Phone: 07-27-2021 11:02-0500 Body height 175.[address] Doron Castellanos Work Phone: [facility] Work Phone: 07-27-2021 11:02-0500 Body mass index (BMI) [Ratio] 32 kg/m2 Dr. Doron Castellanos Work Phone: [facility] Work Phone: 07-27-2021 11:02-0500 Body weight 98.[address] Doron Castellanos Work Phone: [facility] Work Phone: Encounters Encounter Date Encounter Type Care Provider Facility Start: 05-10-2025 ambulatory Jame Fuentes Facility :[facility] Start: 05-06-2025 End: 05-06-2025 ambulatory Ministerio Antunez Facility:[facility] Start: 04-09-[address] Doron Castellanos MD -[facility] Work Phone: Start: 04-09-2025 End: 04-09-2025 Patient encounter procedure Emma ARAYA -[facility] Work Phone: Start: 04-09-2025 End: 04-09-[address] Doron Castellanos MD Work Phone: -[facility] Start: 04-09-2025 End: 04-09-2025 ambulatory Doron Chi Idalmis Facility[facility] Start: 03-23-2025 End: 03-23-[address] Doron Castellanos MD Work Phone: -Laboratory Phy Office 3rd Flr Start: 03-23-2025 End: 03-23-[address] Doron Castellanos MD -Laboratory Phy Office 3rd Flr Start: 03-23-2025 End: 03-23-2025 ambulatory Doron Chi Idalmis Facility:[facility] Start: 11-06-2024 End: 11-06-2024 ambulatory [facility] Idalmis [facility] Start: 05-27-2024 End: 05-27-2024 ambulatory Doron [facility] Idalmis [facility] Start: 10-28-2023 End: 10-28-2023 ambulatory [facility] Work Phone: Start: 10-28-2023 End: 10-28-2023 Patient encounter procedure [facility]-Laboratory,Future Work Phone: Start: 08-08-2023 End: 08-08-2023 ambulatory [facility] Work Phone: Start: 08-08-2023 End: 08-08-2023 Patient encounter procedure [facility]-Sleep Lab Work Phone: Start: 04-15-2023 End: 04-15-[address] [facility] Start: 01-25-2023 End: 01-25-2023 ambulatory [facility] Work Phone: Start: 01-25-2023 End: 01-25-2023 Patient encounter procedure [facility]-Pulmonary Services/Neurology Work Phone: Start: 01-24-2023 End: 01-24-2023 ambulatory [facility] Work Phone: Start: 01-24-2023 End: 01-24-2023 Patient encounter procedure [facility]-Radiology, [facility] Work Phone: Start: 10-22-2022 End: 10-22-[address] [facility] Start: 05-11-2022 End: 05-11-2022 ambulatory [facility] Work Phone: Start: 05-11-2022 End: 05-11-[address] [facility] Start: 04-23-2022 End: 04-23-2022 ambulatory [facility] Work Phone: Start: 04-23-2022 End: 04-23-[address] [facility] Start: 04-19-2022 End: 04-19-[address] Start: 10-19-2021 End: 10-19-[address] [facility]ellanos [facility] Start: 10-09-2021 Non-patient / Non-visit Dr. Doron Castellanos Work Phone: [facility] Start: 08-04-2021 End: 08-04-[address] Doron Castellanos [facility] Start: 08-03-2021 End: 08-03-[address] Doron Castellanos Work Phone: [facility]-Radiology, [facility] Start: 07-27-2021 End: 07-27-[address] Doron Castellanos Work Phone: [facility]-Medical Surgical 3 Outp Start: 07-24-2021 End: 07-24-[address] Doron Castellanos Work Phone: [facility]-Pulmonary Services/Neurology Procedures Date Procedure Procedure Detail Performing Clinician Start: 04-09-2025 CT of thorax with contrast Dr. Doron Castellanos MD Work Phone: Start: 03-23-2025 Radex spine thoracic [address] Doron Castellanos MD Work Phone: Start: 01-25-2023 Coronavirus COVID-19 PCR Start: 01-25-2023 Influenza Types A,B Direct FA (DONNIE) Start: 01-25-2023 Respiratory syncytia l virus antigen assay Start: 01-24-2023 Plain chest X-ray Start: 05-11-2022 CT of soft tissues o f neck with contrast Start: 08-04-2021 CT angiography of ch est with contrast Dr. Doron Castellanos Work Phone: Start: 08-03-2021 Plain chest X-ray Dr. Tamanna Castellanos Work Phone: Start: 07-24-2021 Influenza Types A,B Direct FA (DONNIE) Dr. Doron Castellanos Work Phone: Start: 07-24-2021 End: 07-24-2021 Respiratory syncytial virus antigen assay Dr. Doron Castellanos Work Phone: Plan of Treatment Date Care Activity Detail Author Start: 04-09-2025 CT of thorax with contrast Chest WITH Contrast [facility] Start: 04-09-2025 Patient encounter procedure Registered Clinical -Cat Scan [facility] Work Phone: Start: 04-09-2025 End: 04-09-2025 Patient encounter procedure Screening for colon cancer -[facility] Work Phone: [facility] referral [facility] Work Phone: Payers Date Payer Category Payer Self-pay [id number] 2024 Unknown [id number] Medicare [id number] Private Health Insurance [id number] Unknown [id number] Unknown [id number] Unknown [id number] 2.16.8 [id number] Unknown [id number] 2.16.8 [id number] Unknown [id number] 2.16.8 [id number] Unknown [id number] 2.16.8 [id number] Unknown [id number] 2.16.8 [id number] Unknown [id number] 2.16.8 [id number] Unknown [id number] 2.16.8 [id number] Social History Date Type Detail Facility Start: 07-25-2021 End: 07-25-2021 Tobacco smoking status NHIS Unknown if ever smoked [facility] Start: 07-07-2018 With Family [facility] Start: 02-18-2019 Non-smoker [facility] Start: 1960 Sex Assigned At Male W [facility] Start: 07-25-2021 Tobacco smoking stat us NHIS Never smoked tobacco (finding) [facility] Sex Male [facility] Mental Status Date Assessment Result Facility 07-27-2021 Cognitive function Voice/Name;To uch/Shaking;L ight Pain;Deep Pain [facility] Work Phone: Progress note 04-09-2025 Note Date & Type Note Facility 04-09-2025 Progress note [facility] Radiology Diagnostic study note 03-24-2025 Note Date & Type Note Facility 03-24-2025 Radiology Diagnostic study note [facility] Imaging Services [address] [place] [address] Thoracic Spine 3 Views MR#: [id number] Acct: [id number] Name: RANDALL VILLATORO Rep #: [id number] : 1960 M 64 From: Yaya Moran MD PCP: Dr. Doron Castellanos MD Status: REG C KATE Study:Thoracic Spine 3 Views Date of Exam: 03/23/25 Exam# [id number] Ordering Dr: Doron Castellanos MD PROCEDURE: THORACIC SPINE 3 VIEWS 03/23/2025 REASON FOR EXAM: MUSCLE SPASM OF BACK TECHNIQUE: Procedure Code: RADSPT Modality: DX Procedure: THORACIC SPINE 3 VIEWS COMPARISON: None FINDINGS: Vertebrae: No fracture. Bone mineralization is preserved Discs: Mild multilevel degenerative disc disease of the lower cervical spine andmidthoracic spine Alignment: Very gentle scoliosis. No kyphosis or subluxation. Other: Visible lung parenchyma and soft tissues appear normal RAD/Thoracic Spine 3 Views IMPRESSION: Mild multilevel degenerative disc disease. No fracture. Reading Location: [id number] CC: Dr. Doron Castellanos MD ~ Forensic Structural Engineer: Signed [facility] Evaluation note Note Date & Type Note Facility Evaluation note No assessment information availa ble [facility] Work Phone: Evaluation note Note Date & Type Note Facility Evaluation note Diagnosis Onset Date Resolution Screening for colon cancer acute April 09, 2025 9:43am [facility] Work Phone: Progress note Note Date & Type Note Facility Progress note Note Date/Time April 09, 2025 10:24am [facility] [address] [place] [address] OFFICE VISIT Date of Service: 04/09/25 MR#: [id number] Acct: [id number] Name: RANDALL VILLATORO Rep #: [id number] : 1960 Provider: QUIANA Long Age/Sex: 64/M Location: [facility] Status: Signed Intake Vital Signs 07/27/21 12:02 Height 5 ft 9 in Intake Visit Reasons: pre colonoscopy Chief Complaint: Screening colonoscopy Allergies doxycycline (From Vibramycin) Allergy (Severe, Verified 04/09/25 09:50) Rash doxycycline calcium (From Vibramycin) Adverse Reaction (Verified 04/09/25 09:50) Hives doxycycline hyclate (From Vibramycin) Adverse Reaction (Verified 04/09/25 09:50) Hives doxycycline monohydrate (From Vibramycin) Adverse Reaction (Verified 04/09/25 09:50) Hives Medications ?Medication ?Instructions ?Recorded ?Confirmed ?Type metoprolol tartrate 100 mg tablet 100 mg PO DAILY bp 0 07/18/14 04/09/25 History albuterol sulfate 90 mcg/actuation 1 - 2 puff inhalati on Q6H PRN PRN 02/18/19 04/09/25 History aerosol inhaler Sob &/Or Wheezing amlodipine 10 mg tablet 10 mg PO DAILY 08/31/2103/16 History atorvastatin 80 mg tablet 80 mg PO DAILY 08/31/2103/16 History potassium chloride 10 mEq 10 meq PO DAILY 09/01/21 History tablet,extended release (Klor-Con) hydroxyzine HCl 50 mg tablet 100 mg PO BID 10/09/21 History cholecalciferol (vitamin D3) 25 25 mcg PO QDAY 5 04/09/25 History mcg (1,000 unit) capsule Have you fallen in the past year?: No PFSH Medical History Carpal tunnel syndrome Salmonella food poisoning Testicular torsion Hyperlipidemia Abnormal electrocardiogram (07/21/21) Obesity Essential hypertension Surgical History History of carpal tunnel surgery History of appendectomy History of tonsillectomy H/O left knee surgery Social History Smoking Status: Never smoker HPI HPI Chief Complaint: Screening colonoscopy Details: RANDALL VILLATORO, is a 64 M who presents to the office today for establishment. Patient referred from his primary care provider for screening colonoscopy. Patient's last colonoscopy was over 20 years ago he was admitted to the hospitalfor Salmonella infection. Patient has daily bowel movements that are normal. Patient denies any GI symptoms today including abdominal pain, constipation, diarrhea or blood in his stool. Patient denies family history of colon cancer. ROS Const Constitutional: No fatigue, fever(s) or weight change ENT ENT: No difficulty swallowing Gastro GI: Positive for nausea/dyspepsia; No abdominal pain, belching, bloating, change in bowel habits, change in stool character, coffee ground emesis, constipation, cramping, diarrhea, heartburn, difficulty swallowing, feeling full early, excessive flatus, incontinent of stools, Vomiting blood/hematemesis, Blood in stool, loose stools, Black,tarry stools, pain with swallowing, vomiting or other Musc Musculoskeletal: Positive for joint pain, back pain and stiffness Skin Skin: No yellowing of the eye or itchy eyes Psych Psychiatric: No anxiety and No depression Endo Endocrine: No fatigue or weight change Aller/Imm Allergy/Immunologic: No itchy eyes Nathan/Lymp Hematologic/Lymphatic: No easy bleeding or easy bruising Exam Const General: cooperative, healthy appearing and comfortable Nutritional Appearance: overweight Orientation: alert [facility] Head: normal to inspection Eyes General: appearance normal, both eyes and all related structures Neck Neck: normal visual inspection Chest Chest palpation & inspection: normal inspection of the chest Resp Effort & Inspection: normal respiratory effort Cardio Rate: regular rate Rhythm: regular rhythm GI Inspection: normal to inspection Auscultation: normal bowel sounds Palpation: soft and nontender Assessment and Plan Assessment and Plan (1) Screening for colon cancer: Status: Acute Plan: Randall is a 64-year-old male patient here today for screening colonoscopy. Patient's last colonoscopy was over 20 years ago while he was in the hospital for Salmonella infection. Patient denies any GI symptoms at this time. He denies history of colonic polyps. Patient also denies family history of colon cancer. Patient will be scheduled for colonoscopy. - Colonoscopy - Follow-up as needed Coding Level of Care Code Off vis,new,level 3 Diagnoses Screening for colon cancer Z12.11 Clinical Quality Measures Falls Risk Screening/Assistive Devices Have you fallen in the past year?: No 04/09/25 1032 <Electronically signed by Emma ARAYA> Date _ Emma ARAYA Cosigner Signature: Date (if applicable) CC: ~ [place] [employer] Work Phone: Reason for referral (narrative) Note Date & Type Note Facility Reason for referral (narrative) No reason for referral information available [facility] Work Phone: Summary Purpose Family History No Family History Records FoundNo Family History Records Found Advance Directives No Advanced Directives Records Found Advance Directive Response Recorded Date/ Time Living Will Yes February 18, 2019 1:03pm Power of Mobile Lounge Driver Or Operator Yes February 18 1:03pm Advance Directive Response Recorded Date/ Time Living Will Yes February 18, 2019 12:03pm Power of Mobile Lounge Driver Or Operator Yes February 18 12:03pm Chief Complaint and Reason for Visit Chief Complaint TESTING COVID POS RULING PE Amb Documentation Chief Complaint NECK MASS SWELLING Chief Complaint Other specified resp iratory disorders CHILLS WITHOUT FEVER Chief Complaint Sleep apnea, unspeci fied Chief Complaint Admit Date pre colonoscopy April 09, 2025 9:43am THORACIC RADICULOPATHY April 09, 2 025 2:13pm Reason for Visit Admit Date Screening for colon cancer March 9:43am Additional Source Comments (unrecognized sect ion and content) No Status Records FoundNo Status Records Found INFORMATION SOURCE (unrecogn ized section and content) DATE CREATED AUTHOR 12/21/2018 [facility] ([place]) DATE CREATED AUTHOR AUTHOR'S ORGANIZ ATION 05/10/2025 [facility] Goals (unrecognized section and content) Goals may be documented in a n alternate sectionGoals may be documented in an alternate sectionGoals may be documented in an alternate sectionGoals may be documented in an alternate sectionGoals may be documented in an alternate sectionGoals may be documented in an alternate sectionGoals may be documented in an alternate sectionGoals may be documented in an alternate sectionGoals may be documented in an alternate section Care Teams (unrecognized sec tion and content) Team Status: Active Member Role Status Dates Dr. Doron Castellanos MD Family Provider Active Dr. Doron Castellanos MD Primary Care Provider Active Team Status: Inactive Member Role Status Dates Dr. Doron Castellanos MD Primary Care Provider, Attending Provider Active Team Status: Active Member Role Status Dates Dr. Doron Castellanos MD Primary Care Provi lazara, Attending Provider, Referring Provider Active Team Status: Inactive Member Role Status Dates Dr. Doron Castellanos MD Primary Care Provi lazara, Attending Provider, Referring Provider Active Team Status: Active Member Role/Relationship Status Dates Dr. Doron Castellanos MD Primary care physician Active Team Status: Inactive Member Role/Relationship Status Dates Dr. Doron Castellanos MD Primary care physician Active Start: March 23, 2025 End: March 23, 2025 Dr. Doron Castellanos MD Attending physician Active Start: March 23, 2025 End: March 23, 2025 Dr. Doron Castellanos MD Referring Provider Active Start: March 23, 2025 End: March 23, 2025 Team Status: Inactive Member Role/Relationship Status Dates Dr. Doron Castellanos MD Referring Provider Active Start: April 09, 2025 End: April 09, 2025 QUIANA Long Attending physician Active Start: April 09, 2025 End: April 09, 2025 Team Status: Active Member Role/Relationship Status Dates Dr. Doron Castellanos MD Primary care physician Active Start: April 09, 2025 Dr. Doron Castellanos MD Attending physician Active Start: April 09, 2025 Dr. Doron Castellanos MD Referring Provider Active Start: April 09, 2025 FOR RECORDS PERTAINING TO PATIENTS WHO ARE [...] BE BASED ON THE PRIMARY CLINICAL RECORDS. [employer] [facility]. provides no warranty or guarantee of the accuracy or completeness of information in this document.
== END | disposition home or self-care (01) ==
LOC: MRI 10:18
PROVIDERS: PCP Family Medicine Geriatric Medicine; Referring Provider Family Medicine Geriatric Medicine; Visit Provider Family Medicine Geriatric Medicine
DX: N28.1 Cyst of kidney, acquired (principal)
CPT/HCPCS: 74183; A9575; A4216

== ENCOUNTER → 2025-06-07 | Outpatient (CLI) | payer BC, SELFPAY ==
--- NOTE | 2025-06-07 08:11 | ECHOD_ITS ---
Reason For Study Reason For Study: LBBB Procedure This was a 2D Doppler, Color Flow transthoracic echocardiogram. Exam performed in department. Left Ventricle Normal-sized left ventricle. LVEF by Menjivar's biplane: 65%. E/e' suggest normal filling pressures. Septal motion consistent with pre-existing conduction abnormality. No other regional wall motion abnormalities. Right Ventricle Normal right ventricle. Normal systolic function. RVSP estimated at 30 to 35 mmHg. Atria The left and right atria are normal. Right atrial pressure estimated at 3 mmHg. Normal atrial septum. Mitral Valve Normal mitral valve. Trace mitral regurgitation. No mitral stenosis. Tricuspid Valve Normal tricuspid valve. Trace tricuspid regurgitation. No tricuspid stenosis. Aortic Valve Aortic valve is trileaflet. No aortic regurgitation. No hemodynamically significant aortic stenosis. Pulmonic Valve Normal pulmonic valve. Trace pulmonary regurgitation. No pulmonary valve stenosis. Great Vessels Normal aortic root. Normal ascending aorta. Pericardium/Pleural No pericardial effusion. Epicardial fat. MMode/2D Measurements & Calculations LVIDd: 4.9 cm IVSd: 1.1 cm LVOT diam: 2.0 cm LVIDs: 2.7 cm LVPWd: 0.96 cm LVOT area: 3.3 cm2 RVDd: 3.5 cm FS: 45.0 % Ao root diam: 2.9 cm asc Aorta Diam: 3.0 cm LAV(MOD- bp): 34.8 ml LAV(MOD- bp) Indexed: 14.9 ml/m2 LAV(MOD- sp2): 31.7 ml LAV(MOD- sp4): 34.8 ml SV(MOD- sp4): 28.0 ml LVAd ap4: 23.1 cm2 LVAd ap2: 33.2 cm2 LVLd ap4: 8.4 cm LVLd ap2: 9.3 cm SI(MOD- sp4): 12.0 ml/m2 EDV(MOD-sp4): 53.7 ml EDV(MOD-sp2): 100.7 ml EDV(sp4-el): 54.4 ml EDV(sp2-el): 100.3 ml LVAs ap4: 14.3 cm2 LVAs ap2: 17.6 cm2 LVLs ap4: 7.3 cm LVLs ap2: 7.7 cm ESV(MOD-sp4): 25.7 ml ESV(MOD-sp2): 34.5 ml ESV(sp4-el): 23.8 ml ESV(sp2-el): 34.4 ml EF(MOD-sp4): 52.1 % EF(MOD-sp2): 65.8 % EF(sp4-el): 56.1 % SV(MOD-sp2): 66.2 ml SV(sp4-el): 30.5 ml Ao sinus diam: 3.2 cm SI(MOD-sp2): 28.3 ml/m2 Ao ST Junction: 2.4 cm LA dimension(2D): 4.3 cm LA A4 area: 14.7 cm2 TAPSE: 2.5 cm RA A4 area: 12.1 cm2 Time Measurements MV dec time: 0.36 sec Doppler Measurements & Calculations MV E max curry: 46.4 cm/sec Lat Peak E' Curry: 7.9 cm/sec Med Peak E' Curry: 6.5 cm/sec MV A max curry: 72.5 cm/sec E/E' lat: 5.9 E/E' med: 7.1 MV E/A: 0.64 MV dec slope: 130.0 cm/sec2 Ao V2 max: 146.6 cm/sec LV V1 max: 103.6 cm/sec Ao max P.6 mmHg LV V1 max P.3 mmHg Ao V2 mean: 103.2 cm/sec LV V1 mean P.3 mmHg Ao mean P.7 mmHg LV V1 mean: 70.7 cm/sec Ao V2 VTI: 29.8 cm LV V1 VTI: 22.8 cm AV (velocity ratio): 0.77 BILLY(I,D): 2.5 cm2 BILLY(V,D): 2.3 cm2 SV(LVOT): 74.3 ml PA V2 max: 82.8 cm/sec TR max curry: 244.8 cm/sec TR max P.0 mmHg ECHO/Echo Complete Interpretation Summary Normal-sized left ventricle Normal left ventricular systolic function, with Menjivar's biplane EF: 65% E/e' suggest normal filling pressures Normal right ventricular systolic function No hemodynamically significant valvular disease. Ordering Physician: Ministerio Antunez Referring Physician: Doron Castellanos Chi Performed By: Eden Laird RDCS
== END | disposition home or self-care (01) ==
LOC: CVS 08:10
PROVIDERS: PCP Family Medicine Geriatric Medicine; Referring Provider Student in an Organized Health Care Education/Training Program; Visit Provider Student in an Organized Health Care Education/Training Program
DX: I44.7 Left bundle-branch block, unspecified (principal); R07.89 Other chest pain
CPT/HCPCS: 93306